=== PATIENT | female | born 1975 | race Caucasian/White ===

== ENCOUNTER 2021-01-20 09:47 | Emergency (ER) | payer BC, OTHER ==
[2021-01-20] MEDS ORDERED: NA CHLORIDE 0.9% 1,000 ML ONE (10:30)
[2021-01-20] MEDS ORDERED: METOCLOPRAMIDE 5 MG TAB ONE (10:31)
[2021-01-20] MEDS ORDERED: METOCLOPRAMIDE 10 MG/2mL INJ ONE (10:32)
[2021-01-20] MEDS ORDERED: dexAMETHasone 10 MG/ML VIAL ONE (10:33)
[2021-01-20] MEDS ORDERED: KETOROLAC 30 MG/ML INJ ONE (10:33)
[2021-01-20] MEDS ORDERED: DIPHENHYDRAMINE 12.5MG/5ML LIQ ONE (10:34)
[2021-01-20] MEDS ORDERED: DIPHENHYDRAMINE 50 MG/ML VIAL ONE (10:34)
--- NOTE | 2021-01-20 11:51 | RAD REPORT ---
EXAM DESCRIPTION: CT - Head Brain Wo Cont - 01/20/2021 11:41 am CLINICAL HISTORY: HEADACHE COMPARISON: HEAD BRAIN W O CONTRAST dated 12/20/2009; HEAD BRAIN W O CONTRAST dated 07/20/2007 TECHNIQUE: All CT scans are performed using dose optimization technique as appropriate and may inclu de automated exposure control or mA/KV adjustment according to patient size. FINDINGS: No intracranial hemorrhage, hydrocephalus or extra-axial fluid collection.No areas of brai n edema or evidence of midline shift. The paranasal sinuses and mastoids are clear. The calvarium is intact. IMPRESSION: No acute intracranial abnormality.
--- NOTE | 2021-01-20 12:43 | RAD REPORT ---
EXAM DESCRIPTION: CT - Head angio - 01/20/2021 12:22 pm CLINICAL HISTORY: HEADACHE TECHNIQUE: During dynamic enhancement using nonionic IV contrast, axial 1 millimeter thick images of the head were obtained. Sagittal and axial reconstruction images were generated using MIP technique and reviewed. All CT scans are performed using dose optimization technique as appropriate and may include automated exposure control or mA/KV adjustment according to patient size. COMPARISON: CT head same date FINDINGS: No aneurysm or vascular malformation identified. Major venous sinuses are patent. No stenosis, named branch occlusion, vasculitis or other significant vascular finding identifiable. L eft vertebral artery is dominant with vertebrobasilar tortuosity noted. IMPRESSION: Negative CT angio head examination for acute or significant finding.
[2021-01-20] MEDS ORDERED: DIAZEPAM 10 MG/2 ML INJ SYRINGE ONE (13:38)
--- NOTE | 2021-01-20 14:42 | ER ---
Nurse's Notes [facility] Name: Mary Malagon Age: 45 yrs Sex: Female : 1975 Arrival Date: 01/20/2021 Time: 09:50 Bed 18 Private MD: Diagnosis: Migraine Presentation: 01/20 10:07 Chief complaint: Patient states: Woke up severe migraine on Sunday, took sumatriptan jl7 yesterday and Sunday and nothing is working. Coronavirus screen: At this time, the client does not indicate any symptoms associated with coronavirus-19. Ebola Screen: No symptoms or risks identified at this time. Risk Assessment: Do you want to hurt yourself or someone else? Patient reports no desire to harm self or others. Onset of symptoms was January 18, 2021. Care prior to arrival: None. 10:07 Method Of Arrival: Ambulatory jl7 10:07 Acuity: FRAN 3 jl7 10:30 Initial Sepsis Screen: Does the patient meet any 2 criteria? No. Patient's initial jg9 sepsis screen is negative. 10:30 Initial Sepsis Screen: Does the patient have a suspected source of infection? No. jg9 Patient's initial sepsis screen is negative. Triage Assessment: 10:07 General: Appears in no apparent distress. uncomfortable, Behavior is calm, cooperative, jl7 appropriate for age. Pain: Complains of pain in J[place]ON Pain currently is 10 out of 10 on a pain scale. Neuro: Level of Consciousness is awake, alert, obeys commands, Oriented to person, place, time, situation. Cardiovascular: Patient's skin is warm and dry. Respiratory: Airway is patent Respiratory effort is even, unlabored, Respiratory pattern is regular, symmetrical. Derm: Skin is pink, warm \T\ dry. 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 - Social history:: Smoking status: Patient denies any tobacco usage or history of. Screenin:30 Abuse screen: Denies threats or abuse. Denies injuries from another. Nutritional jg9 screening: No deficits noted. Tuberculosis screening: No symptoms or risk factors identified. Fall Risk None identified. Assessment: 10:30 General: Appears uncomfortable, Behavior is calm, cooperative, appropriate for age. jg9 Pain: Complains of pain in head-c/o migraine-hx of migraines medication not working at home Pain currently is 10 out of 10 on a pain scale. Aggravated by increased activity, heat, cold, Noted to be resistant to movement, front and back of head-ice pack place per pt request. Neuro: No deficits noted. Cardiovascular: No deficits noted. Respiratory: No deficits noted. GI: No deficits noted. : No deficits noted. EENT: No deficits noted. Derm: No deficits noted. Musculoskeletal: No deficits noted. Vital Signs: 10:07 BP 132 / 94; Pulse 115; Resp 19; Temp 98.2; Pulse Ox 100% ; Weight 63.5 kg; Height 5 jl7 ft. 7 in. (170.18 cm); Pain 10/10; 10:35 BP 133 / 82; Pulse 98; Resp 17 S; Pulse Ox 100% on R/A; jg9 11:05 BP 125 / 87; Pulse 89; Resp 17 S; Pulse Ox 100% on R/A; jg9 13:30 BP 132 / 78; Pulse 88; Resp 16; Pulse Ox 96% on R/A; jg9 14:30 BP 111 / 66; Pulse 97; Resp 14; Pulse Ox 99% on R/A; jg9 10:07 Body Mass Index 21.93 (63.50 kg, 170.18 cm) 7 ED Course: 09:50 Patient arrived in ED. kc5 10:05 Polo Martines PA is PHCP. jmm 10:05 Anu Benz MD is Attending Physician. jmm 10:07 Arm band placed on right wrist. Antipyretics given from triage as ordered by an ER jl7 provider. 10:10 Triage completed. jl7 10:28 Mary Berry is Primary Nurse. jg9 10:30 Patient has correct armband on for positive identification. Bed in low position. Call jg9 light in reach. Side rails up X 1. ice pack for migraine pain. 10:40 Inserted saline lock: 20 gauge in left antecubital area, using aseptic technique. jg9 11:42 CT Head Brain wo Cont In Process Unspecified. EDMS 12:22 CT Head Angio In Process Unspecified. EDMS 14:40 Otoniel Castellon MD is Referral Physician. [facility] 14:53 No provider procedures requiring assistance completed. jg9 14:53 IV discontinued. jg9 Administered Medications: 10:45 Drug: Ketorolac 30 mg Route: IVP; Site: left antecubital; jg9 11:15 Follow up: Response: No adverse reaction; Pain is unchanged, physician notified jg9 10:46 Drug: Decadron - Dexamethasone 10 mg Route: IVP; Site: left antecubital; jg9 11:15 Follow up: Response: No adverse reaction; No change in condition jg9 10:47 Drug: diphenhydrAMINE 12.5 mg Route: IVP; Site: left antecubital; jg9 11:15 Follow up: Response: No adverse reaction; No change in condition jg9 10:47 Drug: Reglan (metoCLOPramide) 20 mg Route: IVP; Site: left antecubital; jg9 11:15 Follow up: Response: No adverse reaction; Nausea is decreased jg9 10:47 Drug: NS 0.9% 1000 ml Route: IV; Rate: 1 bolus; Site: left antecubital; jg9 12:00 Follow up: IV Status: Completed infusion; IV Intake: 1000ml j9 13:42 Drug: Valium (diazepam) 5 mg Route: IVP; Site: left antecubital; jg9 14:00 Follow up: Response: No adverse reaction; Marked relief of symptoms j9 Intake: 12:00 IV: 1000ml; Total: 1000ml. jg9 Outcome: 14:41 Discharge ordered by . [facility] 14:53 Discharged to home ambulatory. jg9 14:53 Condition: stable 14:53 Discharge instructions given to patient, Instructed on discharge instructions, follow up and referral plans. Demonstrated understanding of instructions, follow-up care, medications, Prescriptions given X 1. 14:54 Patient left the ED. jg9 Signatures: Dispatcher [employer] Polo Ramos PA PA jmm Leal, Jahala, RN RN jl7 Lisa Del Real kc5 Mary Berry jg9
--- NOTE | 2021-01-20 14:42 | EDPHYS ---
Physician Documentation [facility] Name: Mary Malagon Age: 45 yrs Sex: Female : 1975 Arrival Date: 01/20/2021 Time: 09:50 Bed 18 Private MD: ED Physician Anu Benz HPI: 01/20 14:34 This 45 yrs old Female presents to ER via Ambulatory with complaints of Migraine. jmm 14:34 The patient complains of pain to the right frontal area, right temporal area, right jmm side of forehead, right gnosticist and right eye. Onset: The symptoms/episode began/occurred gradually, 3 day(s) ago. Associated signs and symptoms: Pertinent positives: Photophobia. This is a 45-year-old female with a history of mild migraines and hypothyroidism the presents emerged department with complaints of right-sided migraine beginning approximately 3 days ago which is not relieved with her daily medication and her prescription for Imitrex. Patient states that the light exacerbates symptoms and is also having nausea. Denies fever or neck stiffness. 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 - Social history:: Smoking status: Patient denies any tobacco usage or history of. ROS: 14:34 Constitutional: Negative for fever, chills, and weight loss. jmm 14:34 Eyes: Positive for photophobia. 14:34 Neuro: Positive for headache. 14:34 All other systems are negative. Exam: 14:34 Head/Face: atraumatic. Eyes: EOMI, no conjunctival erythema appreciated ENT: Moist jmm Mucus Membranes Neck: Trachea midline, Supple Chest/axilla: Normal chest wall appearance and motion. Cardiovascular: Regular rate and rhythm. No edema appreciated Respiratory: Normal respirations, no respiratory distress appreciated Abdomen/GI: Non distended, soft Back: Normal ROM Skin: General appearance color normal MS/ Extremity: Moves all extremities, no obvious deformities appreciated, no edema noted to the lower extremities Neuro: Awake and alert, normal gait Psych: Behavior is normal, Mood is normal, Patient is cooperative and pleasant 14:34 Constitutional: The patient appears alert, awake, uncomfortable. Vital Signs: 10:07 BP 132 / 94; Pulse 115; Resp 19; Temp 98.2; Pulse Ox 100% ; Weight 63.5 kg; Height 5 7 ft. 7 in. (170.18 cm); Pain 10/10; 10:35 BP 133 / 82; Pulse 98; Resp 17 S; Pulse Ox 100% on R/A; jg9 11:05 BP 125 / 87; Pulse 89; Resp 17 S; Pulse Ox 100% on R/A; jg9 13:30 BP 132 / 78; Pulse 88; Resp 16; Pulse Ox 96% on R/A; jg9 14:30 BP 111 / 66; Pulse 97; Resp 14; Pulse Ox 99% on R/A; jg9 10:07 Body Mass Index 21.93 (63.50 kg, 170.18 cm) 7 MDM: 10:13 Patient medically screened. [facility] 14:34 Data reviewed: vital signs, nurses notes. Counseling: I had a detailed discussion with sylvia the patient and/or guardian regarding: the historical points, exam findings, and any diagnostic results supporting the discharge/admit diagnosis, radiology results, the need for outpatient follow up, to return to the emergency department if symptoms worsen or persist or if there are any questions or concerns that arise at home. ED course: Patient's pain is relieved in the ED. I do not currently suspect subarachnoid hemorrhage or meningitis. Patient is afebrile nontoxic, neck is supple. Patient advised to follow-up with neurology for further evaluation otherwise given strict return precautions. Patient understood agrees plan of care.. 01/20 10:52 Order name: CT Head Brain wo Cont; Complete Time: 11:52 [facility] 01/20 12:04 Order name: CT Head Angio; Complete Time: 12:47 [facility] 01/20 10:15 Order name: Saline Lock; Complete Time: 10:48 [facility] Administered Medications: 10:45 Drug: Ketorolac 30 mg Route: IVP; Site: left antecubital; jg9 11:15 Follow up: Response: No adverse reaction; Pain is unchanged, physician notified jg9 10:46 Drug: Decadron - Dexamethasone 10 mg Route: IVP; Site: left antecubital; jg9 11:15 Follow up: Response: No adverse reaction; No change in condition jg9 10:47 Drug: diphenhydrAMINE 12.5 mg Route: IVP; Site: left antecubital; jg9 11:15 Follow up: Response: No adverse reaction; No change in condition jg9 10:47 Drug: Reglan (metoCLOPramide) 20 mg Route: IVP; Site: left antecubital; jg9 11:15 Follow up: Response: No adverse reaction; Nausea is decreased jg9 10:47 Drug: NS 0.9% 1000 ml Route: IV; Rate: 1 bolus; Site: left antecubital; jg9 12:00 Follow up: IV Status: Completed infusion; IV Intake: 1000ml jg9 13:42 Drug: Valium (diazepam) 5 mg Route: IVP; Site: left antecubital; jg9 14:00 Follow up: Response: No adverse reaction; Marked relief of symptoms jg9 Disposition: 01/21 07:50 Co-signature as Attending Physician, Anu Benz MD I agree with the assessment and sp3 plan of care. Disposition Summary: 01/20/21 14:41 Discharge Ordered Location: Home [facility] Condition: Stable [facility] Diagnosis - Migraine [facility] Followup: [facility] - With: Otoniel Castellon MD - When: 2 - 3 days - Reason: Recheck today's complaints, Continuance of care, Re-evaluation by your physician Discharge Instructions: - Discharge Summary Sheet [facility] - Migraine Headache [facility] Forms: - Medication Reconciliation Form [facility] - Thank You Letter [facility] - Antibiotic Education [facility] - Prescription Opioid Use [facility] Prescriptions: - Zanaflex 4 mg Oral Tablet - take 1 tablet by ORAL route every 8 hours As needed; 20 tablet; Refills: 0, jmm Product Selection Permitted Signatures: Dispatcher [employer] EDPolo Castillo PA PA jmm Leal, Jahala, RN RN jl7 Anu Benz MD MD sp3 Mary Berry jg9
[2021-01-20 15:08] VITALS: TEMP 98.2
[2021-01-20 15:20] VITALS: BP 111/66; O2SAT 99
== END 2021-01-20 14:54 | disposition home or self-care (01) ==
LOC: ER 09:47
DX: G43.909 Migraine, unspecified, not intractable, without status migrainosus (principal); E03.9 Hypothyroidism, unspecified
CPT/HCPCS: 96361; 82565; 70450; 70496; 96375; 96374; 99284; Q9967; J2765; J1200; J3360; J1100; J7030; Q0163

== ENCOUNTER 2021-02-05 19:15 | Observation (INO) | payer BC ==
[2021-02-05] MEDS ORDERED: ASPIRIN 81 MG CHEWABLE TABLET ONE ×2 (19:25→22:07)
[2021-02-05 19:48] LABS: Absolute Lymphocytes (CBC) 0.8 K/uL (0.7-4.9); Basophils % 0.6 % (0-1.3); Hematocrit 41.3 % (36.0-45.0); Lymphocytes % 12.5 % (15.3-44.8); MPV 7.3 fL (7.6-11.3); RBC Red Blood Cell Count 4.92 M/uL (3.86-4.86)
[2021-02-05 20:08] LABS: ALT/SGPT 25 U/L (12-78); AST/SGOT 14 U/L (15-37); Albumin 3.6 g/dL (3.4-5.0); Alkaline Phosphatase 75 U/L (45-117); BUN Blood Urea Nitrogen 13 mg/dL (7-18); Bicarbonate 22 mmol/L (21-32); Bilirubin Direct < 0.1 mg/dL (0-0.2); Bilirubin Total 0.2 mg/dL (0.2-1.0); Glucose Level 106 mg/dL (74-106); NT PRO-BNP 22 pg/mL (<125); Potassium 3.9 mmol/L (3.5-5.1); Protein, Total 7.6 g/dL (6.4-8.2); Sodium Level 138 mmol/L (136-145); Troponin (Emerg Dept Use Only) < 0.02 ng/mL (0.0-0.045)
[2021-02-05] MEDS ORDERED: MORPHINE 4 MG/ML SYR ONE ×2 (20:22→22:07)
[2021-02-05] MEDS ORDERED: ONDANSETRON 4 MG/2 ML VIAL ONE (20:22)
--- NOTE | 2021-02-05 20:41 | RAD REPORT ---
EXAM DESCRIPTION: RAD - Chest Single View - 02/05/2021 7:53 pm CLINICAL HISTORY: CHEST PAIN COMPARISON: CHEST SINGLE VIEW dated 03/20/2012; CHEST SINGLE VIEW dated 03/15/2012; CHEST SINGLE VIEW da angie 12/20/2009; CHEST PA AND LAT 2 VIEW dated 07/06/2009 FINDINGS: Lines: None. Lungs: No evidence of edema or pneumonia. Pleural: No significant pleural effusions or pneumothorax. Cardiac: The heart size is within normal limits. Bones: No acute fractures. Other: IMPRESSION: No acute cardiopulmonary disease.
--- NOTE | 2021-02-05 21:00 | RAD REPORT ---
EXAM DESCRIPTION: CTAngio Aorta For Dissection - 02/05/2021 8:46 pm CLINICAL HISTORY: Dyspnea;Pain COMPARISON: No comparisons TECHNIQUE: CT of the chest, abdomen, and pelvis was performed. All CT scans are performed using dose optimization technique as appropriate and may include automated exposure control or mA/KV adjustment according to patient size. FINDINGS: Thorax: Chest Wall: No abnormal mass Lungs: No acute abnormality. Pleura: No effusions or pneumothorax. Nancy/Mediastinum: No lymphadenopathy. Small hiatal hernia. Mild circumferential thickened distal esop hagus which may reflect esophagitis. Aorta/Pulmonary Arteries: Unremarkable Heart: Normal size. Abdomen/Pelvis: Liver: No acute abnormality or suspicious lesions. Biliary: No biliary ductal dilatation. Stomach: No significant focal abnormality. Duodenum: No significant focal abnormality. Pancreas: No significant abnormality. Spleen: No significant abnormality. Adrenal: No suspicious lesions. Kidney/ureter: No hydronephrosis. No renal calculi. Retroperitoneum: No retroperitoneal adenopathy. Vascular: No aneurysm. Atherosclerosis. Bowel: No significant focal abnormality. Peritoneum: No ascites or free air. Bladder: Grossly unremarkable. Reproductive: No adnexal masses. Bones: No acute fracture. Other: n/a IMPRESSION: No acute findings within the chest, abdomen, or pelvis. No aortic aneurysm, aortic disse ction, or pulmonary embolus identified.
--- NOTE | 2021-02-05 21:11 | ER ---
Nurse's Notes [facility] Name: Mary Malagon Age: 45 yrs Sex: Female : 1975 Arrival Date: 02/05/2021 Time: 19:18 Bed 17 Private MD: Diagnosis: Chest pain, unspecified;Essential (primary) hypertension;Tachycardia, unspecified Presentation: 02/05 19:24 Chief complaint: Patient states: Chest pain X 2 hours - radiating down left arm and up ld1 left side of neck and into left shoulder blade. Coronavirus screen: At this time, the client does not indicate any symptoms associated with coronavirus-19. Ebola Screen: No symptoms or risks identified at this time. Initial Sepsis Screen: Does the patient meet any 2 criteria? No. Patient's initial sepsis screen is negative. Does the patient have a suspected source of infection? No. Patient's initial sepsis screen is negative. Onset of symptoms was February 05, 2021. 19:24 Method Of Arrival: Wheelchair ld1 19:24 Acuity: FRAN 3 ld1 22:00 Risk Assessment: Do you want to hurt yourself or someone else? Patient reports no mr2 desire to harm self or others. Triage Assessment: 19:31 General: Appears in no apparent distress. uncomfortable, Behavior is anxious, crying. ld1 Pain: Complains of pain in left breast Pain radiates to face, anterior aspect of left shoulder, left bicep and left sternocleidomastoid Pain currently is 10 out of 10 on a pain scale. Quality of pain is described as shooting, stabbing, throbbing, Pain began gradually, Is intermittent. Cardiovascular: Capillary refill < 3 seconds Patient's skin is warm and dry. Rhythm is sinus tachycardia. Respiratory: Reports shortness of breath Airway is patent Respiratory effort is even, unlabored, Respiratory pattern is regular, symmetrical, Onset: The symptoms/episode began/occurred gradually, the patient has mild shortness of breath. 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 - Social history:: Smoking status: Patient denies any tobacco usage or history of. Patient uses alcohol, occasionally. - Family history:: not pertinent. Screenin:00 Abuse screen: Denies threats or abuse. Denies injuries from another. Nutritional mr2 screening: No deficits noted. Tuberculosis screening: No symptoms or risk factors identified. Fall Risk None identified. Assessment: 23:00 Cardiovascular: No deficits noted. Respiratory: Airway is patent Breath sounds are mr2 clear. Vital Signs: 19:31 BP 157 / 114; Pulse 130; Resp 22; Temp 98.6(O); Pulse Ox 100% on R/A; Weight 63.5 kg; ld1 Height 5 ft. 7 in. (170.18 cm); Pain 10/10; 23:40 BP 124 / 84; Pulse 84; Resp 18; Temp 98.4; Pulse Ox 100% on R/A; Weight 63.5 kg; Height mr2 5 ft. 2 in. (157.48 cm); 23:40 Body Mass Index 25.61 (63.50 kg, 157.48 cm) mr2 ED Course: 19:18 Patient arrived in ED. ja2 19:31 Triage completed. ld1 19:31 Arm band placed on right wrist. ld1 19:37 Inserted saline lock: 20 gauge in left antecubital area, using aseptic technique. Blood ld1 collected. 19:53 XRAY Chest (1 view) In Process Unspecified. EDMS 20:13 Scott Esteban MD is Attending Physician. keven 20:46 CT Aorta for Dissection In Process Unspecified. EDMS 21:02 Marty Monique, GAVINO is Primary Nurse. mr2 21:10 Alejo Ray DO is Hospitalizing Provider. keven 22:00 Patient has correct armband on for positive identification. mr2 22:00 No provider procedures requiring assistance completed. Patient admitted, IV remains in mr2 place. Administered Medications: 20:40 Drug: morphine 4 mg Route: IVP; Site: left antecubital; mr2 20:40 Drug: Zofran (Ondansetron) 4 mg Route: IVP; Site: right antecubital; mr2 22:03 Drug: Reglan (metoCLOPramide) 10 mg Route: IVP; Site: left antecubital; mr2 22:03 Drug: morphine 2 mg Route: IVP; Site: left antecubital; mr2 22:03 Drug: Benadryl (diphenhydrAMINE) 25 mg Route: IVP; Site: left antecubital; mr2 22:03 Drug: Ketorolac 15 mg Route: IVP; Site: left antecubital; mr2 22:04 Drug: Aspirin Chewable Tablet 324 mg Route: PO; mr2 22:05 Drug: Labetalol 100 mg Route: PO; mr2 23:00 Drug: NS 0.9% 500 ml Route: IV; Rate: bolus; Site: left antecubital; mr2 23:01 Drug: morphine 2 mg Route: IVP; Site: left antecubital; mr2 23:02 Not Given (not indicatedd): Labetalol 10 mg IVP once over 2 mins; For SBP greater than mr2 140. Hold for HR less than 60, notify provider. 02/06 00:29 Not Given (Other Intervention Used): Labetalol 10 mg IVP once la1 00:31 Not Given (Patient Refused): ProTONIX (pantoprazole) 40 mg IVP once mr2 Outcome: 02/05 21:11 Decision to Hospitalize by Provider. keven 23:50 Admitted to Med/surg mr2 23:50 Condition: stable 23:50 Instructed on the need for admit. 02/06 00:38 Patient left the ED. mr2 Signatures: Dispatcher [employer] EDMS Scott Esteban MD MD cha Dibbern, Lauren, RN RN ld1 Priyanka Pratt Mike, RN RN mr2 Venu Michael [facility]
--- NOTE | 2021-02-05 21:11 | EDPHYS ---
Physician Documentation [facility] Name: Mary Malagon Age: 45 yrs Sex: Female : 1975 Arrival Date: 02/05/2021 Time: 19:18 Bed 17 Private MD: ED Physician Scott Esteban HPI: 02/05 20:23 This 45 yrs old Female presents to ER via Wheelchair with complaints of keven Breathing Difficulty, Chest Pain, Shortness Of Breath. 20:23 The patient has shortness of breath at rest, with light activity. Onset: The keven symptoms/episode began/occurred just prior to arrival. Duration: The symptoms are continuous, and are steadily getting worse. The patient's shortness of breath is aggravated by nothing, is alleviated by nothing. Associated signs and symptoms: Pertinent positives: chest pain, diaphoresis. Severity of symptoms: At their worst the symptoms were severe in the emergency department the symptoms are unchanged. 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 - Social history:: Smoking status: Patient denies any tobacco usage or history of. Patient uses alcohol, occasionally. - Family history:: not pertinent. ROS: 20:26 Constitutional: Negative for fever, chills, and weight loss, Eyes: Negative for injury, keven pain, redness, and discharge, ENT: Negative for injury, pain, and discharge, Neck: Negative for injury, pain, and swelling, Abdomen/GI: Negative for abdominal pain, nausea, vomiting, diarrhea, and constipation, Back: Negative for injury and pain, : Negative for injury, bleeding, discharge, and swelling, MS/Extremity: Negative for injury and deformity, Skin: Negative for injury, rash, and discoloration, Neuro: Negative for headache, weakness, numbness, tingling, and seizure, Psych: Negative for depression, anxiety, suicide ideation, homicidal ideation, and hallucinations, Allergy/Immunology: Negative for hives, rash, and allergies, Endocrine: Negative for neck swelling, polydipsia, polyuria, polyphagia, and marked weight changes, Hematologic/Lymphatic: Negative for swollen nodes, abnormal bleeding, and unusual bruising. 20:26 Cardiovascular: Positive for chest pain, of the chest. 20:26 Respiratory: Positive for shortness of breath, at rest. Exam: 20:26 Constitutional: This is a well developed, well nourished patient who is awake, alert, keven and in no acute distress. Head/Face: Normocephalic, atraumatic. Eyes: Pupils equal round and reactive to light, extra-ocular motions intact. Lids and lashes normal. Conjunctiva and sclera are non-icteric and not injected. Cornea within normal limits. Periorbital areas with no swelling, redness, or edema. ENT: Nares patent. No nasal discharge, no septal abnormalities noted. Tympanic membranes are normal and external auditory canals are clear. Oropharynx with no redness, swelling, or masses, exudates, or evidence of obstruction, uvula midline. Mucous membranes moist. Neck: Trachea midline, no thyromegaly or masses palpated, and no cervical lymphadenopathy. Supple, full range of motion without nuchal rigidity, or vertebral point tenderness. No Meningismus. Chest/axilla: Normal chest wall appearance and motion. Nontender with no deformity. No lesions are appreciated. Respiratory: Lungs have equal breath sounds bilaterally, clear to auscultation and percussion. No rales, rhonchi or wheezes noted. No increased work of breathing, no retractions or nasal flaring. Abdomen/GI: Soft, non-tender, with normal bowel sounds. No distension or tympany. No guarding or rebound. No evidence of tenderness throughout. Back: No spinal tenderness. No costovertebral tenderness. Full range of motion. Skin: Warm, dry with normal turgor. Normal color with no rashes, no lesions, and no evidence of cellulitis. MS/ Extremity: Pulses equal, no cyanosis. Neurovascular intact. Full, normal range of motion. Neuro: Awake and alert, GCS 15, oriented to person, place, time, and situation. Cranial nerves II-XII grossly intact. Motor strength 5/5 in all extremities. Sensory grossly intact. Cerebellar exam normal. Normal gait. Psych: Awake, alert, with orientation to person, place and time. Behavior, mood, and affect are within normal limits. 20:26 Cardiovascular: Rate: tachycardic, Rhythm: regular, Pulses: Pulses are 4+ in bilateral radial, brachial, femoral, popliteal, posterior tibial and and dorsalis pedis arteries.. Heart sounds: normal, Edema: is not appreciated, JVD: is not appreciated. 20:26 ECG was reviewed by the Attending Physician. Vital Signs: 19:31 BP 157 / 114; Pulse 130; Resp 22; Temp 98.6(O); Pulse Ox 100% on R/A; Weight 63.5 kg; ld1 Height 5 ft. 7 in. (170.18 cm); Pain 10/10; 23:40 BP 124 / 84; Pulse 84; Resp 18; Temp 98.4; Pulse Ox 100% on R/A; Weight 63.5 kg; Height mr2 5 ft. 2 in. (157.48 cm); 23:40 Body Mass Index 25.61 (63.50 kg, 157.48 cm) mr2 MDM: 20:13 Patient medically screened. keven 20:31 Differential diagnosis: Anemia Anxiety Reaction CHF exacerbation, Myocardial Infarction keven pneumonia, Pneumothorax pulmonary edema, Pulmonary Embolism Unstable Angina. Antibiotic administration: Not indicated. The patient's Wells Deep Vein Thrombosis Score was calculated as follows: Total Score: 0-2 Pts- Low Risk. The patient's pulmonary embolism risk score was calculated as follows: Total Score: 0-2 points. This patient was found to be at low risk for a pulmonary embolism by using the Well's assessment criteria. Immunization status:. Data reviewed: vital signs, nurses notes, lab test result(s), EKG, radiologic studies, CT scan, plain films. 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 Test interpretation: by ED physician or midlevel provider: ECG, plain radiologic studies. Counseling: I had a detailed discussion with the patient and/or guardian regarding: the historical points, exam findings, and any diagnostic results supporting the discharge/admit diagnosis, lab results, radiology results, the need for further work-up and treatment in the hospital. 02/05 19:34 Order name: Basic Metabolic Panel ld1 02/05 19:34 Order name: CBC with Diff; Complete Time: 20:18 [facility] 02/05 19:34 Order name: LFT's; Complete Time: 20:18 [facility] 02/05 19:34 Order name: Magnesium; Complete Time: 20:18 [facility] 02/05 19:34 Order name: NT PRO-BNP; Complete Time: 20:18 [facility] 02/05 19:34 Order name: PT-INR; Complete Time: 20:18 [facility] 02/05 19:34 Order name: Troponin (emerg Dept Use Only); Complete Time: 20:18 [facility] 02/05 19:34 Order name: XRAY Chest (1 view); Complete Time: 21:08 [facility] 02/05 19:35 Order name: Basic Metabolic Panel; Complete Time: 20:18 [facility] 02/05 20:21 Order name: SARS-COV-2 RT PCR (Document "Date of Onset" if Symptomatic) [facility] 02/05 20:21 Order name: Lipase [facility] 02/05 20:21 Order name: CT Aorta for Dissection; Complete Time: 21:08 [facility] 02/05 20:22 Order name: Urine Culture [facility] 02/05 19:34 Order name: EKG; Complete Time: 19:35 [facility] 02/05 19:34 Order name: Cardiac monitoring; Complete Time: 20:00 [facility] 02/05 19:34 Order name: EKG - Nurse/Tech; Complete Time: 19:35 [facility] 02/05 19:34 Order name: IV Saline Lock; Complete Time: 19:37 [facility] 02/05 19:34 Order name: Labs collected and sent; Complete Time: 19:37 [facility] 02/05 19:34 Order name: O2 Per Protocol; Complete Time: 19:35 [facility] 02/05 19:34 Order name: O2 Sat Monitoring; Complete Time: 19:35 [facility] 02/05 20:22 Order name: Urine Dipstick-Ancillary (obtain specimen); Complete Time: 00:31 [facility] EC:26 Rate is 134 beats/min. Rhythm is regular. QRS [place] is Normal. [place] interval is normal. [facility] QRS interval is normal. QT interval is normal. No Q waves. T waves are Normal. No ST changes noted. Clinical impression: Sinus tachycardia and No evidence of ischemia. Interpreted by me. Reviewed by me. Administered Medications: 20:40 Drug: morphine 4 mg Route: IVP; Site: left antecubital; mr2 20:40 Drug: Zofran (Ondansetron) 4 mg Route: IVP; Site: right antecubital; mr2 22:03 Drug: Reglan (metoCLOPramide) 10 mg Route: IVP; Site: left antecubital; mr2 22:03 Drug: morphine 2 mg Route: IVP; Site: left antecubital; mr2 22:03 Drug: Benadryl (diphenhydrAMINE) 25 mg Route: IVP; Site: left antecubital; mr2 22:03 Drug: Ketorolac 15 mg Route: IVP; Site: left antecubital; mr2 22:04 Drug: Aspirin Chewable Tablet 324 mg Route: PO; mr2 22:05 Drug: Labetalol 100 mg Route: PO; mr2 23:00 Drug: NS 0.9% 500 ml Route: IV; Rate: bolus; Site: left antecubital; mr2 23:01 Drug: morphine 2 mg Route: IVP; Site: left antecubital; mr2 23:02 Not Given (not indicatedd): Labetalol 10 mg IVP once over 2 mins; For SBP greater than mr2 140. Hold for HR less than 60, notify provider. 02/06 00:29 Not Given (Other Intervention Used): Labetalol 10 mg IVP once la1 00:31 Not Given (Patient Refused): ProTONIX (pantoprazole) 40 mg IVP once mr2 Disposition Summary: 02/05/21 21:11 Hospitalization Ordered Hospitalization Status: Observation keven Provider: Alejo Ray cha Location: Telemetry/MedSurg (observation) keven Condition: Fair keven Problem: new keven Symptoms: have improved keven Bed/Room Type: Standard keven Room Assignment: 212(02/05/21 22:49) cg Diagnosis - Chest pain, unspecified keven - Essential (primary) hypertension keven - Tachycardia, unspecified keven Forms: - Medication Reconciliation Form keven - SBAR form keven Signatures: Dispatcher [employer] EDScott Smith MD MD cha Attema, Lee, COFFEE SHOP AIDE-C COFFEE SHOP AIDE-Cla1 Itzel Eckert RN RN Camille Avalos RN RN ld1 Reynard, Marty, RN RN mr2 Corrections: (The following items were deleted from the chart) 02/05 22:49 21:11 [facility]
[2021-02-05] MEDS ORDERED: METOCLOPRAMIDE 10 MG/2mL INJ ONE (22:06)
[2021-02-05] MEDS ORDERED: DIPHENHYDRAMINE 50 MG/ML VIAL ONE (22:06)
[2021-02-05] MEDS ORDERED: KETOROLAC 30 MG/ML INJ ONE (22:07)
--- NOTE | 2021-02-05 22:29 | P.HP ---
Certification for Inpatient Patient admitted to: Observation With expected LOS: <2 Midnights Patient will require the following post-hospital care: None Practitioner: I am a practitioner with admitting privileges, knowledge of patient current condition, hospital course, and medical plan of care. Services: Services provided to patient in accordance with Admission requirements found in Title 42 Section 412.3 of the Code of Federal Regulations Patient History Date of Service: 02/05/21 Primary Care Provider: none Reason for admission: Chest pain History of Present Illness: 45-year-old female with history of hypothyroidism, migraine headaches presented to the emergency department for chest pain. Patient reports that she was sitting at home with family celebrating [place] when she got a sudden onset of pressure-like chest pain to the left anterior chest wall radiating to left arm with an additional stabbing chest pain between the left ribs. Patient was evaluated in the emergency department labs were unremarkable Covid test negative CT dissection protocol demonstrates no acute findings within the chest abdomen or pelvis no aortic aneurysm or aortic dissection or pulmonary embolus identified. Upon arrival to the ED patient was significantly hypertensive and tachycardic after receiving the medication is has improved greatly. EKG without acute changes, emergency department provider wishes to admit to observation for ACS rule out. 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 moist/pink, EOMI, Sclerae nonicteric Neck: Supple, 2+ carotid pulse no bruit, No LAD, Without JVD or thyroid abnormality Respiratory: Clear to auscultation bilaterally, Normal air movement Cardiovascular: Regular rate/rhythm, Normal S1 S2 Capillary refill: <2 Seconds Gastrointestinal: Normal bowel sounds, No tenderness Musculoskeletal: No tenderness Integumentary: No rashes Neurological: Normal speech, Normal strength at 5/5 x4 extr, Normal tone, Normal affect Lymphatics: No axilla or inguinal lymphadenopathy - Studies Laboratory Data (last 24 hrs) 02/05/21 19:40: Lipase 196 02/05/21 19:40: PT 11.5, INR 1.00 02/05/21 19:40: WBC 6.40, Hgb 13.6, Hct 41.3, Plt Count 250 02/05/21 19:40: Sodium 138, Potassium 3.9, BUN 13, Creatinine 0.90, Glucose 106, Magnesium 2.0, Total Bilirubin 0.2, AST 14 L, ALT 25, Alkaline Phosphatase 75 Assessment and Plan - Plan Assessment: Plan: Assessment: Chest pain rule out ACS Hypothyroidism Migraines Plan: Chest pain rule out ACS: Trend troponins, monitor on telemetry, cardiology consult in place. Continue with low-dose beta-tracie, aspirin, statin therapy. Obtain thyroid and lipid panels. Hypothyroidism: Thyroid panel with morning lab, obtain and continue medication. Migraines: Patient currently with migraine we will hold off on triptan therapy given current chest pain. Treated with IV medication. DVT PPX: Lovenox Code status: Full code Discharge Plan: Home Plan to discharge in: 24 Hours - Advance Directives Does patient have a Living Will: No Does patient have a Durable POA for Healthcare: No - Code Status/Comfort Care Code Status Assessed: Yes (FC) Critical Care: No Time Spent Managing Pts Care (In Minutes): 55
[2021-02-06] MEDS ORDERED: ONDANSETRON 4 MG/2 ML VIAL IV PRN (00:45)
[2021-02-06] MEDS ORDERED: SODIUM CHLORIDE 0.9% 10ML INJ IV PRN (00:45)
[2021-02-06] MEDS ORDERED: MORPHINE 2 MG/ML SYR IV PRN (00:45)
[2021-02-06 01:15] VITALS: BMI 21.8
[2021-02-06 01:17] VITALS: TEMP 98.7
[2021-02-06 02:41] LABS: Absolute Lymphocytes (CBC) 1.3 K/uL (0.7-4.9); Basophils % 0.7 % (0-1.3); Hematocrit 40.1 % (36.0-45.0); Lymphocytes % 26.3 % (15.3-44.8); MPV 7.3 fL (7.6-11.3); RBC Red Blood Cell Count 4.76 M/uL (3.86-4.86)
[2021-02-06 03:10] LABS: Albumin 3.2 g/dL (3.4-5.0); Bilirubin Total 0.2 mg/dL (0.2-1.0); Magnesium 2.2 mg/dL (1.8-2.4); Potassium 3.8 mmol/L (3.5-5.1)
[2021-02-06 03:11] LABS: Thyroid Stimulating Hormone 6.33 uIU/mL (0.360-3.740)
--- NOTE | 2021-02-06 05:59 | P.DS ---
Admission Date: 02/05/21 Discharge Date: 02/06/21 Primary Care Provider: none Disposition: ROUTINE DISCHARGE Discharge Condition: GOOD Reason for Admission: Chest pain Consultations: none Procedures: COVID: Negative CXR: COMPARISON: CHEST SINGLE VIEW dated 03/20/2012; CHEST SINGLE VIEW dated 03/15/2012; CHEST SINGLE VIEW dated 12/20/2009; CHEST PA AND LAT 2 VIEW dated 07/06/2009 FINDINGS: Lines: None. Lungs: No evidence of edema or pneumonia. Pleural: No significant pleural effusions or pneumothorax. Cardiac: The heart size is within normal limits. Bones: No acute fractures. IMPRESSION: No acute cardiopulmonary disease. CT dissection: COMPARISON: No comparisons TECHNIQUE: CT of the chest, abdomen, and pelvis was performed. All CT scans are performed using dose optimization technique as appropriate and may include automated exposure control or mA/KV adjustment according to patient size. FINDINGS: Thorax: Chest Wall: No abnormal mass Lungs: No acute abnormality. Pleura: No effusions or pneumothorax. Nancy/Mediastinum: No lymphadenopathy. Small hiatal hernia. Mild circumferential thickened distal esophagus which may reflect esophagitis. Aorta/Pulmonary Arteries: Unremarkable Heart: Normal size. Abdomen/Pelvis: Liver: No acute abnormality or suspicious lesions. Biliary: No biliary ductal dilatation. Stomach: No significant focal abnormality. Duodenum: No significant focal abnormality. Pancreas: No significant abnormality. Spleen: No significant abnormality. Adrenal: No suspicious lesions. Kidney/ureter: No hydronephrosis. No renal calculi. Retroperitoneum: No retroperitoneal adenopathy. Vascular: No aneurysm. Atherosclerosis. Bowel: No significant focal abnormality. Peritoneum: No ascites or free air. Bladder: Grossly unremarkable. Reproductive: No adnexal masses. Bones: No acute fracture. IMPRESSION: No acute findings within the chest, abdomen, or pelvis. No aortic aneurysm, aortic dissection, or pulmonary embolus identified. Medical Problem List: Chest pain likely related to GERD/Hiatal hernia with CT scan showing mild circumferential thickening to the distal esophagus suggestive of esophagitis Hypothyroidism Migraines Brief History of Present Illness: 45-year-old female with history of hypothyroidism, migraines. She presented with chest pain. She was celebrating [place] when she felt a sudden chest pressure to the left chest wall. It was a stabbing-like sensation between her ribs. Patient came to the ER for further evaluation. Patient initially hypertensive and tachycardic. Patient was admitted for further evaluation and treatment. Hospital Course: Patient presented with chest pain. Patient was evaluated in the emergency room. No significant EKG changes noted. Cardiac enzymes have been unremarkable. CT scan revealed mild circumferential thickening to the distal esophagus suggestive of esophagitis. Small hiatal hernia noted. Patient has done well. As mentioned cardiac enzymes unremarkable. Blood pressure was initially elevated blood pressure and heart rate. Patient was given medication in the ER. Blood pressure back to baseline. No need for medication at this time. Patient without significant pain at discharge. At discharge recommend to follow-up with her PCP within 1 week to follow-up this hospitalization. At discharge will recommend to start Protonix 40 mg daily. Education on GERD/hiatal hernia with esophagitis will be provided. Recommend follow-up with GI as an outpatient to further evaluate. GERD diet provided. We will also recommend cardiology evaluation as an outpatient to further address. Patient with hypothyroidism. Overall stable. At discharge patient will continue with her medicationSynthroid 75 mcg daily. Patient with history of migraines. Patient will continue with nortriptyline 25 mg at bedtime and Imitrex 100 mg as directed on onset of migraine. Vital Signs/Physical Exam: Temp Pulse Resp BP Pulse Ox 98.7 F 80 20 104/52 L 91 02/06/21 01:15 02/06/21 01:15 02/06/21 01:15 02/06/21 01:15 02/06/21 01:15 General: Alert, In no apparent distress, Oriented x3, Cooperative HEENT: Atraumatic Neck: Supple Respiratory: Clear to auscultation bilaterally, Normal air movement Cardiovascular: Normal pulses, Regular rate/rhythm Gastrointestinal: Normal bowel sounds, No ascites Musculoskeletal: No erythema, No tenderness, No warmth Integumentary: No tenderness/swelling, No erythema, No warmth, No cyanosis Neurological: Normal speech, Normal strength at 5/5 x4 extr, Normal tone Laboratory Data at Discharge: WBC 5.00 K/uL (4.3-10.9) D 02/06/21 02:22 Hgb 13.1 g/dL (12.0-15.0) 02/06/21 02:22 Hct 40.1 % (36.0-45.0) 02/06/21 02:22 Plt Count 219 K/uL (152-406) 02/06/21 02:22 PT 11.5 SECONDS (9.5-12.5) 02/05/21 19:40 INR 1.00 02/05/21 19:40 Sodium 139 mmol/L (136-145) 02/06/21 02:22 Potassium 3.8 mmol/L (3.5-5.1) 02/06/21 02:22 BUN 12 mg/dL (7-18) 02/06/21 02:22 Creatinine 0.79 mg/dL (0.55-1.3) 02/06/21 02:22 Glucose 88 mg/dL (74-106) 02/06/21 02:22 Magnesium 2.2 mg/dL (1.8-2.4) 02/06/21 02:22 Total Bilirubin 0.2 mg/dL (0.2-1.0) 02/06/21 02:22 AST 19 U/L (15-37) 02/06/21 02:22 ALT 23 U/L (12-78) 02/06/21 02:22 Alkaline Phosphatase 68 U/L (45-117) 02/06/21 02:22 Troponin I < 0.02 ng/mL (0.0-0.045) 02/06/21 02:22 Lipase 196 U/L (73-393) 02/05/21 19:40 Home Medications: Levothyroxine Sodium [Levothyroxine] 75 mcg PO [id number] 02/06/21 Nortriptyline HCl 25 mg PO BEDTIME 02/06/21 Pantoprazole [Protonix Tab] 40 mg PO DAILY #30 tab 02/06/21 Sumatriptan Succinate [Imitrex] 100 mg PO DAILY PRN 02/06/21 New Medications: Pantoprazole [Protonix Tab] 40 mg PO DAILY #30 tab Physician Discharge Instructions: Patient presented with chest pain. Patient was evaluated in the emergency room. No significant EKG changes noted. Cardiac enzymes have been unremarkable. CT scan revealed mild circumferential thickening to the distal esophagus suggestive of esophagitis. Small hiatal hernia noted. Patient has done well. As mentioned cardiac enzymes unremarkable. Blood pressure was initially elevated blood pressure and heart rate. Patient was given medication in the ER. Blood pressure back to baseline. No need for medication at this time. Patient without significant pain at discharge. At discharge recommend to follow-up with her PCP within 1 week to follow-up this hospitalization. At discharge will recommend to start Protonix 40 mg daily. Education on GERD/hiatal hernia with esophagitis will be provided. Recommend follow-up with GI as an outpatient to further evaluate. GERD diet provided. We will also recommend cardiology evaluation as an outpatient to further address. Patient with hypothyroidism. Overall stable. At discharge patient will continue with her medicationSynthroid 75 mcg daily. Patient with history of migraines. Patient will continue with nortriptyline 25 mg at bedtime and Imitrex 100 mg as directed on onset of migraine. Diet: AHA Activity: Ad moreno Followup: Unknown,U [Primary Care Provider] - Time spent managing pt's care (in minutes): 55
[2021-02-06] MEDS ORDERED: METOPROLOL TAR 25 MG TAB PO SCH (06:00)
[2021-02-06 06:26] VITALS: BP 109/65
[2021-02-06] MEDS ORDERED: ASPIRIN EC 81 MG TAB PO SCH (09:00)
[2021-02-06] MEDS ORDERED: ENOXAPARIN 40 MG/0.4 ML SQ SCH (09:00)
[2021-02-06] MEDS ORDERED: PANTOPRAZOLE 40 MG INJ IVP SCH ×2 (09:00)
[2021-02-06 11:38] VITALS: O2SAT 98
[2021-02-06] MEDS ORDERED: ATORVASTATIN 40 MG TAB PO SCH (21:00)
[2021-02-07] MEDS ORDERED: PANTOPRAZOLE 40MG TABLET PO SCH (06:30)
== END 2021-02-06 09:42 | disposition home or self-care (01) ==
LOC: ER 19:15 → ERHOLD 23:19 → 2ND 02-06 00:06
PROVIDERS: ADMIT Family Medicine; ATTEND Family Medicine
DX: R07.9 Chest pain, unspecified (principal); E03.9 Hypothyroidism, unspecified; G43.909 Migraine, unspecified, not intractable, without status migrainosus; K44.9 Diaphragmatic hernia without obstruction or gangrene; Z20.822 Contact with and (suspected) exposure to COVID-19
CPT/HCPCS: 85025 ×2; 80048; 36415; 83735 ×2; 85610; 80076; 84443; 84484 ×3; 84439; 83690; 80053; 83880; 71275; 74175; 71045; U0003; Q9967; J2765; J1200; C9113 ×2; J1650; J2270; J2405; 93005; G0378

== ENCOUNTER 2021-02-10 10:43 | Emergency (ER) | payer BC ==
--- OUTSIDE RECORDS SUMMARY | 2021-02-10 10:46 | XMS REPORT | Continuity of Care Document ---
:1975 Author Organization [facility] t Address [address] [place] [address] Care Team Providers Name Role Phone Aroldo Luis Antonio Primary Care Physician Only, Db Test Attending Clinician Unavailable Fede BOGGS Attending Clinician FEDE Attending Clinician Unavailable VALERIY Attending Clinician Unavailable Jose KANG Attending Clinician Unavailable Valeriy BOGGS Attending Clinician Pob, Lab Main Attending Clinician Unavailable Doctor Unassigned, Name Attending Clinician Unavailable ABILIO KIRK Attending Clinician Unavailable JEANNINE Attending Clinician Unavailable JEANNINE Admitting Clinician Unavailable Payers Payer Name Policy Type Policy Number Effective Date Expiration Date S ource Problems Condition Condition Condition Status Onset Resolution Last Treating Co mments Source Name Details Category Date Date Treatment Clinician Date No known No known Disease Unive rs active active ity of problems problems [facility] Allergies, Adverse Reactions, Alerts Allergy Allergy Status Severity Reaction(s) Onset Inactive Treating Comm ents Source Name Type Date Date Clinician NO KNOWN Drug Active Univers ALLERGIE Class ity of S [facility] Social History Social Habit Start Date Stop Date Quantity Comments Source History of tobacco Cigarette Smoker [place] of use [facility] Alcohol Comment occasional Universit y [facility] Exposure to Yes University SARS-CoV-2 (event) [facility] Cigarettes smoked 2020-05-10 2020-05-10 Univers ity of current (pack per 00:00:00 00:00:00 ) - Reported Branch Cigarette 2020-05-10 2020-05-10 University of pack-years 00:00:00 00:00:00 [facility] Alcohol intake 2020-05-10 2020-05-10 Current drinker Unive rsity of 00:00:00 00:00:00 of alcohol [facility] (finding) Branch Sex [birth year] Universit y of 00:00:00 00:00:00 [facility] Smoking Status Start Date Stop Date Source Current every day smoker 2020-05-10 00:00:00 Uni versity of [facility] Medications Ordered Filled Start Stop Current Ordering Indication Dosage Frequency Signature Comments Components Source Medication Medication Date Date Medication? Clinician (SIG) Name Name levothyroxi 150ug Take 150 Univers ne 150 mcg 3-30 03-30 mcg by ity of tablet 17:25: 00:00 mouth [place] 18 :00 every Medical morning. Branch levothyroxi Yes [id number] 125ug Take 1 Univers ne 125 mcg 3-30 tablet by ity of tablet 00:00: mouth [place] 00 every Medical morning. Branch levothyroxi Yes [id number] 125ug Take 1 Univers ne 125 mcg 3-30 tablet by ity of tablet 00:00: mouth [place] 00 every Medical morning. Branch Addis-3-DHA Yes Take by Un omega -EPA-Fish 05-10 mouth. ity of Oil (FISH 19:44: [place] OIL) 1,200 27 Medical (144-216) Branch mg Cap Cholecalcif Yes Take by Un omega travis, 05-10 mouth. ity of Vitamin D3, 19:44: [place] (VITAMIN 27 Medical D3) 125 mcg Branch (5,000 unit) tablet Green Tea Yes Take by Univ ers [place] 05-10 mouth. ity of Extract 19:44: [place] (GREEN TEA) 27 Medical 250 mg Cap Branch Addis-3-DHA Yes Take by Un omega -EPA-Fish 05-10 mouth. ity of Oil (FISH 19:44: [place] OIL) 1,200 27 Medical (144-216) Branch mg Cap Cholecalcif Yes Take by Un omega travis, - mouth. ity of Vitamin D3, 19:44: [place] (VITAMIN 27 Medical D3) 125 mcg Branch (5,000 unit) tablet Green Tea Yes Take by [facility] ers [place] 05-10 mouth. ity of Extract 19:44: [place] (GREEN TEA) 27 Medical 250 mg Cap Branch Addis-3-DHA Yes Take by Un omega -EPA-Fish 05-10 mouth. ity of Oil (FISH 19:44: [place] OIL) 1,200 27 Medical (144-216) Branch mg Cap Cholecalcif 0 Yes Take by Un omega travis, 05-10 mouth. ity of Vitamin D3, 19:44: [place] (VITAMIN 27 Medical D3) 125 mcg Branch (5,000 unit) tablet Green Tea Yes Take by [facility] ers [place] 05-10 mouth. ity of Extract 19:44: [place] (GREEN TEA) 27 Medical 250 mg Cap Branch Addis-3-DHA Yes Take by Un omega -EPA-Fish 05-10 mouth. ity of Oil (FISH 19:44: [place] OIL) 1,200 27 Medical (144-216) Branch mg Cap Cholecalcif 0 Yes Take by Un omega travis, 05-10 mouth. ity of Vitamin D3, 19:44: [place] (VITAMIN 27 Medical D3) 125 mcg Branch (5,000 unit) tablet Green Tea Yes Take by [facility] ers [place] 05-10 mouth. ity of Extract 19:44: [place] (GREEN TEA) 27 Medical 250 mg Cap Branch levothyroxi Yes 150ug Take 150 U nivers ne 150 mcg 3-29 mcg by ity of tablet 19:44: mouth [place] 26 every Medical morning. Branch levothyroxi 0 Yes 150ug Take 150 U nivers ne 150 mcg 3-29 mcg by ity of tablet 19:44: mouth [place] 26 every Medical morning. Branch levothyroxi Yes 150ug Take 150 U nivers ne 150 mcg 3-29 mcg by ity of tablet 19:44: mouth [place] 26 every Medical morning. Branch NORCO ORAL 2020- No None [facility] 05-10 Entered ity of 19:43: 00:00 [place] 28 :00 Medical Branch NORCO ORAL 2020-2020- No None [facility] 05-10 Entered ity of 19:43: 00:00 [place] 28 :00 Medical Branch NORCO 5-325 0 2021- No 1 po prn U nivers MG ORAL TAB 05-10 ity of 19:43: 00:00 [place] 25 :00 Medical Branch NORCO 5-325 202- No 1 po prn U nivers MG ORAL TAB 05-10 ity of 19:43: 00:00 [place] 25 :00 Medical Branch LEVOTHROID 202- No 1 po daily Univers 100 MCG 05-10 ity of ORAL TAB 19:43: 00:00 [place] 22 :00 Medical Branch LEVOTHROID 202- No 1 po daily Univers 100 MCG 05-10 ity of ORAL TAB 19:43: 00:00 [place] 22 :00 Medical Branch CLONAZEPAM 2020- No 1 po bid Un omega 1 MG ORAL 05-10 ity of TAB 19:43: 00:00 [place] 19 :00 Medical Branch EXCEDRIN 2020- No None Univers MIGRAINE 05-10 Entered ity of :43: 00:00 [place] MG ORAL TAB 19 :00 Medical Branch CLONAZEPAM 2020- No 1 po bid Un omega 1 MG ORAL 05-10 ity of TAB 19:43: 00:00 [place] 19 :00 Medical Branch EXCEDRIN 2020- No None Univers MIGRAINE 05-10 Entered ity of :43: 00:00 [place] MG ORAL TAB 19 :00 Medical Branch CITALOPRAM 2020- No 1 po daily Univers 40 MG ORAL 05-10 ity of TAB 19:43: 00:00 [place] 16 :00 Medical Branch CITALOPRAM 2020- No 1 po daily Univers 40 MG ORAL 05-10 ity of TAB 19:43: 00:00 [place] 16 :00 Medical Branch Addis-3-DHA Yes Take by Un omega -EPA-Fish 05-10 mouth. ity of Oil (FISH 14:44: [place] OIL) 1,200 27 Medical (144-216) Branch mg Cap Cholecalcif 2021-0 Yes Take by Un omega travis, 3-29 mouth. ity of Vitamin D3, 14:44: [place] (VITAMIN 27 Medical D3) 125 mcg Branch (5,000 unit) tablet Green Tea Yes Take by Univ ers [place] 3- mouth. ity of Extract 14:44: [place] (GREEN TEA) 27 Medical 250 mg Cap Branch NORCO 5-325 Yes 1 po prn Un omega MG ORAL TAB 5-28 ity of 19:34: [address] CLONAZEPAM Yes 1 po bid Uni vers 1 MG ORAL 5-28 ity of TAB 19:34: [address] LEVOTHROID Yes 1 po daily U nivers 100 MCG 5-28 ity of ORAL TAB 19:34: [address] CITALOPRAM Yes 1 po daily U nivers 40 MG ORAL 5-28 ity of TAB 19:34: [address] EXCEDRIN Yes None Univers MIGRAINE 6-19 Entered ity of :23: [place] MG ORAL TAB 11 Medical Branch NORCO ORAL Yes None Univers 6-19 Entered ity of 16:23: [address] Immunizations Ordered Filled Immunization Date Status Comments [facility] Immunization Name Name SARS-COV-2 COVID-19 2020-05-19 Completed Unive rsity of MODERNA VACCINE 00:00:00 [facility] SARS-COV-2 COVID-19 2020-04-21 Completed Unive rsity of MODERNA VACCINE 00:00:00 [facility] SARS-COV-2 COVID-19 2020-04-21 Completed Unive rsity of MODERNA VACCINE 00:00:00 [facility] SARS-COV-2 COVID-19 2020-04-21 Completed Unive rsity of MODERNA VACCINE 00:00:00 [facility] SARS-COV-2 COVID-19 2020-04-21 Completed Unive rsity of MODERNA VACCINE 00:00:00 [facility] SARS-COV-2 COVID-19 2020-04-21 Completed Unive rsity of MODERNA VACCINE 00:00:00 [facility] Vital Signs Vital Name Observation Time Observation Value Comments Source Systolic blood 2020-05-10 19:43:00 127 mm[Hg] Univer sity of pressure [facility] Diastolic blood 2020-05-10 19:43:00 83 mm[Hg] Unive rsity of pressure [facility] Heart rate 2020-05-10 19:42:00 105 /min [facility] Respiratory rate 2020-05-10 19:42:00 19 /min Univ ersity [facility] Body height 2020-05-10 19:42:00 170.2 cm [facility] Body weight 2020-05-10 19:42:00 59.421 kg [facility] BMI 2020-05-10 19:42:00 20.52 kg/m2 [facility] Procedures Procedure Date / Time Performed Performing Clinician Sourc e REFERRAL- 2020-01-29 06:01:00 Doctor Unassigned, No Univer [facility] REQUEST/RESPONSE Name [facility] Encounters Start End Encounter Admission Attending Care Care Encounter Source Date/Time Date/Time Type Type Clinicians Facility Department ID 2021-02-09 2021-02-09 Laboratory Only, Ang Db Test [facility] 1.2.8 [id number] Univers 10:00:00 10:22:19 Only FedeReebonz [facility] [id number] [facility] [id number] Shawn as LONNIE?BLEA [id number] [address] MEDICAL OFFICE BUILDING 2021-02-09 2021-02-09 Outpatient R [facility] [id number] Univers 10:00:00 10:00:[facility] [id number] 2021-02-09 2021-02-09 Outpatient R FEDE [facility] [id number] Univers 10:00:00 10:00:00 [facility] 2020-09-13 2020-09-13 Outpatient Suzie SANTAMARIA [facility] [id number] Univers 15:00:00 15:00:[id number] [facility] 2020-09-13 2020-09-13 Outpatient Suzie SANTAMARIA [facility] [id number] Univers 15:00:00 15:00:[address] [facility] 2020-05-192020-05-19 Outpatient R JORGE LUIS [facility] [id number] Univers 11:00:00 11:00:00 ARA ity of [facility] 2020-05-11 2020-05-11 Patient Valeriy [facility] [id number] Univers 00:00:00 00:00:00 Secure Msg Josephine Kelsey [id number] ity [id number] [phone] [place] dical [facility] [address] [facility] 2020-05-10 2020-05-10 Treasury Representative [place], Adc Lab Main [facility] 1.2.8 [id number] [id number] Univers 15:54:03 16:09:03 Visit Josephine Santamaria Kelsey [id number] ity [id number] [phone] [place] [facility] 2020-05-10 2020-05-10 Office Valeriy [facility] [id number] Univers 14:30:44 15:23:33 Visit Josephine Kelsey [id number] i [id number] [phone] [facility] 2020-05-10 2020-05-10 Outpatient R JULITALEAH [facility] [id number] Univers 14:30:00 14:30:00 JOSEPHINE ity [facility] 2020-05-10 2020-05-10 [id number] Univers 14:30:00 14:30:00 JOSEPHINE [id number] ity [facility] 2020-04-21 2020-04-21 Outpatient [facility] [id number] Univers 11:20:00 11:20:00 ity of [facility] 2020-01-29 2020-01-29 Orders Doctor [place] [id number] Univers 00:00:00 00:00:00 Only Unassigned, GOLD[place] [id number] ity of [place] [facility] [id number] Shawn as [phone] [address] 2019-01-02 2019-01-02 Outpatient R YELENA [facility] [id number] Univers 13:00:00 13:00:[address] [facility] 2009-07-09 2009-07-09 [facility] [id number] Univers 13:24:00 20:09:[address] [facility] Results This patient has no known results.
[2021-02-10] MEDS ORDERED: metroNIDAZOLE 500 MG TABLET ONE (18:34)
[2021-02-10] MEDS ORDERED: CIPROFLOXACIN 400mg IV 400 MG/200 ML BAG IV ONE (18:35)
[2021-02-10] MEDS ORDERED: NA CHLORIDE 0.9% 1,000 ML ONE ×2 (18:35→19:35)
[2021-02-10 18:49] LABS: Urine Blood 1+ (Negative); Urine Glucose Negative (Negative); Urine Protein Negative (Negative)
[2021-02-10 19:20] LABS: Absolute Lymphocytes (CBC) 2.4 K/uL (0.7-4.9); Hematocrit 42.6 % (36.0-45.0); Lymphocytes % 49.3 % (15.3-44.8); MPV 7.8 fL (7.6-11.3); Protime INR 0.98; RBC Red Blood Cell Count 5.09 M/uL (3.86-4.86)
[2021-02-10 19:39] LABS: BUN Blood Urea Nitrogen 10 mg/dL (7-18); Glucose Level 110 mg/dL (74-106); Potassium 3.7 mmol/L (3.5-5.1); Sodium Level 140 mmol/L (136-145)
[2021-02-10 20:01] LABS: ALT/SGPT 25 U/L (12-78); AST/SGOT 13 U/L (15-37); Albumin 3.8 g/dL (3.4-5.0); Alkaline Phosphatase 65 U/L (45-117); Bicarbonate 25 mmol/L (21-32); Bilirubin Total 0.3 mg/dL (0.2-1.0); Lipase 276 U/L (73-393); NT PRO-BNP 21 pg/mL (<125); Protein, Total 7.8 g/dL (6.4-8.2)
[2021-02-10 20:02] LABS: Bilirubin Direct < 0.1 mg/dL (0-0.2); Troponin (Emerg Dept Use Only) < 0.02 ng/mL (0.0-0.045)
--- NOTE | 2021-02-10 20:55 | RAD REPORT ---
EXAM DESCRIPTION: CT - Abdomen Pelvis W Contrast - 02/10/2021 8:30 pm CLINICAL HISTORY: Abdominal pain COMPARISON: February 05, 2021 TECHNIQUE: Computed axial tomography of the abdomen pelvis was obtained. 100 cc Isovue-300 was admin istered intravenously. Oral contrast was not requested which limits evaluation of bowel. All CT scans are performed using dose optimization technique as appropriate and may include automated exposure control or mA/KV adjustment according to patient size. FINDINGS: The liver, spleen, pancreas, adrenal and kidneys appear unremarkable. There is no evidence of diverticulitis. Postsurgical changes involve the small bowel. There is borderline dilatation of a loop of small bowel within the posterior pelvis to the right of midline. It contains 2 dense structures measuring 1.6 ce ntimeters. This is near the site of anastomotic suture. Tiny umbilical hernia IMPRESSION: Borderline dilatation of a loop of small bowel within the pelvis to the right of midline . It contains 2 dense structures presumably ingested contents. The borderline dilatation may be the r esult of a stricture or ileus. If the patient's symptoms do not improve then a followup CT scan with oral contrast opacifying the entire small bowel would be recommended.
--- NOTE | 2021-02-10 20:59 | RAD REPORT ---
EXAM DESCRIPTION: Munir Single View02/10/2021 6:56 pm CLINICAL HISTORY: Chest pain COMPARISON: February 05, 2021 FINDINGS: The lungs appear clear of acute infiltrate. The heart is normal size IMPRESSION: No acute abnormalities displayed
--- NOTE | 2021-02-10 21:34 | ER ---
Nurse's Notes [facility] Name: Mary Malagon Age: 45 yrs Sex: Female : 1975 Arrival Date: 02/10/2021 Time: 10:47 Bed 15 Private MD: Diagnosis: GI Bleed/ Gastrointestinal hemorrhage, unspecified-LOWER Presentation: 02/10 11:06 Chief complaint: Patient states: rectaul bleeding this AM and nausea. Coronavirus beebe screen: Vaccine status: Patient reports receiving the 2nd dose of the covid vaccine. Ebola Screen: Patient denies travel to an Ebola-affected area in the 21 days before illness onset. Initial Sepsis Screen: Does the patient meet any 2 criteria? No. Patient's initial sepsis screen is negative. Does the patient have a suspected source of infection? No. Patient's initial sepsis screen is negative. Risk Assessment: Do you want to hurt yourself or someone else? Patient reports no desire to harm self or others. Onset of symptoms was February 10, 2021. 11:06 Method Of Arrival: Ambulatory beebe 11:06 Acuity: FRAN 3 beebe Triage Assessment: 11:08 General: Appears in no apparent distress. Behavior is calm, cooperative. beebe CHECK TOTALER: 18:42 LMP N/A - Hysterectomy jg9 Historical: - Allergies: 11:08 No Known Allergies; beebe - Home Meds: 11:08 Imitrex 100 mg Oral tab [Active]; levothyroxine oral [Active]; nortriptyline 25 mg Oral beebe cap [Active]; - PMHx: 11:08 Hypothyroidism; Migraine; beebe - PSHx: 11:08 bowel resection; Total abdominal hysterectomy; beebe - Immunization history:: Adult Immunizations up to date. - Social history:: Smoking status: Patient denies any tobacco usage or history of. Screenin:42 Abuse screen: Denies threats or abuse. Denies injuries from another. Nutritional jg9 screening: No deficits noted. Tuberculosis screening: No symptoms or risk factors identified. Fall Risk None identified. Assessment: 18:25 General: Appears in no apparent distress. Behavior is calm. Pain: Denies pain. GI: jg9 Reports bloody stool. 18:25 GI: Abdomen is flat, non-distended. jg9 Vital Signs: 11:06 BP 112 / 89; Pulse 85; Resp 18; Temp 98.1; Pulse Ox 100% ; Weight 63.5 kg; Height 5 ft. beebe 7 in. (170.18 cm); 18:30 BP 131 / 92; Pulse 82; Resp 14; Pulse Ox 100% on R/A; jg9 21:00 BP 124 / 84; Pulse 77; Resp 17; Temp 98.2; Pulse Ox 98% on R/A; mr2 11:06 Body Mass Index 21.93 (63.50 kg, 170.18 cm) beebe ED Course: 10:47 Patient arrived in ED. as 11:08 Triage completed. beebe 11:08 Arm band placed on right wrist. beebe 18:13 Scott Esteban MD is Attending Physician. [facility] 18:15 Mary Berry is Primary Nurse. jg9 18:25 Patient has correct armband on for positive identification. Bed in low position. Call jg9 light in reach. Side rails up X 1. 18:30 Inserted saline lock: 22 gauge in left antecubital area, using aseptic technique. jg9 18:56 XRAY Chest (1 view) In Process Unspecified. EDMS 19:10 Macho Muñoz NP is PHCP. pm1 19:16 Urine --Ancillary (enter results) Sent. jg9 19:17 CBC with Diff Sent. jg9 19:17 LFT's Sent. jg9 19:17 Magnesium Sent. jg9 20:29 CT Abd/Pelvis - IV Contrast Only In Process Unspecified. EDMS 20:51 No provider procedures requiring assistance completed. mr2 22:00 IV discontinued. mr2 Administered Medications: 19:19 Drug: NS 0.9% 500 ml Route: IV; Rate: bolus; Site: right antecubital; jg9 19:19 Drug: Cipro (ciprofloxacin) 400 mg Volume: 200 ml; Route: IVPB; Infused Over: 60 mins; jg9 Site: right antecubital; 19:19 Drug: Flagyl (metroNIDAZOLE) 500 mg Route: PO; jg9 19:59 Drug: NS 0.9% 1000 ml Route: IV; Rate: 125 ml/hr; Site: left antecubital; jg9 Point of Care Testing: Urine : 18:30 hCG Reading: Negative; Control Reading: Positive; jg9 Outcome: 21:34 Discharge ordered by . pm1 22:00 Discharged to home ambulatory. mr2 22:00 Condition: stable 22:00 Discharge instructions given to patient, Instructed on discharge instructions, follow up and referral plans. medication usage, Prescriptions given X 4. 22:26 Patient left the ED. mr2 Signatures: Dispatcher [employer] EDWY Scott Esteban MD MD cha Martinez, Amelia as Marinas, Patrick, THOMAS DEPUTY CLERK OF SUPERIOR COURT pm1 Marty Monique RN RN mr2 Mary Berry jg9 Sara Newman RN RN beebe
--- NOTE | 2021-02-10 21:34 | EDPHYS ---
Physician Documentation [facility] Name: Mary Malagon Age: 45 yrs Sex: Female : 1975 Arrival Date: 02/10/2021 Time: 10:47 Bed 15 Private MD: ED Physician Scott Esteban HPI: 02/10 18:16 This 45 yrs old Female presents to ER via Ambulatory with complaints of keven Rectal Bleeding, Nausea. 18:16 The patient presents to the emergency department with bleeding from the rectum/anus, keven that is moderate. Onset: The symptoms/episode began/occurred 2 day(s) ago. Context: the patient has no known special context relating to the rectal area complaint(s). Modifying factors: The symptoms are alleviated by nothing, The symptoms are aggravated by nothing. Associate signs and symptoms: The patient has no apparent associated signs or symptoms. The patient has not experienced similar symptoms in the past. 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 - Social history:: Smoking status: Patient denies any tobacco usage or history of. ROS: 18:17 Constitutional: Negative for fever, chills, and weight loss, Eyes: Negative for injury, keven pain, redness, and discharge, ENT: Negative for injury, pain, and discharge, Neck: Negative for injury, pain, and swelling, Cardiovascular: Negative for chest pain, palpitations, and edema, Respiratory: Negative for shortness of breath, cough, wheezing, and pleuritic chest pain, Back: Negative for injury and pain, : Negative for injury, bleeding, discharge, and swelling, MS/Extremity: Negative for injury and deformity, Skin: Negative for injury, rash, and discoloration, Neuro: Negative for headache, weakness, numbness, tingling, and seizure, Psych: Negative for depression, anxiety, suicide ideation, homicidal ideation, and hallucinations, Allergy/Immunology: Negative for hives, rash, and allergies, Endocrine: Negative for neck swelling, polydipsia, polyuria, polyphagia, and marked weight changes, Hematologic/Lymphatic: Negative for swollen nodes, abnormal bleeding, and unusual bruising. 18:17 Abdomen/GI: Positive for rectal bleeding. Exam: 18:17 Constitutional: This is a well developed, well nourished patient who is awake, alert, keven and in no acute distress. Head/Face: Normocephalic, atraumatic. Eyes: Pupils equal round and reactive to light, extra-ocular motions intact. Lids and lashes normal. Conjunctiva and sclera are non-icteric and not injected. Cornea within normal limits. Periorbital areas with no swelling, redness, or edema. ENT: Nares patent. No nasal discharge, no septal abnormalities noted. Tympanic membranes are normal and external auditory canals are clear. Oropharynx with no redness, swelling, or masses, exudates, or evidence of obstruction, uvula midline. Mucous membranes moist. Neck: Trachea midline, no thyromegaly or masses palpated, and no cervical lymphadenopathy. Supple, full range of motion without nuchal rigidity, or vertebral point tenderness. No Meningismus. Chest/axilla: Normal chest wall appearance and motion. Nontender with no deformity. No lesions are appreciated. Cardiovascular: Regular rate and rhythm with a normal S1 and S2. No gallops, murmurs, or rubs. Normal PMI, no JVD. No pulse deficits. Respiratory: Lungs have equal breath sounds bilaterally, clear to auscultation and percussion. No rales, rhonchi or wheezes noted. No increased work of breathing, no retractions or nasal flaring. Abdomen/GI: Soft, non-tender, with normal bowel sounds. No distension or tympany. No guarding or rebound. No evidence of tenderness throughout. Back: No spinal tenderness. No costovertebral tenderness. Full range of motion. Skin: Warm, dry with normal turgor. Normal color with no rashes, no lesions, and no evidence of cellulitis. MS/ Extremity: Pulses equal, no cyanosis. Neurovascular intact. Full, normal range of motion. Neuro: Awake and alert, GCS 15, oriented to person, place, time, and situation. Cranial nerves II-XII grossly intact. Motor strength 5/5 in all extremities. Sensory grossly intact. Cerebellar exam normal. Normal gait. Psych: Awake, alert, with orientation to person, place and time. Behavior, mood, and affect are within normal limits. 18:17 Musculoskeletal/extremity: DVT Exam: No signs of deep vein thrombosis. no pain, no swelling, no tenderness, negative Homans' sign noted on exam, no appreciated bluish discoloration, no erythema, no increased warmth. 18:32 Abdomen/GI: Inspection: abdomen appears normal, Bowel sounds: normal, Palpation: keven abdomen is soft and non-tender, Rectal exam: is unremarkable, rectal tone normal, Stool: guaiac negative, hemorrhoid(s), are not appreciated, mass, is not appreciated, swelling, is not appreciated, tenderness, is not appreciated, fecal impaction, is not appreciated, the exam is chaperoned by a family member, Liver: no appreciated palpable abnormalities, Hernia: not appreciated. 18:56 ECG was reviewed by the Attending Physician. keven 21:35 Abdomen/GI: Inspection: abdomen appears normal, Palpation: abdomen is soft and pm1 non-tender, in all quadrants, Liver: no appreciated palpable abnormalities, Hernia: not appreciated. Vital Signs: 11:06 BP 112 / 89; Pulse 85; Resp 18; Temp 98.1; Pulse Ox 100% ; Weight 63.5 kg; Height 5 ft. beebe 7 in. (170.18 cm); 18:30 BP 131 / 92; Pulse 82; Resp 14; Pulse Ox 100% on R/A; jg9 21:00 BP 124 / 84; Pulse 77; Resp 17; Temp 98.2; Pulse Ox 98% on R/A; mr2 11:06 Body Mass Index 21.93 (63.50 kg, 170.18 cm) beebe MDM: 18:13 Patient medically screened. keven 18:18 Differential diagnosis: diverticulitis, hemorrhoids, hemorrhoids, fissure. Data [facility] reviewed: vital signs, nurses notes, lab test result(s), EKG, radiologic studies, plain films. Data interpreted: olive knocker: rate is 63 beats/min, rhythm is regular, Pulse oximetry: on room air is 100 %. Test interpretation: by ED physician or midlevel provider: ECG, plain radiologic studies. Counseling: I had a detailed discussion with the patient and/or guardian regarding: the historical points, exam findings, and any diagnostic results supporting the discharge/admit diagnosis, lab results, radiology results. 21:35 ED course: Discussed lab results and CT result with patient. Patient without any pm1 nausea, vomiting, diarrhea or abdominal pain. No bowel obstruction present. Discussed with patient to follow up with GI for colonoscopy and discussed findings with Dr. Duvall and agrees with plan of care. 02/10 18:16 Order name: CBC with Diff [facility] 02/10 18:16 Order name: LFT's [facility] 02/10 18:16 Order name: Magnesium [facility] 02/10 18:16 Order name: NT PRO-BNP; Complete Time: 20:18 [facility] 02/10 18:16 Order name: PT-INR; Complete Time: 19:31 [facility] 02/10 18:16 Order name: Troponin (emerg Dept Use Only); Complete Time: 20:18 [facility] 02/10 18:16 Order name: Lipase; Complete Time: 20:18 [facility] 02/10 18:16 Order name: Urine Culture [facility] 02/10 18:16 Order name: Type And Screen; Complete Time: 20:18 [facility] 02/10 18:17 Order name: Basic Metabolic Panel; Complete Time: 20:18 [facility] 02/10 18:17 Order name: CBC with Automated Diff; Complete Time: 19:31 [facility] 02/10 18:17 Order name: Liver (Hepatic) Function; Complete Time: 20:18 [facility] 02/10 18:17 Order name: Magnesium; Complete Time: 20:18 [facility] 02/10 18:16 Order name: XRAY Chest (1 view); Complete Time: 21:12 [facility] 02/10 18:16 Order name: EKG; Complete Time: 18:17 [facility] 02/10 18:16 Order name: Cardiac monitoring; Complete Time: 18:44 [facility] 02/10 18:16 Order name: EKG - Nurse/Tech; Complete Time: 19:17 [facility] 02/10 18:16 Order name: IV Saline Lock; Complete Time: 19:17 [facility] 02/10 18:16 Order name: Labs collected and sent; Complete Time: 19:17 [facility] 02/10 18:16 Order name: CT Abd/Pelvis - IV Contrast Only; Complete Time: 21:12 [facility] 02/10 18:49 Order name: Urine Dipstick-Ancillary; Complete Time: 19:01 [facility] 02/10 18:50 Order name: Urine --Ancillary (enter results) [facility] 02/10 18:50 Order name: Urine --Ancillary; Complete Time: 19:31 [facility] 02/10 18:16 Order name: O2 Sat Monitoring; Complete Time: 18:44 keven 02/10 18:16 Order name: Urine Dipstick-Ancillary (obtain specimen); Complete Time: 18:50 [facility] 02/10 18:50 Order name: Urine Test (obtain specimen); Complete Time: 18:50 3 EC:56 Rate is 74 beats/min. Rhythm is regular. QRS [place] is Normal. [place] interval is normal. QRS keven interval is normal. QT interval is normal. No Q waves. T waves are Normal. No ST changes noted. Clinical impression: Normal ECG and No evidence of ischemia. Interpreted by me. Reviewed by me. Administered Medications: 19:19 Drug: NS 0.9% 500 ml Route: IV; Rate: bolus; Site: right antecubital; jg9 19:19 Drug: Cipro (ciprofloxacin) 400 mg Volume: 200 ml; Route: IVPB; Infused Over: 60 mins; jg9 Site: right antecubital; 19:19 Drug: Flagyl (metroNIDAZOLE) 500 mg Route: PO; jg9 19:59 Drug: NS 0.9% 1000 ml Route: IV; Rate: 125 ml/hr; Site: left antecubital; jg9 Point of Care Testing: Urine : 18:30 hCG Reading: Negative; Control Reading: Positive; jg9 Disposition Summary: 02/10/21 21:34 Discharge Ordered Location: Home pm1 Problem: new pm1 Symptoms: have improved pm1 Condition: Stable pm1 Diagnosis - GI Bleed/ Gastrointestinal hemorrhage, unspecified - LOWER pm1 Followup: keven - With: Private Physician - When: 2 - 3 days - Reason: Recheck today's complaints, Continuance of care, Re-evaluation by your physician Discharge Instructions: - Discharge Summary Sheet keven - Gastrointestinal Bleeding keven - Rectal Bleeding keven - Rectal Bleeding, [id number] keven - Lower Gastrointestinal Bleeding keven Forms: - Medication Reconciliation Form pm1 - Thank You Letter pm1 - Antibiotic Education pm1 - Prescription Opioid Use pm1 Prescriptions: - Colace 100 mg Oral Tablet - take 1 tablet by ORAL route every 12 hours; 14 tablet; Refills: 0, Product keven Selection Permitted - Flagyl 500 mg Oral Tablet - take 1 tablet by ORAL route every 6 hours for 7 days; 58 tablet; Refills: 0, [facility] Product Selection Permitted - Pepcid 20 mg Oral Tablet - take 1 tablet by ORAL route every 12 hours for 10 days; 20 tablet; Refills: 0, [facility] Product Selection Permitted - Cipro 500 mg Oral Tablet - take 1 tablet by ORAL route every 12 hours for 7 days; 14 tablet; Refills: 0, [facility] Product Selection Permitted Addendum: 02/12/2021 09:06 Co-signature as Attending Physician, Scott Esteban MD I agree with the assessment and c beebe plan of care. Signatures: Dispatcher [employer] [facility] Scott Esteban MD MD cha Marinas, Patrick, AUTOMATION TEST ENGINEER AUTOMATION TEST ENGINEER 1 Paty Underwood 3 Mary Berry9 Sara Newman RN RN beebe Corrections: (The following items were deleted from the chart) 02/10 19:17 18:17 BASIC METABOLIC PANEL+C.LAB.BRZ ordered. [facility]
[2021-02-10 22:37] VITALS: BP 124/84; TEMP 98.2; O2SAT 98
== END 2021-02-10 22:26 | disposition home or self-care (01) ==
LOC: ER 10:43
DX: K62.5 Hemorrhage of anus and rectum (principal); E03.9 Hypothyroidism, unspecified
CPT/HCPCS: 93005; 87088; 85025; 87086; 80048; 36415; 86900; 83735; 86850; 81025; 85610; 86901; 80076; 87077; 87186; 81003; 84484; 83690; 83880; 74177; 71045; 96374; 99284; Q9967; J7030 ×2; J0744

== ENCOUNTER 2021-05-12 01:28 | Emergency (ER) | payer BC ==
--- OUTSIDE RECORDS SUMMARY | 2021-05-12 01:35 | XMS REPORT | Continuity of Care Document ---
:1975 Author Organization [facility] t Address [address] [place] [address] Care Team Providers Name Role Phone Jose Benz Primary Care Physician Sloane MANCIA M Attending Clinician WHITNEY Attending Clinician Unavailable Singer SHELBY Attending Clinician Whitney BOGGS Attending Clinician Jon BOGGS Attending Clinician Marleni MANCIA Attending Clinician Unavailable FEDE Attending Clinician Unavailable Only, Db Test Attending Clinician Unavailable Fede BOGGS Attending Clinician VALERIY Attending Clinician Unavailable Jose KANG Attending Clinician Unavailable Valeriy BOGGS Attending Clinician Pob, Lab Main Attending Clinician Unavailable Doctor Unassigned, Name Attending Clinician Unavailable ABILIO KIRK Attending Clinician Unavailable MIRCHARISSA Attending Clinician Unavailable WHITNEY Admitting Clinician Unavailable Whitney BOGGS Admitting Clinician JEANNINE Admitting Clinician Unavailable Payers Payer Name Policy Type Policy Number Effective Date Expiration Date S ource Problems Condition Condition Condition Status Onset Resolution Last Treating Co mments Source Name Details Category Date Date Treatment Clinician Date SBO (small SBO (small Disease Active U nivers bowel bowel 3-23 ity of obstruct[place] n[place] 00 [facility] Branch No known No known Disease Unive rs active active ity of problems problems [facility] Allergies, Adverse Reactions, Alerts Allergy Allergy Status Severity Reaction(s) Onset Inactive Treating Comm ents Source Name Type Date Date Clinician NO KNOWN Drug Active Univers ALLERGIE Class ity of S [facility] Social History Social Habit Start Date Stop Date Quantity Comments Source History of tobacco Cigarette Smoker University of use [facility] Alcohol Comment occasional Universit y [facility] Exposure to Not sure University of SARS-CoV-2 (event) [facility] Alcohol intake 2021-05-06 2021-05-06 Current drinker Unive rsity of 00:00:00 00:00:00 of alcohol [facility] (finding) [place] Tobacco use and 2021-05-05 2021-05-05 Former user Universi ty of exposure 00:00:00 00:00:00 [facility] Cigarettes smoked 2021-05-05 2021-05-05 Univers ity of current (pack per 00:00:00 00:00:00 ) - Reported Branch Cigarette 2021-05-05 2021-05-05 University of pack-years 00:00:00 00:00:00 [facility] Sex Ass[birth year] At [birth year] Universit y of 00:00:00 00:00:00 [facility] Smoking Status Start Date Stop Date Source Former smoker 2021-05-05 00:00:00 2021-05-05 00:00:00 Universi ty [facility] Current every day 2020-05-10 00:00:00 [facility] Medications Ordered Filled Start Stop Current Ordering Indication Dosage Frequency Signature Comments Components Source Medication Medication Date Date Medication? Clinician (SIG) Name Name [place]-3-DHA Yes Take by Un omega -EPA-Fish 3-28 mouth. ity of Oil (FISH 17:13: [place] OIL) 1,200 34 Medical (144-216) Branch mg Cap Cholecalcif 2021-0 Yes Take by Un omega travis, 3-28 mouth. ity of Vitamin D3, 17:13: [place] (VITAMIN 34 Medical D3) 125 mcg Branch (5,000 unit) tablet busPIRone 2021-0 Yes 10mg Take 10 mg Un omega 10 mg 3-28 by mouth 2 ity of tablet 17:13: (two) [place] 34 times Medical daily. Branch SUMAtriptan 2-0 Yes 100mg Take 100 U nivers 50 mg 3-28 mg by ity of tablet 17:13: mouth [place] 34 every Medical evening as Branch needed for Migraine. nortriptyli 2021-0 Yes 50mg Take 50 mg Univers ne 50 mg 3-28 by mouth ity of capsule 17:13: at [place] [address] bedtime. Medical Branch albuterol 2021-0 Yes 1{puff} Inhale 1 U nivers sulfate 3-28 Puff 3 ity of (PROVENTIL 17:13: (three[place] HFA INHALE[place] 34 times Medical daily as Branch needed. [place]-3-DHA 2021-0 Yes Take by Un omega -EPA-Fish 3-28 mouth. ity of Oil (FISH 17:13: [place] OIL) 1,200 34 Medical (144-216) Branch mg Cap Cholecalcif 2021-0 Yes Take by Un omega travis, 3-28 mouth. ity of Vitamin D3, 17:13: [place] (VITAMIN 34 Medical D3) 125 mcg Branch (5,000 unit) tablet busPIRone 2021-0 Yes 10mg Take 10 mg Un omega 10 mg 3-28 by mouth 2 ity of tablet 17:13: (two) [place] 34 times Medical daily. Branch SUMAtriptan 2-0 Yes 100mg Take 100 U nivers 50 mg 3-28 mg by ity of tablet 17:13: mouth [place] [id number] every Medical evening as Branch needed for Migraine. nortriptyli 2022-0 Yes 50mg Take 50 mg Univers ne 50 mg 3-28 by mouth ity of capsule 17:13: at [place] [address] bedtime. Medical Branch albuterol 2-0 Yes 1{puff} Inhale 1 U nivers sulfate 3-28 Puff 3 ity of (PROVENTIL 17:13: (three[place] HFA INHALE[place] 34 times Medical daily as Branch needed. methocarbam 2021-0 Yes 500mg 500 mg, Un omega oL 3-28 Oral, QID, ity of (ROBAXIN) 17:00: First dose [place] tablet 500 00 on Mon Medical mg 05/09/21 at Branch 1200, Until Discontinu ed, Routine pantoprazol 2021-0 Yes 40mg 40 mg, Univ ers e 3-28 Oral, ity of (PROTONIX) 14:00: DAILY, [place] EC tablet 00 First dose Medi agapito 40 mg on Mon Branch 05/09/21 at 0900, Until Discontinu ed, Routine HYDROcodone 2021-0 Yes 1{tbl} 1 tablet, Univers -acetaminop 3-28 Oral, ity of hen (NORCO 13:05: Q6HPRN, [place] 5) 5-325 mg 51 Starting Medi agapito tablet 1 on Mon Branch tablet 05/09/21 at 0805, Until Discontinu ed, Routine, Pain (scale 7-10) ibuprofen 2021-0 Yes 600mg 600 mg, Univ ers (IBU) 3- Oral, ity of tablet 600 13:05: Q6HPRN, [place] mg 25 Starting Medical on Mon Branch 05/09/21 at 0805, Until Discontinu ed, Routine, Pain (scale 4-6) acetaminoph 2021-0 Yes 650mg 650 mg, Un omega en 3-28 Oral, ity of (TYLENOL) 13:05: Q6HPRN, [place] tablet 650 16 Starting Medic al mg on Mon Branch 05/09/21 at 0805, Until Discontinu ed, Routine, Pain (scale 1-3) HYDROcodone 2021-0 Yes [id number] 1{tbl} Take 1 Un omega -acetaminop 3-28 tablet by ity of hen 5-325 00:00: mouth [place] mg tablet 00 every 6 Medical (six) Branch hours as needed for Pain (scale 7-10). Indication s: acute pain methocarbam 2021-0 Yes [id number] 500mg Take 1 Univers oL 500 mg 3-28 tablet by ity o f tablet 00:00: mouth [place] 00 every 8 Medical (eight) Branch hours as needed (spasms). ibuprofen 2021-0 Yes [id number] 600mg Take 1 Univers 600 mg 3-28 tablet by ity of tablet 00:00: mouth [place] 00 every 6 Medical (six) Branch hours as needed for Pain (scale 4-6). HYDROcodone 0 Yes [id number] 1{tbl} Take 1 Un omega -acetaminop 3-28 tablet by ity of hen 5-325 00:00: mouth [place] mg tablet 00 every 6 Medical (six) Branch hours as needed for Pain (scale 7-10). Indication s: acute pain methocarbam 0 Yes [id number] 500mg Take 1 Univers oL 500 mg 3-28 tablet by ity o f tablet 00:00: mouth [place] 00 every 8 Medical (eight) Branch hours as needed (spasms). ibuprofen Yes [id number] 600mg Take 1 Univers 600 mg 3-28 tablet by ity of tablet 00:00: mouth [place] 00 every 6 Medical (six) Branch hours as needed for Pain (scale 4-6). acetaminoph 2021- No 1000mg 1,000 mg, Univers en ADULT 05-08 IV ity of (OFIRMEV) 16:15: 09:13 Infusion, [place] injection 00 :00 Administer Medi agapito 1,000 mg over 15 Branch Minutes, Q8H ABX, 3 doses, First dose (after last reorder) on [place] 05/08/21 at 1115, Last dose on [facility] 05/09/21 at 0315, Routine
Indicatio n: Perioperat shayy Patient morpHINE Yes 2mg 2 mg, Slow Uni vers injection 2 05-08 IV Push, ity of mg 15:11: [place], [place] 24 Starting Medical on [place] Branch 05/08/21 at 1011, Until Discontinu ed, Routine, Pain (scale 7-10) bisacodyL 2021- No 10mg 10 mg, Unive rs (DULCOLAX) 05-07 Rectal, ity o f suppository 20:45: 21:17 ONCE, 1 [place] 10 mg 00 :00 dose, On Medical [facility] Branch 05/07/21 at 1545, Routine D5W 0.45% 2021- No IV Univers NaCl 05-07 Infusion, ity of (1/2NS) 1 L 20:45: 21:17 at 125 [place] as + KCL 20 00 :00 mL/hr, Medical mEq ONCE, 1 Branch dose, On 05/07/21 at 1545, Routine magnesium 2021- No 2g 2 g, IV Univ ers sulfate in 05-07 Piggyback, it y of water 2 14:15: 16:03 Administer [place] gram/50 mL 00 :00 over 60 Medica l (4 %) Minutes, Branch infusion 2 ONCE, 1 g dose, On 05/07/21 at 0915, Routine potassium 2021- No 15mmol 15 mmol, U nivers phosphate 05-07 IV ity of 15 mmol in 12:15: 17:57 Piggyback, [place] NaCl 0.9% 00 :00 ONCE, 1 Medical (NS) 150 mL dose, On ch piggyback 05/07/21 at 0730, 150 mL acetaminoph 2021- Yes 1000mg 1,000 mg, Univers en ADULT 05-06 IV ity of (OFIRMEV) 23:00: 22:59 Infusion, [place] injection 00 :00 Administer Medi agapito 1,000 mg over 15 Branch Minutes, Q8H ABX, 3 doses, First dose (after last reorder) on Sun05/06/21 at 1800, Last dose on Sun05/07/21 at 1000, Routine
Indicatio n: Perioperat shayy Patient acetaminoph 2021- No 1000mg 1,000 mg, Univers en ADULT 05-06 IV ity of (OFIRMEV) 23:00: 14:23 Infusion, [place] injection 00 :00 Administer Medi agapito 1,000 mg over 15 Branch Minutes, Q8H ABX, 3 doses, First dose (after last reorder) on Sun05/06/21 at 1800, Last dose on Sun05/07/21 at 1000, Routine
Indicatio n: Perioperat shayy Patient magnesium 2021- No 2g 2 g, IV Univ ers sulfate in 05-06 Piggyback, it y of water 2 13:15: 15:21 Administer [place] gram/50 mL 00 :00 over 60 Medica l (4 %) Minutes, Branch infusion 2 ONCE, 1 g dose, On Sun05/06/21 at 0815, Routine methocarbam Yes 1000mg 1,000 mg, Univers oL 05-06 Intravenou ity of (ROBAXIN) 03:00: s, Q8H, [place] injection 00 First dose Medi agapito 1,000 mg on Radha Branch 05/05/21 at 2200, Until Discontinu ed, Routine methocarbam 2021- No 1000mg 1,000 mg, Univers oL 05-06 Intravenou ity of (ROBAXIN) 03:00: 13:13 s, Q8H, [place] injection 00 :35 First dose Medi agapito 1,000 mg on [place] Branch 05/05/21 at 2200, Until Discontinu ed, Routine acetaminoph 2021- No 1000mg 1,000 mg, Univers en ADULT 05-06 IV ity of (OFIRMEV) 00:00: 14:35 Infusion, [place] injection 00 :00 Administer Medi agapito 1,000 mg over 15 Branch Minutes, Q8H ABX, 3 doses, First dose on Sun05/05/21 at 1900, Last dose on Sun05/06/21 at 1100, Routine
Indicatio n: Perioperat shayy Patient ketorolac 2021- No 15mg 15 mg, Unive rs (TORADOL) 05-05 Intramuscu ity of injection 23:00: 22:59 [place], Q6H, [place] 15 mg 00 :00 4 doses, Medical First dose Branch on Sun05/05/21 at 1800, Last dose on Sun05/06/21 at 1200, Routine lactated Yes 1000mL at 125 Unive rs ringers IV 3-24 mL/hr, ity of infusion 22:15: 1,000 mL, [place] 1,000 mL 00 IV Medical Infusion, Branch CONTINUOUS , Starting on Sun05/05/21 at 1715, Until Discontinu ed, Routine morpHINE 30 2021-0 Yes Univer s mg/30 mL - ity of (fixed 22:15: [place] dose) [employer] 00 Medical injection Branch morpHINE 30 2021- No Unive rs mg/30 mL 05-05 ity of (fixed 22:15: 15:12 [place] dose) [employer]SC[employer]PER 00 :13 Medical injection Branch lactated 2021- No 1000mL at 125 Univ ers ringers IV 05-05 mL/hr, ity of infusion 22:15: 19:35 1,000 mL, [place] 1,000 mL 00 :40 IV Medical Infusion, Branch CONTINUOUS , Starting on Radha 05/05/21 at 1715, Until 05/07/21 at 1435, Routine naloxone Yes .1mg 0.1 mg, Univer s (NARCAN) 05-05 Slow IV ity of injection 21:10: Push, [place] 0.1 mg 49 SEE-INSTRU Medical CTIONS, Branch Starting on [place] 05/05/21 at 1610, Until Discontinu ed, Routine naloxone Yes .1mg 0.1 mg, Univer s (NARCAN) 05-05 Slow IV ity of injection 21:10: Push, [place] 0.1 mg 49 SEE-INSTRU Medical CTIONS, Branch Starting on [place] 05/05/21 at 1610, Until Discontinu ed, Routine proMETHazin Yes 12.5mg 12.5 mg, Univers e 05-05 IV ity of (PHENERGAN) 21:10: Piggyback, [place] 12.5 mg in 27 Q4HPRN, Medica l NaCl 0.9% Starting Branch (NS) 50 mL on Radha IV 05/05/21 at piggyback 1610, Until Discontinu ed, Routine, N/V unresponsi ve to Ondansetro n proMETHazin 2021- No 12.5mg 12.5 mg, Univers e 05-05 IV ity of (PHENERGAN) 21:10: 19:35 Piggyback, [place] 12.5 mg in 27 :40 Q4HPRN, Medica l NaCl 0.9% Starting Branch (NS) 50 mL on Radha IV 05/05/21 at piggyback 1610, Until 05/07/21 at 1435, Routine, N/V unresponsi ve to Ondansetro n bupivacaine 2021- No PRN, Unive rs liposome 3-24 03-24 Starting ity of (PF) 18:25: 22:50 on Radha [place] (EXPAREL 00 :55 05/05/21 at Medic al (PF)) 1.3 % 1325, Branch (13.3 Intra-op mg/mL) 266 mg, NaCl 0.9% (NS) 100 mL busPIRone 0 Yes 10mg Take 10 mg Un omega 10 mg 3-24 by mouth 2 ity of tablet 17:50: (two) [place] 55 times Medical daily. Branch SUMAtriptan 0 Yes 100mg Take 100 U nivers 50 mg 3-24 mg by ity of tablet 17:50: mouth [place] 55 every Medical evening as Branch needed for Migraine. nortriptyli 0 Yes 50mg Take 50 mg Univers ne 50 mg 3-24 by mouth ity of capsule 17:50: at [place] 55 bedtime. Medical Branch albuterol 0 Yes 1{puff} Inhale 1 U nivers sulfate 3-24 Puff 3 ity of (PROVENTIL 17:50: (three) [place] HFA INHALE) 55 times Medical daily as Branch needed. enoxaparin 0 Yes 30mg 30 mg, Unive rs (LOVENOX) 3-24 Subcutaneo ity of injection 14:00: [place], DAILY, [place] 30 mg 00 First dose Medical on [facility] 05/05/21 at 0900, Until Discontinu ed, Routine enoxaparin 0 Yes 30mg 30 mg, Unive rs (LOVENOX) 3-24 Subcutaneo ity of injection 14:00: us, DAILY, [place] 30 mg 00 First dose Medical on [facility] 05/05/21 at 0900, Until Discontinu ed, Routine ondansetron 0 2021- No 4mg 4 mg, Slow Univers (ZOFRAN 3-24 03-24 IV Push, ity of (PF)) 14:00: 13:06 ONCE, On [place] injection 4 00 :00 [place] Medical mg 05/05/21 at Branch 0900, For 1 dose
Do ses of ondansetro n 16 mg and above need to be administer ed via IV piggyback. For Dose >=24mg ECG monitoring is advisable.
FENTanyl PF 2021- No 50ug 50 mcg, Un omega (SUBLIMAZE 05-05 Slow IV ity o f (PF)) 13:45: 12:52 Push, [place] injection 00 :00 ONCE, 1 Medical 50 mcg dose, On Branch [place] 05/05/21 at 0845, Routine piperacilli Yes 3.375g 3.375 g, Univers n-tazobacta 05-05 IV ity of m (ZOSYN) 13:40: [place]back, [place] 3.375 g in 00 Q8H ABX, Medic al NaCl 0.9% First dose Bran ch (NS) 50 mL (after MINI-BAG last reorder) on [place] 05/05/21 at 0845, Until Discontinu ed, Administer over 4 Hours, 50 mL
Reas on for Anti-Infec tive: Empiric Therapy for Suspected Infection< br>Empiric Therapy Site: Abdominal< br>Duratio n of therapy: 72 hours piperacilli 2021- No 3.375g 3.375 g, Univers n-tazobacta 05-05 IV ity of m (ZOSYN) 13:40: 13:13 [place]back, [place] 3.375 g in 00 :53 Q8H ABX, Medic al NaCl 0.9% First dose Bran ch (NS) 50 mL (after MINI-BAG last reorder) on [place] 05/05/21 at 0845, Until Discontinu ed, Administer over 4 Hours, 50 mL
Reas on for Anti-Infec tive: Empiric Therapy for Suspected Infection< br>Empiric Therapy Site: Abdominal< br>Duratio n of therapy: 72 hours proMETHazin 2021- No 12.5mg 12.5 mg, Univers e 05-05 IV ity of (PHENERGAN) 13:14: 14:47 [place], [place] 12.5 mg in 00 :00 ONCE NOW, Medi agapito NaCl 0.9% 1 dose, On Bran ch (NS) 50 mL Radha IV 05/05/21 at piggyback 0815, Routine lactated 2021- No 1000mL at 999 Univ ers ringers IV 3-24 03-24 mL/hr, ity of infusion 12:49: 13:06 1,000 mL, [place] 1,000 mL 00 :00 Intravenou Medic al s, ONCE, 1 Branch dose, On [place] 05/05/21 at 0800, Routine phenoL 2021-0 Yes 1{spray 1 [place], Univ ers (SORE 3-24 } Oral, PRN, ity of THROAT 12:47: Starting [place] (PHENOL)) 49 on Radha Medical 1.4 % spray 05/05/21 at Br anch bottle 1 0747, [place] Until Discontinu ed, Routine, Sore throat phenoL 2021-0 Yes 1{spray 1 [place], Univ ers (SORE 3-24 } Oral, PRN, ity of THROAT 12:47: Starting [place] (PHENOL)) 49 on Radha Medical 1.4 % spray 05/05/21 at Br anch bottle 1 0747, [place] Until Discontinu ed, Routine, Sore throat levothyroxi Yes 50ug 50 mcg, Uni vers ne 05-05 Slow IV ity of (SYNTHROID) 11:00: Push, [place] injection 00 QAM-0600, Medic al 50 mcg First dose Branch on [place] 05/05/21 at 0600, Until Discontinu ed, Routine levothyroxi Yes 50ug 50 mcg, Uni vers ne 05-05 Slow IV ity of (SYNTHROID) 11:00: Push, [place] injection 00 QAM-0600, Medic al 50 mcg First dose Branch on [place] 05/05/21 at 0600, Until Discontinu ed, Routine pantoprazol Yes 40mg 40 mg, Univ ers e 05-05 Slow IV ity of (PROTONIX) 10:15: Push, [place] injection 00 Q24H, Medical 40 mg First dose Branch on [place] 05/05/21 at 0515, Until Discontinu ed pantoprazol 2021- No 40mg 40 mg, Uni vers e 05-05 Slow IV ity of (PROTONIX) 10:15: 13:13 Push, [place] injection 00 :35 Q24H, Medical 40 mg First dose Branch on [place] 05/05/21 at 0515, Until Discontinu ed NaCl 0.9% 2021- No 1000mL at 999 Uni vers (NS) bolus 05-05-24 mL/hr, ity of infusion 10:15: 10:10 1,000 mL, [place] 1,000 mL 00 :00 IV Medical Infusion, Branch ONCE, 1 dose, On [place] 05/05/21 at 0515, STAT NaCl 0.9% 2022-0 2022- No 1000mL at 100 Uni vers (NS) IV 05-05 03-24 mL/hr, IV ity of infusion 10:15: 21:12 Infusion, [place] 1,000 mL 00 :31 CONTINUOUS Medic al , Starting Branch on [place] 05/05/21 at 0515, Until [place] 05/05/21 at 1612, Routine ondansetron 2021-0 Yes 4mg 4 mg, Slow Univers (ZOFRAN 3-24 IV Push, ity of (PF)) 09:07: Q6HPRN, [place] injection 4 43 Starting Medi agapito mg on [facility] Branch 05/05/21 at 0407, Until Discontinu ed, Routine, Nausea and Vomiting (N/V) ondansetron 2-0 Yes 4mg 4 mg, Slow Univers (ZOFRAN 3-24 IV Push, ity of (PF)) 09:07: Q6HPRN, [place] injection 4 43 Starting Medi agapito mg on [facility] Branch 05/05/21 at 0407, Until Discontinu ed, Routine, Nausea and Vomiting (N/V) LORazepam 2021-0 Yes .5mg 0.5 mg, Unive rs (ATIVAN) 3-24 Slow IV ity of injection 09:06: Push, [place] 0.5 mg 17 BIDPRN, Medical Starting Branch on [place] 05/05/21 at 0406, Until Discontinu ed, Routine, Anxiety, Agitation LORazepam 2-0 Yes .5mg 0.5 mg, Unive rs (ATIVAN) 3-24 Slow IV ity of injection 09:06: Push, [place] 0.5 mg 17 BIDPRN, Medical Starting Branch on [place] 05/05/21 at 0406, Until Discontinu ed, Routine, Anxiety, Agitation morpHINE 2022-0 202- No 4mg 4 mg, Slow Un omega injection 4 05-05 03-24 IV Push, ity of mg 05:38: 21:12 Q4HPRN, [place] 36 :31 Starting Medical on [place]ha Branch 05/05/21 at 0038, Until [place] 05/05/21 at 1612, Routine, Pain (scale 7-10) morpHINE 2021-0 2021- No 4mg 4 mg, Slow Un omega injection 4 05-05 IV Push, ity of mg 04:00: 03:02 ONCE, 1 [place] 00 :00 dose, On Medical [facility] Branch 05/04/21 at 2300, STAT LORazepam 2021-2021- No 1mg 1 mg, Slow U nivers (ATIVAN) 05-05 IV Push, ity of injection 1 04:00: 03:03 ONCE, 1 [place] mg 00 :00 dose, On [facility] Branch 05/04/21 at 2300, STAT morpHINE 2021-2021- No 4mg 4 mg, Slow Un omega injection 4 05-05 IV Push, ity of mg 03:15: 02:24 ONCE, 1 [place] 00 :00 dose, On [facility] Branch 05/04/21 at 2215, Routine piperacilli 2021- No 3.375g 3.375 g, Univers n-tazobacta 05-05 IV ity of m (ZOSYN) 02:45: 03:02 [place], [place] 3.375 g in 00 :00 ONCE, 1 Medica l NaCl 0.9% dose, On Branch (NS) 50 mL Wed MINI-BAG 05/04/21 at 2145, Administer over 30 Minutes, 50 mL
R patrice for Anti-Infec tive: Empiric Therapy for Suspected Infection< br>Empiric Therapy Site: Abdominal< br>Duratio n of therapy: 72 hours ondansetron 2021- No 4mg 4 mg, Slow Univers (ZOFRAN 05-05 IV Push, ity of (PF)) 02:15: 01:24 ONCE, 1 [place] injection 4 00 :00 dose, On Medi agapito mg [facility] Branch 05/04/21 at 2115, Routine morpHINE 2021-0 2021- No 4mg 4 mg, Slow Un omega injection 4 05-05 IV Push, ity of mg 02:15: 01:24 ONCE, 1 [place] 00 :00 dose, On [facility] Branch 05/04/21 at 2115, Routine iopamidol 2021- No [id number] 120mL 120 mL, Univers (ISOVUE 05-05 Intravenou ity o f 370-500 mL) 02:10: 02:20 s, ONCE, 1 [place] injection 00 :00 dose, On Medica l 120 mL Wed Branch 05/04/21 at 2130, Routine NaCl 0.9% 2021- No 1000mL at 999 Uni vers (NS) bolus 05-05 mL/hr, ity of infusion 01:15: 03:59 1,000 mL, [place] 1,000 mL 00 :00 IV Medical Infusion, Branch ONCE, 1 dose, On 05/04/21 at 2015, STAT Green Tea 2021- No Take by Uni vers [place] 05-05 mouth. ity of Extract 00:09: 00:00 [place] (GREEN TEA) 31 :00 Medical 250 mg Cap Branch Green Tea 2021- No Take by Uni vers [place] 05-05 mouth. ity of Extract 00:09: 00:00 [place] (GREEN TEA) 31 :00 Medical 250 mg Cap Branch [place]-3-DHA Yes Take by Un omega -EPA-Fish 05-05 mouth. ity of Oil (FISH 00:07: [place] OIL) 1,200 30 Medical (144-216) Branch mg Cap Cholecalcif Yes Take by Un omega travis, 05-05 mouth. ity of Vitamin D3, 00:07: (VITAMIN 30 Medical D3) 125 mcg Branch (5,000 unit) tablet levothyroxi 2020- No 150ug Take 150 Univers ne 150 mcg 3-30 03-30 mcg by ity of tablet 17:25: 00:00 mouth [place] 18 :00 every Medical morning. Branch levothyroxi 2020-0 Yes [id number] 125ug Take 1 Univers ne 125 mcg 3-30 tablet by ity of tablet 00:00: mouth [place] 00 every Medical morning. Branch levothyroxi 2020-0 Yes [id number] 125ug Take 1 Univers ne 125 mcg 3-30 tablet by ity of tablet 00:00: mouth [place] 00 every Medical morning. Branch levothyroxi 2020-0 Yes [id number] 125ug Take 1 Univers ne 125 mcg 3-30 tablet by ity of tablet 00:00: mouth 00 every Medical morning. Branch levothyroxi 2021-0 Yes [id number] 125ug Take 1 Univers ne 125 mcg 3-30 tablet by ity of tablet 00:00: mouth 00 every Medical morning. Branch levothyroxi 2021-0 Yes [id number] 125ug Take 1 Univers ne 125 mcg 3-30 tablet by ity of tablet 00:00: mouth [place] 00 every Medical morning. Branch levothyroxi 202-0 Yes [id number] 125ug Take 1 Univers ne 125 mcg 3-30 tablet by ity of tablet 00:00: mouth 00 every Medical morning. Branch [place]-3-DHA 2020-0 Yes Take by Un omega -EPA-Fish - mouth. ity of Oil (FISH 19:44: [place] OIL) 1,200 27 Medical (144-216) Branch mg Cap Cholecalcif 202-0 Yes Take by Un omega travis, 3- mouth. ity of Vitamin D3, 19:44: [place] (VITAMIN 27 Medical D3) 125 mcg Branch (5,000 unit) tablet Green Tea 2020-0 Yes Take by [facility] ers [place] - mouth. ity of Extract 19:44: [place] (GREEN TEA) 27 Medical 250 mg Cap Branch [place]-3-DHA 2020-0 Yes Take by Un omega -EPA-Fish - mouth. ity of Oil (FISH 19:44: [place] OIL) 1,200 27 Medical (144-216) Branch mg Cap Cholecalcif 2020-0 Yes Take by Un omega travis, 3- mouth. ity of Vitamin D3, 19:44: [place] (VITAMIN 27 Medical D3) 125 mcg Branch (5,000 unit) tablet Green Tea 2020-0 Yes Take by [facility] ers [place] - mouth. ity of Extract 19:44: [place] (GREEN TEA) 27 Medical 250 mg Cap Branch [place]-3-DHA 2020-0 Yes Take by Un omega -EPA-Fish - mouth. ity of Oil (FISH 19:44: [place] OIL) 1,200 27 Medical (144-216) Branch mg Cap Cholecalcif 202-0 Yes Take by Un omega travis, 3- mouth. ity of Vitamin D3, 19:44: [place] (VITAMIN 27 Medical D3) 125 mcg Branch (5,000 unit) tablet Green Tea Yes Take by [facility] ers [place] 05-10 mouth. ity of Extract 19:44: [place] (GREEN TEA) 27 Medical 250 mg Cap Branch [place]-3-DHA Yes Take by Un omega -EPA-Fish 05-10 mouth. ity of Oil (FISH 19:44: [place] OIL) 1,200 27 Medical (144-216) Branch mg Cap Cholecalcif Yes Take by Un omega travis, 05-10 mouth. ity of Vitamin D3, 19:44: [place] (VITAMIN 27 Medical D3) 125 mcg Branch (5,000 unit) tablet Green Tea Yes Take by [facility] ers [place] 05-10 mouth. ity of Extract 19:44: [place] (GREEN TEA) 27 Medical 250 mg Cap [...] morning. Branch NORCO ORAL 2020- No None [facility] 05-10 Entered ity of 19:43: 00:00 [place] 28 :00 Medical Branch NORCO ORAL 2020- No None [facility] 05-10 Entered ity of 19:43: 00:00 [place] 28 :00 Medical Branch NORCO 5-325 2020- No 1 po prn U nivers MG ORAL TAB 05-10 ity of 19:43: 00:00 [place] 25 :00 Medical Branch NORCO 5-325 2020- No 1 po prn U nivers MG ORAL TAB 05-10 ity of 19:43: 00:00 [place] 25 :00 Medical Branch LEVOTHROID 2020- No 1 po daily Univers 100 MCG 05-10 ity of ORAL TAB 19:43: 00:00 [place] 22 :00 Medical Branch LEVOTHROID 2020- No 1 po daily Univers 100 MCG 05-10 ity of ORAL TAB 19:43: 00:00 [place] 22 :00 Medical Branch EXCEDRIN 202- No None Univers MIGRAINE 05-10 Entered ity [...] 19:43: 00:00 [place] 19 :00 Medical Branch CITALOPRAM 2020- No 1 po daily Univers 40 MG ORAL 05-10 ity of TAB 19:43: 00:00 [place] 16 :00 Medical Branch CITALOPRAM 2020- No 1 po daily Univers 40 MG ORAL 05-10 ity of TAB 19:43: 00:00 [place] 16 :00 Medical Branch [place]-3-DHA Yes Take by Un omega -EPA-Fish 05-10 mouth. ity of Oil (FISH 14:44: [place] OIL) 1,200 27 Medical (144-216) Branch mg Cap Cholecalcif Yes Take by Un omega travis, 05-10 mouth. ity of Vitamin D3, 14:44: [place] (VITAMIN 27 Medical D3) 125 mcg Branch (5,000 unit) tablet Green Tea Yes Take by Univ ers [place] 05-10 mouth. ity of Extract 14:44: [place] (GREEN TEA) 27 Medical 250 mg Cap Branch [place]-3-DHA Yes Take by Un omega -EPA-Fish 05-10 mouth. ity of Oil (FISH 14:44: [place] OIL) 1,200 27 Medical (144-216) Branch mg Cap Cholecalcif Yes Take by Un omega travis, 3-29 mouth. ity of Vitamin D3, 14:44: [place] (VITAMIN 27 Medical D3) 125 mcg Branch (5,000 unit) tablet Green Tea Yes Take by Univ ers [place] 3-29 mouth. ity of Extract 14:44: [place] (GREEN TEA) 27 Medical 250 mg Cap Branch NORCO 5-325 Yes 1 po prn Un omega MG ORAL TAB 5-28 ity of 19:34: [address] CLONAZEPAM Yes 1 po bid Uni vers 1 MG ORAL 5-28 ity of TAB 19:34: [address] LEVOTHROID Yes 1 po daily U nivers 100 MCG 5-28 ity of ORAL TAB 19:34: [address] CITALOPRAM Yes 1 po daily U nivers 40 MG ORAL 5-28 ity of TAB 19:34: [address] EXCEDRIN Yes None Univers MIGRAINE 6-19 Entered ity of :23: [place] MG ORAL TAB 11 [facility] Branch NORCO ORAL Yes None Univers 6-19 Entered ity of 16:23: [address] Immunizations Ordered Filled Immunization Date Status Comments [facility] e Immunization Name Name SARS-COV-2 COVID-19 2020-05-19 Completed Unive rsity of MODERNA VACCINE 00:00:00 [facility] [place] [facility] SARS-COV-2 COVID-19 2020-05-19 Completed Unive rsity of MODERNA VACCINE 00:00:00 [facility] [place] [facility] SARS-COV-2 COVID-19 2020-05-19 Completed Unive rsity of MODERNA VACCINE 00:00:00 [facility] [place] [facility] SARS-COV-2 COVID-19 2020-05-19 Completed Unive rsity of MODERNA VACCINE 00:00:00 [facility] [place] [facility] SARS-COV-2 COVID-19 2020-05-19 Completed Unive rsity of MODERNA VACCINE 00:00:00 [facility] [place] [facility] SARS-COV-2 COVID-19 2020-04-21 Completed Unive rsity of MODERNA VACCINE 00:00:00 [place] Med ical Branch SARS-COV-2 COVID-19 2020-04-21 Completed Unive rsity of MODERNA VACCINE 00:00:[address] [facility] ical Branch SARS-COV-2 COVID-19 2020-04-21 Completed Unive rsity of MODERNA VACCINE 00:00:[address] [facility] ical Branch SARS-COV-2 COVID-19 2020-04-21 Completed Unive rsity of MODERNA VACCINE 00:00:00 [facility] SARS-COV-2 COVID-19 2020-04-21 Completed Unive rsity of MODERNA VACCINE 00:00:[address] [facility] ical Branch SARS-COV-2 COVID-19 2020-04-21 Completed Unive rsity of MODERNA VACCINE 00:00:00 [facility] SARS-COV-2 COVID-19 2020-04-21 Completed Unive rsity of MODERNA VACCINE 00:00:00 [facility] Branch SARS-COV-2 COVID-19 2020-04-21 Completed Unive rsity of MODERNA VACCINE 00:00:00 [facility] Branch SARS-COV-2 COVID-19 2020-04-21 Completed Unive rsity of MODERNA VACCINE 00:00:00 [facility] [place] [facility] Vital Signs Vital Name Observation Time Observation Value Comments Source Systolic blood 2021-05-09 17:09:00 146 mm[Hg] Univer sity of pressure [facility] Diastolic blood 2021-05-09 17:09:00 87 mm[Hg] Unive rsity of pressure [facility] Heart rate 2021-05-09 17:09:00 103 /min [facility] Body temperature 2021-05-09 17:09:00 36.56 Kate [facility] Respiratory rate 2021-05-09 17:09:00 18 /min [facility] [place] [facility] Oxygen saturation in 2021-05-09 17:09:00 97 /min [facility] blood by [facility] Pulse oximetry [place] Body weight 2021-05-09 09:58:00 69.491 kg [facility] BMI 2021-05-09 09:58:00 23.99 kg/m2 [facility] Body height 2021-05-05 00:56:00 170.2 cm [facility] Systolic blood 2021-05-05 16:00:00 127 mm[Hg] Univer sity of pressure [facility] Diastolic blood 2021-05-05 16:00:00 80 mm[Hg] Unive rsity of pressure [facility] Heart rate 2021-05-05 16:00:00 131 /min Universi ty of [facility] Body temperature 2021-05-05 16:00:00 36.72 Kate Univ ersity of [facility] Respiratory rate 2021-05-05 16:00:00 19 /min [facility] Oxygen saturation in 2021-05-05 16:00:00 99 /min [facility] Arterial blood by [facility] Pulse oximetry Branch Body height 2021-05-05 00:56:00 170.2 cm Universi ty of [facility] Body weight 2021-05-05 00:56:00 63.504 kg Universi ty of [facility] BMI 2021-05-05 00:56:00 21.93 kg/m2 Universi ty of [facility] Systolic blood 2020-05-10 19:43:00 127 mm[Hg] Univer sity of pressure [facility] Diastolic blood 2020-05-10 19:43:00 83 mm[Hg] Unive rsity of pressure [facility] Heart rate 2020-05-10 19:42:00 105 /min [facility]i ty [facility] [place] [facility] [place] Respiratory rate 2020-05-10 19:42:00 19 /min [facility] [place] [facility] Body height 2020-05-10 19:42:00 170.2 cm [facility]i ty [facility] [place] [facility] [place] Body weight 2020-05-10 19:42:00 59.421 kg [facility]i ty [facility] [place] [facility] [place] BMI 2020-05-10 19:42:00 20.52 kg/m2 Universi ty [facility] Procedures Procedure Date / Time Performing Clinician Source Performed PHOSPHORUS 2021-05-09 11:50:00 Shayna Vazquez [facility] MAGNESIUM 2021-05-09 11:50:00 Shayna Vazquez [facility] BASIC METABOLIC PANEL 2021-05-09 11:50:00 Shayna Vazquez [facility] (NA, K, CL, CO2, GLUCOSE, [place] [facility] l Branch BUN, CREATININE, CA) CBC WITH DIFF 2021-05-09 11:50:[facility] 2021-05-08 15:17:00 Clementina [facility] MAGNESIUM 2021-05-08 15:17:00 Clementina [facility] BASIC METABOLIC PANEL 2021-05-08 15:17:00 Clementina [facility] (NA, K, CL, CO2, GLUCOSE, Medica l Branch BUN, CREATININE, CA) PHOSPHORUS 2021-05-07 10:37:00 Clementina [facility] MAGNESIUM 2021-05-07 10:37:00 Clementina [facility] COMP. METABOLIC PANEL 2021-05-07 10:37:[address] [facility] ([id number]) [facility] CBC WITH DIFF 2021-05-07 10:37:[address] [facility] MAGNESIUM 2021-05-06 10:22:[address] [facility] COMP. METABOLIC PANEL 2021-05-06 10:22:[address] [facility] ([id number]) [facility] CBC WITH DIFF 2021-05-06 10:22:[address] [facility] N-TERMINAL PRO-BNP 2021-05-06 10:22:00 Whitney noel [facility] MAGNESIUM 2021-05-06 10:22:[address] [facility] COMP. METABOLIC PANEL 2021-05-06 10:22:[address] [facility] ([id number]) [facility] CBC WITH DIFF 2021-05-06 10:22:[address] [facility] N-TERMINAL PRO-BNP 2021-05-06 10:22:00 Whitney noel [facility] HB ABO GROUPING 2021-05-05 19:23:00 Elizabeth Webb [facility] HB ABO GROUPING 2021-05-05 19:23:00 Jon [facility] EXPLORATORY LAPAROTOMY 2021-05-05 17:05:00 Jon [facility] LYSIS OF ABDOMINAL 2021-05-05 17:05:00 Jon [facility] ADHESIONS Medical Branch EXPLORATORY LAPAROTOMY 2021-05-05 17:05:00 Jon [facility] LYSIS OF ABDOMINAL 2021-05-05 17:05:00 Jon [facility] ADHESIONS Medical Branch XR ABDOMEN 1 VW 2021-05-05 15:00:[address] [facility] XR ABDOMEN 1 VW 2021-05-05 15:00:[address] [facility] MAGNESIUM 2021-05-05 09:59:[address] [facility] FREE T4 2021-05-05 09:59:00 [facility] MET[facility]OLIC PANEL 2021-05-05 09:59:00 Andrew Olson [facility] ([id number]) [facility] CBC WITH DIFF 2021-05-05 09:59:00 Whitney noel [facility] PROTHROMBIN TIME / INR 2021-05-05 09:59:00 Andrew Olson [facility] N-TERMINAL PRO-BNP 2021-05-05 09:59:00 Andrew Olson [facility] FREE T3 2021-05-05 09:59:00 Silas Murillo [facility] PROCALCITONIN 2021-05-05 09:59:00 Whitney noel [facility] MAGNESIUM 2021-05-05 09:59:00 Whitney noel [facility] FREE T4 2021-05-05 09:59:00 Silas Murillo [facility] COMP. METABOLIC PANEL 2021-05-05 09:59:00 Whitney noel [facility] ([id number]) [facility] CBC WITH DIFF 2021-05-05 09:59:00 Whitney noel [facility] PROTHROMBIN TIME / INR 2021-05-05 09:59:00 Whitney noel [facility] N-TERMINAL PRO-BNP 2021-05-05 09:59:00 Andrew Olson [facility] FREE T3 2021-05-05 09:59:00 Silas Murillo [facility] PROCALCITONIN 2021-05-05 09:59:[address] [facility] XR KUB 2021-05-05 04:20:11 Singer [facility] XR KUB 2021-05-05 04:20:11 Singer [facility] COVID-19 (ID NOW RAPID 2021-05-05 03:16:00 ePrry Hoskins [facility] TESTING) Medical Branch LAB ONLY COVID 2021-05-05 03:16:00 Singer [facility] INTERPRETATION [facility] COVID-19 (ID NOW RAPID 2021-05-05 03:16:00 Perry Hoskins [facility] TESTING) Medical Branch LAB ONLY COVID 2021-05-05 03:16:00 Singer [facility] INTERPRETATION [facility] CT ABDOMEN PELVIS W 2021-05-05 02:21:11 Perry Hoskins [facility] CONTRAST Medical Branch CT ABDOMEN PELVIS W 2021-05-05 02:21:11 Perry Hoskins [facility] CONTRAST Medical Branch URINALYSIS 2021-05-05 01:23:00 Singer Perry [facility] LACTIC ACID WHOLE BLOOD 2021-05-05 01:23:00 Perry Hoskins [facility] URINALYSIS 2021-05-05 01:23:00 Singer [facility] LACTIC ACID WHOLE BLOOD 2021-05-05 01:23:00 Singer Perry [facility] URIC ACID 2021-05-05 01:21:00 Whitney noel [facility] LIPASE 2021-05-05 01:21:00 Singer [facility] MAGNESIUM 2021-05-05 01:21:00 Whitney noel [facility] THYROID STIMULATING 2021-05-05 01:21:00 Andrew Olson [facility] HORMONE [facility] Branch COMP. METABOLIC PANEL 2021-05-05 01:21:00 Perry Hoskins [facility] ([id number]) Medical Branch LIPID PANEL ([id number])(TOTAL 2021-05-05 01:21:00 Andrew Olson [facility] CHOLESTEROL, Medical Branch TRIGLYCERIDES, HDL) CBC WITH DIFF 2021-05-05 01:21:00 Singer [facility] GLYCOSYLATED HEMOGLOBIN 2021-05-05 01:21:00 Whitney noel [facility] (A1C) Medical [place] N-TERMINAL PRO-BNP 2021-05-05 01:21:00 Andrew Olson [facility] URIC ACID 2021-05-05 01:21:00 Whitney noel [facility] LIPASE 2021-05-05 01:21:00 Singer [facility] MAGNESIUM 2021-05-05 01:21:00 Whitney noel [facility] THYROID STIMULATING 2021-05-05 01:21:00 Andrew Olson [facility] HORMONE Medical Branch COMP. METABOLIC PANEL 2021-05-05 01:21:00 Perry Hoskins [facility] ([id number]) Medical Branch LIPID PANEL (91636)(TOTAL 2021-05-05 01:21:00 Andrew Olson [facility] CHOLESTEROL, Medical Branch TRIGLYCERIDES, HDL) CBC WITH DIFF 2021-05-05 01:21:00 Singer [facility] GLYCOSYLATED HEMOGLOBIN 2021-05-05 01:21:00 Whitney noel [facility] (A1C) Medical Branch N-TERMINAL PRO-BNP 2021-05-05 01:21:00 Andrew Olson [facility] NOTICE OF PRIVACY 2021-05-05 00:43:58 Doctor Unassigned, [facility] PRACTICES [place] [facility] NOTICE OF PRIVACY 2021-05-05 00:43:58 Doctor Unassladonna, [facility] PRACTICES [place] [facility] CONSENT/REFUSAL FOR 2021-05-05 00:43:45 Doctor Unassladonna [facility] DIAGNOSIS AND TREATMENT [place] [facility] CONSENT/REFUSAL FOR 2021-05-05 00:43:45 Doctor Unassladonna [facility] DIAGNOSIS AND TREATMENT [facility] REFERRAL- 2020-01-29 06:01:00 Doctor Stephany, [facility] REQUEST/RESPONSE [place] [facility] Encounters Start End Encounter Admission Attending Care Care Encounter Source Date/Time Date/Time Type Type Clinicians Facility Department ID 2021-05-10 2021-05-10 Transition CHIKIS Anton [id number] Univers 00:00:00 00:00:00 of Care Celsa THOMPSON [id number] i ty [place] [id number] [facility] 403 Branch 2021-05-04 2021-05-09 Inpatient X WHITNEY [facility] SHAYLA [id number] Univers 20:04:00 17:12:00 ADNAN ity of [facility] 2021-05-04 2021-05-09 Hospital Perry Hoskins [facility] [id number] Univers 20:04:00 17:12:00 Encounter WhitneyAndrew verma [id number] [place] [id number] [facility] 081 Branch 2021-05-05 2021-05-05 [facility] [id number] Univers 12:30:00 15:27:00 Elizabeth KAN [id number] [place] SURGICAL [id number] [facility] 020 Branch 2021-02-10 2021-02-10 Telephone Alaina Yepez [id number] Univers 00:00:00 00:00:00 GOLDEN [id number] it y of [facility] 4.2.7.2.686 Shawn as [phone] [address] 2021-02-09 2021-02-09 Outpatient R FEDE [facility] [id number] Univers 10:00:00 10:22:19 SAEED [facility] [place] [facility] 2021-02-09 2021-02-09 Laboratory Only, Ang Db Test [facility] 1.2.8 40.114 [id number] Univers 10:00:00 10:22:19 Only Saeed Mistry [facility] [id number] ity of [place] 4.2.7.2.686 Shawn as LONNIE?BLEA [phone] Ok dical KNEY [address] [place] MEDICAL OFF[facility] 2021-02-09 2021-02-09 Outpatient R [facility] [id number] Univers 10:00:00 10:00:00 [id number] [facility] 2020-09-13 2020-09-13 [id number] Univers 15:00:00 15:00:00 JOSEPHINE [id number] [facility] 2020-09-13 2020-09-13 [facility] [id number] Univers 15:00:00 15:00:00 JOSEPHINE [facility] 2020-05-19 2020-05-19 Outpatient R [facility] [id number] Univers 11:00:00 11:00:00 ARA [facility] 2020-05-11 2020-05-11 [facility] 1.2.840.114 [id number] Univers 00:00:00 00:00:00 Secure Msg Josephine Kelsey [id number] it[place] Profess[place] [phone] Ok dical [facility] 220 Branch Building 2020-05-10 2020-05-10 Minil[employer] Operator Rossana Arreola Lab Main [facility] 1.2.8 40.114 [id number] Univers 15:54:03 16:09:03 Visit Valeriy Josephine Kan [id number] [place] Profess[place] [phone] Ok dical nal [address] [facility] 2020-05-10 2020-05-10 Office [facility] 1.2.840.114 [id number] Univers 14:30:44 15:23:33 Visit Josephine Kan 350.1.13.10 i ty [facility] 4.2.7.2.686 Marilu hylton essio [phone] Ok dical nal [address] [facility] 2020-05-10 2020-05-10 Outpatient R VALERIY [facility] [id number] Univers 14:30:00 14:30:00 JOSEPHINE [facility] 2020-05-10 2020-05-10 [facility] [id number] Univers 14:30:00 14:30:00 JOSEPHINE [id number] [facility] 2020-04-21 2020-04-21 Outpatient [facility] [id number] Univers 11:20:00 11:20:00 [facility] 2020-01-29 2020-01-29 Orders Doctor JUVENAL 1.2.840.114 [id number] Univers 00:00:00 00:00:00 Only Unassigned, [place] 350.1.13.10 ity of [place] [facility] 4.2.7.2.686 Shawn as [id number] [address] 2019-01-02 2019-01-02 Outpatient R YELENA [facility] [id number] Univers 13:00:00 13:00:00 REBECCA [facility] 2009-07-09 2009-07-09 Emergency X IWONAA, [facility] ERT [id number] Univers 13:24:00 20:09:00 RADHESHYAM 7 [facility] Results Test Description Test Time Test Comments Results Result Comments Source MAGNESIUM 2021-05-09 12:08:04 Test Item Value Reference Range Interpretation Comme nts MAGNESIUM (test code = 7617201237) 1.7 mg/dL 1.7-2.4 Lab Interpretation (test code = 12976-3) Normal [facility] (NA, K, CL, CO2, GLUCOSE, BUN, CREATININE, CA)2021-05-09 12:08:04 Test Item Value Reference Range Interpretation Comments NA (test code = 137 mmol/L 135-145 9165485270) K (test code = 4.0 mmol/L 3.5-5.0 7765447129) CL (test code = 105 mmol/L 98-108 5908449608) CO2 TOTAL (test code = 24 mmol/L 23-31 9480155999) AGAP (test code = 2-16 9206269100) BUN (test code = 6 mg/dL 7-23 L 4952312245) GLUCOSE (test code = 92 mg/dL 70-110 7622951571) CREATININE (test code = 0.61 mg/dL 0.50-1.04 9472154871) CALCIUM (test code = 8.1 mg/dL 8.6-10.6 L 8047623988) eGFR (test code = mL/min/1.73m2 8307314485) AKSHAT (test code = AKSHAT) Association of Glomerular Filtration Rate (GFR) and Staging of Kidney Disease* + --+ --+ ------+| GFR (mL/min/1.73 m2) ?| With Kidney Damage ?| ?Without Kidney Damage+ --------+ --------+ +| ?>90 ?| ?Stage one ?| ? Normal ?+ ---+ ---+ -------+| ?60-89 ?| ?Stage two ?| ? Decreased GFR ? + --+ --+ ------+| ?30-59 ?| ?Stage three ?| ? Stage three ? + --+ --+ ------+| ?15-29 ?| ?Stage four ? | ? Stage four ?+ ---+ ---+ -------+| ?<15 (or dialysis) ? ?| ?Stage five ? | ? Stage five ?+ ---+ ---+ -------+ *Each stage assumes the associated GFR level has been in effect for at least three months. ?Stages 1 to 5, with or without kidney disease, indicate chronic kidney disease. Notes: Determination of stages one and two (with eGFR >59mL/min/1.73 m2) requires estimation of kidney damage for at least three months as defined by structural or functional abnormalities of the kidney, manifested by either:Pathological abnormalities or Markers of kidney damage (including abnormalities in the composition of the blood or urine or abnormalities in imaging tests). Lab Interpretation Abnormal (test code = 25589-7) [facility] 12:07:44 Test Item Value Reference Range Interpretation Comments PHOSPHORUS (test code = 4814488778) 3.0 mg/dL 2.5-5.0 Lab Interpretation (test code = Normal 07381-5) [facility] LAPF2666-09-20 12:05:08 Test Item Value Reference Range Interpretation Comments WBC (test code = See_Comment [Automated 6690-2) message] The sy stem which generated this result transmitted reference range : 4.30 - 11.10 10*3/?L. The reference range was not used to interpret this result as normal/abnormal . RBC (test code = See_Comment [Automated 789-8) message] The sy stem which generated this result transmitted reference range : 3.93 - 5.25 10*6/?L. The reference range was not used to interpret this result as normal/abnormal . HGB (test code = 11.3 g/dL 11.6-15.0 L 718-7) HCT (test code = 34.8 % 35.7-45.2 L 4544-3) MCV (test code = 87.4 fL 80.6-95.5 787-2) MCH (test code = 28.4 pg 25.9-32.8 785-6) MCHC (test code = 32.5 g/dL 31.6-35.1 786-4) RDW-SD (test code = 40.3 fL 39.0-49.9 88088-8) RDW-CV (test code = 12.5 % 12.0-15.5 788-0) PLT (test code = See_Comment [Automated 777-3) message] The sy stem which generated this result transmitted reference range : 166 - 358 10*3/ ?L. The reference r jj was not used to interpret this result as normal/abnormal . MPV (test code = 9.1 fL 9.5-12.9 L 14135-6) NRBC/100 WBC (test See_Comment [Automat ed code = 0960702439) message] The system which generated this result transmitted reference range : 0.0 - 10.0 /100 WBCs. The refer ence range was not u sed to interpret th is result as normal/abnormal . NRBC x10^3 (test code <0.01 See_Comment [Auto mated = 3292965805) message] The s ystem which generated this result transmitted reference range : 10*3/?L. The reference range was not used to interpret this result as normal/abnormal . GRAN MAT (NEUT) % 59.7 % (test code = 770-8) IMM GRAN % (test code 0.90 % = 9171315354) LYMPH % (test code = 22.6 % 736-9) MONO % (test code = 7.5 % 5905-5) EOS % (test code = 8.6 % 713-8) BASO % (test code = 0.7 % 706-2) GRAN MAT x10^3(ANC) 4.46 10*3/uL 1.88-7.09 (test code = 8139835505) IMM GRAN x10^3 (test 0.07 10*3/uL 0.00-0.06 H code = 8121946908) LYMPH x10^3 (test code 1.69 10*3/uL 1.32-3.29 = 731-0) MONO x10^3 (test code 0.56 10*3/uL 0.33-0.92 = 742-7) EOS x10^3 (test code = 0.64 10*3/uL 0.03-0.39 H 711-2) BASO x10^3 (test code 0.05 10*3/uL 0.01-0.07 = 704-7) Lab Interpretation Abnormal (test code = 08414-9) [facility] 15:46:59 Test Item Value Reference Range Interpretation Comments MAGNESIUM (test code = 5981648770) 1.8 mg/dL 1.7-2.4 Lab Interpretation (test code = Normal 96871-8) [facility] METABOLIC PANEL (NA, K, CL, CO2, GLUCOSE, BUN, CREATININE, CA)2021-05-08 15:46:39 Test Item Value Reference Range Interpretation Comments NA (test code = 137 mmol/L 135-145 2337818741) K (test code = 3.7 mmol/L 3.5-5.0 1226273355) CL (test code = 104 mmol/L 98-108 5542751151) CO2 TOTAL (test code = 24 mmol/L 23-31 9203425774) AGAP (test code = 2-16 0828212619) BUN (test code = 7 mg/dL 7-23 3053006026) GLUCOSE (test code = 79 mg/dL 70-110 3963908507) CREATININE (test code = 0.55 mg/dL 0.50-1.04 7311765630) CALCIUM (test code = 7.7 mg/dL 8.6-10.6 L 1326487552) eGFR (test code = mL/min/1.73m2 6789405271) AKSHAT (test code = AKSHAT) Association of Glomerular Filtration Rate (GFR) and Staging of Kidney Disease* + --+ --+ ------+| GFR (mL/min/1.73 m2) ?| With Kidney Damage ?| ?Without Kidney Damage+ --------+ --------+ +| ?>90 ?| ?Stage one ?| ? Normal ?+ ---+ ---+ -------+| ?60-89 ?| ?Stage two ?| ? Decreased GFR ? + --+ --+ ------+| ?30-59 ?| ?Stage three ?| ? Stage three ? + --+ --+ ------+| ?15-29 ?| ?Stage four ? | ? Stage four ?+ ---+ ---+ -------+| ?<15 (or dialysis) ? ?| ?Stage five ? | ? Stage five ?+ ---+ ---+ -------+ *Each stage assumes the associated GFR level has been in effect for at least three months. ?Stages 1 to 5, with or without kidney disease, indicate chronic kidney disease. Notes: Determination of stages one and two (with eGFR >59mL/min/1.73 m2) requires estimation of kidney damage for at least three months as defined by structural or functional abnormalities of the kidney, manifested by either:Pathological abnormalities or Markers of kidney damage (including abnormalities in the composition of the blood or urine or abnormalities in imaging tests). Lab Interpretation Abnormal (test code = 97119-1) [facility] 15:46:39 Test Item Value Reference Range Interpretation Comments PHOSPHORUS (test code = 9321544656) 2.5 mg/dL 2.5-5.0 Lab Interpretation (test code = Normal 66088-9) [facility] (25838)2021-05-07 11:34:05 Test Item Value Reference Range Interpretation Comments NA (test code = 138 mmol/L 135-145 2697797990) K (test code = 3.6 mmol/L 3.5-5.0 3771103259) CL (test code = 106 mmol/L 98-108 9452470326) CO2 TOTAL (test code = 24 mmol/L 23-31 4197790251) AGAP (test code = 2-16 2035182239) BUN (test code = 13 mg/dL 7-23 2998822817) GLUCOSE (test code = 72 mg/dL 70-110 2393570303) CREATININE (test code = 0.76 mg/dL 0.50-1.04 6746549040) TOTAL BILI (test code = 0.6 mg/dL 0.1-1.1 9343726828) CALCIUM (test code = 7.4 mg/dL 8.6-10.6 L 4114072772) T PROTEIN (test code = 5.5 g/dL 6.3-8.2 L 9188102325) ALBUMIN (test code = 3.0 g/dL 3.5-5.0 L 3194364967) ALK PHOS (test code = 51 U/L 34-122 1340051487) ALTv (test code = 22 U/L 5-35 1742-6) AST(SGOT) (test code = 41 U/L 13-40 H 9339006524) eGFR (test code = mL/min/1.73m2 0547473301) AKSHAT (test code = AKSHAT) Association of Glomerular Filtration Rate (GFR) and Staging of Kidney Disease* + --+ --+ ------+| GFR (mL/min/1.73 m2) ?| With Kidney Damage ?| ?Without Kidney Damage+ --------+ --------+ +| ?>90 ?| ?Stage one ?| ? Normal ?+ ---+ ---+ -------+| ?60-89 ?| ?Stage two ?| ? Decreased GFR ? + --+ --+ ------+| ?30-59 ?| ?Stage three ?| ? Stage three ? + --+ --+ ------+| ?15-29 ?| ?Stage four ? | ? Stage four ?+ ---+ ---+ -------+| ?<15 (or dialysis) ? ?| ?Stage five ? | ? Stage five ?+ ---+ ---+ -------+ *Each stage assumes the associated GFR level has been in effect for at least three months. ?Stages 1 to 5, with or without kidney disease, indicate chronic kidney disease. Notes: Determination of stages one and two (with eGFR >59mL/min/1.73 m2) requires estimation of kidney damage for at least three months as defined by structural or functional abnormalities of the kidney, manifested by either:Pathological abnormalities or Markers of kidney damage (including abnormalities in the composition of the blood or urine or abnormalities in imaging tests). Lab Interpretation Abnormal (test code = 41922-7) [facility] 11:34:05 Test Item Value Reference Range Interpretation Comments MAGNESIUM (test code = 5152586786) 1.8 mg/dL 1.7-2.4 Lab Interpretation (test code = Normal 69303-7) [facility] 11:33:44 Test Item Value Reference Range Interpretation Comments PHOSPHORUS (test code = 3737380458) 2.3 mg/dL 2.5-5.0 L Lab Interpretation (test code = Abnormal 79971-1) [facility] [place] [place] [id number] 10:53:28 Test Item Value Reference Range Interpretation Comments WBC (test code = See_Comment [Automated 7090-2) message] The sy stem which generated this result transmitted reference range : 4.30 - 11.10 10*3/?L. The reference range was not used to interpret this result as normal/abnormal . RBC (test code = See_Comment L [Automated 209-8) message] The sy stem which generated this result transmitted reference range : 3.93 - 5.25 10*6/?L. The reference range was not used to interpret this result as normal/abnormal . HGB (test code = 9.0 g/dL 11.6-15.0 L 718-7) HCT (test code = 28.3 % 35.7-45.2 L 4544-3) MCV (test code = 89.6 fL 80.6-95.5 787-2) MCH (test code = 28.5 pg 25.9-32.8 785-6) MCHC (test code = 31.8 g/dL 31.6-35.1 786-4) RDW-SD (test code = 42.5 fL 39.0-49.9 33806-2) RDW-CV (test code = 12.9 % 12.0-15.5 788-0) PLT (test code = See_Comment [Automated 777-3) message] The sy stem which generated this result transmitted reference range : 166 - 358 10*3/ ?L. The reference r jj was not used to interpret this result as normal/abnormal . MPV (test code = 9.6 fL 9.5-12.9 33106-1) NRBC/100 WBC (test See_Comment [Automat ed code = 2207222278) message] The system which generated this result transmitted reference range : 0.0 - 10.0 /100 WBCs. The refer ence range was not u sed to interpret th is result as normal/abnormal . NRBC x10^3 (test code <0.01 See_Comment [Auto mated = 7545527470) message] The s ystem which generated this result transmitted reference range : 10*3/?L. The reference range was not used to interpret this result as normal/abnormal . GRAN MAT (NEUT) % 65.5 % (test code = 770-8) IMM GRAN % (test code 0.50 % = 1416892041) LYMPH % (test code = 20.5 % 736-9) MONO % (test code = 7.8 % 5905-5) EOS % (test code = 5.5 % 713-8) BASO % (test code = 0.2 % 706-2) GRAN MAT x10^3(ANC) 3.78 10*3/uL 1.88-7.09 (test code = 3310850761) IMM GRAN x10^3 (test 0.03 10*3/uL 0.00-0.06 code = 1055403361) LYMPH x10^3 (test code 1.18 10*3/uL 1.32-3.29 L = 731-0) MONO x10^3 (test code 0.45 10*3/uL 0.33-0.92 = 742-7) EOS x10^3 (test code = 0.32 10*3/uL 0.03-0.39 711-2) BASO x10^3 (test code <0.03 0.01-0.07 = 704-7) Lab Interpretation Abnormal (test code = 26694-9) [facility] WITH [id number] 12:06:25 Test Item Value Reference Range Interpretation Comments WBC (test code = See_Comment [Automated 3190-2) message] The sy stem which generated this result transmitted reference range : 4.30 - 11.10 10*3/?L. The reference range was not used to interpret this result as normal/abnormal . RBC (test code = See_Comment L [Automated 739-8) message] The sy stem which generated this result transmitted reference range : 3.93 - 5.25 10*6/?L. The reference range was not used to interpret this result as normal/abnormal . HGB (test code = 10.2 g/dL 11.6-15.0 L 718-7) HCT (test code = 31.6 % 35.7-45.2 L 4544-3) MCV (test code = 87.5 fL 80.6-95.5 787-2) MCH (test code = 28.3 pg 25.9-32.8 785-6) MCHC (test code = 32.3 g/dL 31.6-35.1 786-4) RDW-SD (test code = 41.0 fL 39.0-49.9 97762-6) RDW-CV (test code = 12.8 % 12.0-15.5 788-0) PLT (test code = See_Comment [Automated 777-3) message] The sy stem which generated this result transmitted reference range : 166 - 358 10*3/ ?L. The reference r jj was not used to interpret this result as normal/abnormal . MPV (test code = 9.6 fL 9.5-12.9 34283-8) IPF % (test code = 1.6 % 1.3-7.7 Platelet count 2522061525) measured by fluorescence method. NRBC/100 WBC (test See_Comment [Automat ed code = 2368484067) message] The system which generated this result transmitted reference range : 0.0 - 10.0 /100 WBCs. The refer ence range was not u sed to interpret th is result as normal/abnormal . NRBC x10^3 (test code <0.01 See_Comment [Auto mated = 9856333153) message] The s ystem which generated this result transmitted reference range : 10*3/?L. The reference range was not used to interpret this result as normal/abnormal . GRAN MAT (NEUT) % 73.3 % (test code = 770-8) IMM GRAN % (test code 0.40 % = 4751029709) LYMPH % (test code = 14.9 % 736-9) MONO % (test code = 10.9 % 5905-5) EOS % (test code = 0.4 % 713-8) BASO % (test code = 0.1 % 706-2) GRAN MAT x10^3(ANC) 5.10 10*3/uL 1.88-7.09 (test code = 4790832540) IMM GRAN x10^3 (test 0.03 10*3/uL 0.00-0.06 code = 5603858216) LYMPH x10^3 (test code 1.04 10*3/uL 1.32-3.29 L = 731-0) MONO x10^3 (test code 0.76 10*3/uL 0.33-0.92 = 742-7) EOS x10^3 (test code = 0.03 10*3/uL 0.03-0.39 711-2) BASO x10^3 (test code <0.03 0.01-0.07 = 704-7) Lab Interpretation Abnormal (test code = 89322-6) [facility] WITH [id number] 12:06:25 Test Item Value Reference Range Interpretation Comments WBC (test code = See_Comment [Automated 6690-2) message] The sy stem which generated this result transmitted reference range : 4.30 - 11.10 10*3/?L. The reference range was not used to interpret this result as normal/abnormal . RBC (test code = See_Comment L [Automated 789-8) message] The sy stem which generated this result transmitted reference range : 3.93 - 5.25 10*6/?L. The reference range was not used to interpret this result as normal/abnormal . HGB (test code = 10.2 g/dL 11.6-15.0 L 718-7) HCT (test code = 31.6 % 35.7-45.2 L 4544-3) MCV (test code = 87.5 fL 80.6-95.5 787-2) MCH (test code = 28.3 pg 25.9-32.8 785-6) MCHC (test code = 32.3 g/dL 31.6-35.1 786-4) RDW-SD (test code = 41.0 fL 39.0-49.9 31299-2) RDW-CV (test code = 12.8 % 12.0-15.5 788-0) PLT (test code = See_Comment [Automated 777-3) message] The sy stem which generated this result transmitted reference range : 166 - 358 10*3/ ?L. The reference r jj was not used to interpret this result as normal/abnormal . MPV (test code = 9.6 fL 9.5-12.9 18540-6) IPF % (test code = 1.6 % 1.3-7.7 Platelet count 9433450533) measured by fluorescence method. NRBC/100 WBC (test See_Comment [Automat ed code = 9154262234) message] The system which generated this result transmitted reference range : 0.0 - 10.0 /100 WBCs. The refer ence range was not u sed to interpret th is result as normal/abnormal . NRBC x10^3 (test code <0.01 See_Comment [Auto mated = 9201274859) message] The s ystem which generated this result transmitted reference range : 10*3/?L. The reference range was not used to interpret this result as normal/abnormal . GRAN MAT (NEUT) % 73.3 % (test code = 770-8) IMM GRAN % (test code 0.40 % = 6265338217) LYMPH % (test code = 14.9 % 736-9) MONO % (test code = 10.9 % 5905-5) EOS % (test code = 0.4 % 713-8) BASO % (test code = 0.1 % 706-2) GRAN MAT x10^3(ANC) 5.10 10*3/uL 1.88-7.09 (test code = 9645196596) IMM GRAN x10^3 (test 0.03 10*3/uL 0.00-0.06 code = 0957115609) LYMPH x10^3 (test code 1.04 10*3/uL 1.32-3.29 L = 731-0) MONO x10^3 (test code 0.76 10*3/uL 0.33-0.92 = 742-7) EOS x10^3 (test code = 0.03 10*3/uL 0.03-0.39 711-2) BASO x10^3 (test code <0.03 0.01-0.07 = 704-7) Lab Interpretation Abnormal (test code = 80826-5) [facility] [id number] 11:09:53 Test Item Value Reference Range Interpretation Comments NT-proBNP (test code 329 pg/mL See_Comment H [Autom ated = 7792301218) message] The system which generated this result transmitted reference range : <=125. The reference range was not used to interpret this result as normal/abnormal . AKSHAT (test code = AKSHAT) Biotin has been reported to cause a negative bias, interpret results relative to patient's use of biotin. Lab Interpretation Abnormal (test code = 06908-0) [facility] [id number] 11:09:53 Test Item Value Reference Range Interpretation Comments NT-proBNP (test code 329 pg/mL See_Comment H [Autom ated = 7190381211) message] The system which generated this result transmitted reference range : <=125. The reference range was not used to interpret this result as normal/abnormal . AKSHAT (test code = AKSHAT) Biotin has been reported to cause a negative bias, interpret results relative to patient's use of biotin. Lab Interpretation Abnormal (test code = 90176-6) [facility] ([id number])2021-05-06 11:04:15 Test Item Value Reference Range Interpretation Comments NA (test code = 136 mmol/L 135-145 7637790853) K (test code = 3.8 mmol/L 3.5-5.0 7411649053) CL (test code = 104 mmol/L 98-108 0993326109) CO2 TOTAL (test code = 26 mmol/L 23-31 3837640213) AGAP (test code = 2-16 8902707103) BUN (test code = 13 mg/dL 7-23 5263433080) GLUCOSE (test code = 108 mg/dL 70-110 5680364787) CREATININE (test code = 0.75 mg/dL 0.50-1.04 5286776819) TOTAL BILI (test code = 1.0 mg/dL 0.1-1.9 5984713323) CALCIUM (test code = 8.0 mg/dL 8.6-10.6 L 4745274142) T PROTEIN (test code = 5.9 g/dL 6.3-8.2 L 9690630586) ALBUMIN (test code = 3.5 g/dL 3.5-5.0 3235457905) ALK PHOS (test code = 43 U/L 34-122 2556294491) ALTv (test code = 21 U/L 5-35 1742-6) AST(SGOT) (test code = 38 U/L 13-40 8687673580) eGFR (test code = mL/min/1.73m2 0596070806) AKSHAT (test code = AKSHAT) Association of Glomerular Filtration Rate (GFR) and Staging of Kidney Disease* + --+ --+ ------+| GFR (mL/min/1.73 m2) ?| With Kidney Damage ?| ?Without Kidney Damage+ --------+ --------+ +| ?>90 ?| ?Stage one ?| ? Normal ?+ ---+ ---+ -------+| ?60-89 ?| ?Stage two ?| ? Decreased GFR ? + --+ --+ ------+| ?30-59 ?| ?Stage three ?| ? Stage three ? + --+ --+ ------+| ?15-29 ?| ?Stage four ? | ? Stage four ?+ ---+ ---+ -------+| ?<15 (or dialysis) ? ?| ?Stage five ? | ? Stage five ?+ ---+ ---+ -------+ *Each stage assumes the associated GFR level has been in effect for at least three months. ?Stages 1 to 5, with or without kidney disease, indicate chronic kidney disease. Notes: Determination of stages one and two (with eGFR >59mL/min/1.73 m2) requires estimation of kidney damage for at least three months as defined by structural or functional abnormalities of the kidney, manifested by either:Pathological abnormalities or Markers of kidney damage (including abnormalities in the composition of the blood or urine or abnormalities in imaging tests). Lab Interpretation Abnormal (test code = 26883-4) [facility] 11:04:15 Test Item Value Reference Range Interpretation Comments MAGNESIUM (test code = 4207946975) 1.5 mg/dL 1.7-2.4 L Lab Interpretation (test code = Abnormal 88711-9) [facility] ([id number])2021-05-06 11:04:15 Test Item Value Reference Range Interpretation Comments NA (test code = 136 mmol/L 135-145 8340853370) K (test code = 3.8 mmol/L 3.5-5.0 4596146555) CL (test code = 104 mmol/L 98-108 2631001946) CO2 TOTAL (test code = 26 mmol/L 23-31 3872135091) AGAP (test code = 2-16 6453792346) BUN (test code = 13 mg/dL 7-23 0684417274) GLUCOSE (test code = 108 mg/dL 70-110 4527588507) CREATININE (test code = 0.75 mg/dL 0.50-1.04 5992316364) TOTAL BILI (test code = 1.0 mg/dL 0.1-1.0 5144369588) CALCIUM (test code = 8.0 mg/dL 8.6-10.6 L 0429390383) T PROTEIN (test code = 5.9 g/dL 6.3-8.2 L 0918804205) ALBUMIN (test code = 3.5 g/dL 3.5-5.0 1002659218) ALK PHOS (test code = 43 U/L 34-122 0860595274) ALTv (test code = 21 U/L 5-35 1742-6) AST(SGOT) (test code = 38 U/L 13-40 5828080731) eGFR (test code = mL/min/1.73m2 7282324268) AKSHAT (test code = AKSHAT) Association of Glomerular Filtration Rate (GFR) and Staging of Kidney Disease* + --+ --+ ------+| GFR (mL/min/1.73 m2) ?| With Kidney Damage ?| ?Without Kidney Damage+ --------+ --------+ +| ?>90 ?| ?Stage one ?| ? Normal ?+ ---+ ---+ -------+| ?60-89 ?| ?Stage two ?| ? Decreased GFR ? + --+ --+ ------+| ?30-59 ?| ?Stage three ?| ? Stage three ? + --+ --+ ------+| ?15-29 ?| ?Stage four ? | ? Stage four ?+ ---+ ---+ -------+| ?<15 (or dialysis) ? ?| ?Stage five ? | ? Stage five ?+ ---+ ---+ -------+ *Each stage assumes the associated GFR level has been in effect for at least three months. ?Stages 1 to 5, with or without kidney disease, indicate chronic kidney disease. Notes: Determination of stages one and two (with eGFR >59mL/min/1.73 m2) requires estimation of kidney damage for at least three months as defined by structural or functional abnormalities of the kidney, manifested by either:Pathological abnormalities or Markers of kidney damage (including abnormalities in the composition of the blood or urine or abnormalities in imaging tests). Lab Interpretation Abnormal (test code = 85634-1) [facility] 11:04:15 Test Item Value Reference Range Interpretation Comments MAGNESIUM (test code = 8815015949) 1.5 mg/dL 1.7-2.4 L Lab Interpretation (test code = Abnormal 96897-3) [facility] - ONCE [id number] 20:00:53 Test Item Value Reference Range Interpretation Comments ABO & RH (test code O Positive Performe d at [facility] = 20) Laboratory [facility] [place] [address] Free: [phone] A No. [id number] IAT (test code = Negative Performed a t [facility] 1185) Laboratory [facility] [address] Free: [phone] A No. [id number] [facility] - [facility]CE [id number] 20:00:53 Test Item Value Reference Range Interpretation Comments ABO & RH (test code O Positive Performe d at [facility] = 20) Laboratory [facility] [address] Free: [phone] A No. [id number] IAT (test code = Negative Performed a t [facility] 1185) Laboratory [facility] [address] Free: [phone] A No. [id number] [facility]2022-[facility]-24 16:29:47 Test Item Value Reference Range Interpretation Comments Procalcitonin (test 0.02 ng/mL <0.07 code = 9760333128) AKSHAT (test code = AKSHAT) INTERPRETATION OF PROCALCITONIN RESULTS IN ADULTS >= 18 YEARS OF AGE Initiation and discontinuation of antibiotics on patients with suspected or confirmed Lower Respiratory Tract Infection in Adults >= 18 years of age. + +-------- --------+ + -----+|Procalcitonin |Interpretation ?|Antibiotic ? ? |Considerations ? |ng/mL ? | ?|recommendation | ? + +-------- --------+ + -----+| <0.1 ? | Bacterial ? ? ?| Strongly ? ? ?| ? | ?| infection very | discouraged ? | Overruling: ? | ?| unlikely ? ? ? | ? | ? Clinically unstable ? ? ? + +-------- --------+ + ? High risk for adverse ? ? | <0.25 ?| Bacterial ? ? ?| Discouraged ? | ? outcome ? | ?| infection ? ? ?| ? | ? SEE IMPORTANT NOTE ?| ?| unlikely ? ? ? | ? | ? + +-------- --------+ + -----+| >=0.25 ? ? ? | Bacterial ? ? ?| Encouraged ? ?| ? | ?| infection ? ? ?| ? | ? | ?| likely ? | ? | Consider treatment failure ?+ +------- ---------+ -+ if levels does not decrease | >0.5 ? | Bacterial ? ? ?| Strongly ? ? ?| appropriately ? | ?| infection very | encouraged ? ?| ? | ?| likely ? | ? | ? + +-------- --------+ + -----+ Discontinuation of antibiotics in high-acuity patients with suspected or confirmed sepsis in Adults >= 18 years of age. + +-------- --------+ + -----+|Procalcitonin |Interpretation ?|Antibiotic ? ? |Considerations ? |ng/mL ? | ?|recommendation | ? + +-------- --------+ + -----+| <0.25 ?| Bacterial ? ? ?| Strongly ? ? ?| ? | ?| infection very | discouraged ? | Overruling: ? | ?| unlikely ? ? ? | ? | ? Clinically unstable ? ? ? + +-------- --------+ + ? High risk for adverse ? ? | <0.5 or drop | Bacterial ? ? ?| Discouraged ? | ? outcome ? | >80% from ? ?| infection ? ? ?| ? | ? SEE IMPORTANT NOTE ?| highest PCT ?| unlikely ? ? ? | ? | ? | level ?| ?| ? | ? + +-------- --------+ + -----+| >=0.5 ?| Bacterial ? ? ?| Encouraged ? ?| ? | ?| infection ? ? ?| ? | ? | ?| likely ? | ? | Consider treatment failure ?+ +------- ---------+ -+ if levels does not decrease | >1.0 ? | Bacterial ? ? ?| Strongly ? ? ?| appropriately ? | ?| infection very | encouraged ? ?| ? | ?| likely ? | ? | ? + +-------- --------+ + -----+ Percentage of drop of Procalcitonin calculation for Discontinuation of antibiotics in high-acuity patients with suspected or confirmed sepsis in Adults >= 18 years of age. ? Procalcitonin highest{}-Procalcitonin current{}Delta Procalcitonin = x100% ? Procalcitonin current {} IMPORTANT NOTE: Procalcitonin may be elevated without bacterial infection by physiologic stress related to trauma, juarez, chronic dialysis, metastatic cancer, surgery in the past seven days, malaria, some fungal infections, and some forms of vasculitis. The interpretation algorithm may not apply to patients with immunosuppression (equivalent of >10 mg of prednisone daily), HIV with CD4 cell count < 350 cells/mm3, active malignancy on systemic chemotherapy, solid organ transplant or hematopoietic stem cell transplantation, or hospital acquired pneumonia. Additionally, some clinical trials of procalcitonin have excluded patients with shock requiring vasopressor use, acute respiratory failure requiring mechanical ventilation, or those with known lung abscess/empyema. For further information please refer to:[email or web address] Lab Interpretation Normal (test code = 54744-5) [facility]24 16:29:47 Test Item Value Reference Range Interpretation Comments Procalcitonin (test 0.02 ng/mL <0.07 code = 8833255098) AKSHAT (test code = AKSHAT) INTERPRETATION OF PROCALCITONIN RESULTS IN ADULTS >= 18 YEARS OF AGE Initiation and discontinuation of antibiotics on patients with suspected or confirmed Lower Respiratory Tract Infection in Adults >= 18 years of age. + +-------- --------+ + -----+|Procalcitonin |Interpretation ?|Antibiotic ? ? |Considerations ? |ng/mL ? | ?|recommendation | ? + +-------- --------+ + -----+| <0.1 ? | Bacterial ? ? ?| Strongly ? ? ?| ? | ?| infection very | discouraged ? | Overruling: ? | ?| unlikely ? ? ? | ? | ? Clinically unstable ? ? ? + +-------- --------+ + ? High risk for adverse ? ? | <0.25 ?| Bacterial ? ? ?| Discouraged ? | ? outcome ? | ?| infection ? ? ?| ? | ? SEE IMPORTANT NOTE ?| ?| unlikely ? ? ? | ? | ? + +-------- --------+ + -----+| >=0.25 ? ? ? | Bacterial ? ? ?| Encouraged ? ?| ? | ?| infection ? ? ?| ? | ? | ?| likely ? | ? | Consider treatment failure ?+ +------- ---------+ -+ if levels does not decrease | >0.5 ? | Bacterial ? ? ?| Strongly ? ? ?| appropriately ? | ?| infection very | encouraged ? ?| ? | ?| likely ? | ? | ? + +-------- --------+ + -----+ Discontinuation of antibiotics in high-acuity patients with suspected or confirmed sepsis in Adults >= 18 years of age. + +-------- --------+ + -----+|Procalcitonin |Interpretation ?|Antibiotic ? ? |Considerations ? |ng/mL ? | ?|recommendation | ? + +-------- --------+ + -----+| <0.25 ?| Bacterial ? ? ?| Strongly ? ? ?| ? | ?| infection very | discouraged ? | Overruling: ? | ?| unlikely ? ? ? | ? | ? Clinically unstable ? ? ? + +-------- --------+ + ? High risk for adverse ? ? | <0.5 or drop | Bacterial ? ? ?| Discouraged ? | ? outcome ? | >80% from ? ?| infection ? ? ?| ? | ? SEE IMPORTANT NOTE ?| highest PCT ?| unlikely ? ? ? | ? | ? | level ?| ?| ? | ? + +-------- --------+ + -----+| >=0.5 ?| Bacterial ? ? ?| Encouraged ? ?| ? | ?| infection ? ? ?| ? | ? | ?| likely ? | ? | Consider treatment failure ?+ +------- ---------+ -+ if levels does not decrease | >1.0 ? | Bacterial ? ? ?| Strongly ? ? ?| appropriately ? | ?| infection very | encouraged ? ?| ? | ?| likely ? | ? | ? + +-------- --------+ + -----+ Percentage of drop of Procalcitonin calculation for Discontinuation of antibiotics in high-acuity patients with suspected or confirmed sepsis in Adults >= 18 years of age. ? Procalcitonin highest{}-Procalcitonin current{}Delta Procalcitonin = x100% ? Procalcitonin current {} IMPORTANT NOTE: Procalcitonin may be elevated without bacterial infection by physiologic stress related to trauma, juarez, chronic dialysis, metastatic cancer, surgery in the past seven days, malaria, some fungal infections, and some forms of vasculitis. The interpretation algorithm may not apply to patients with immunosuppression (equivalent of >10 mg of prednisone daily), HIV with CD4 cell count < 350 cells/mm3, active malignancy on systemic chemotherapy, solid organ transplant or hematopoietic stem cell transplantation, or hospital acquired pneumonia. Additionally, some clinical trials of procalcitonin have excluded patients with shock requiring vasopressor use, acute respiratory failure requiring mechanical ventilation, or those with known lung abscess/empyema. For further information please refer to:[email or web address] Lab Interpretation Normal (test code = 69627-8) [place] [id number] 15:37:48 Test Item Value Reference Range Interpretation Comments FREE T3 (test code = 4291456431) 2.34 pg/mL 2.77-5.27 L Lab Interpretation (test code = Abnormal 52213-0) [place] [id number] 15:37:48 Test Item Value Reference Range Interpretation Comments FREE T4 (test code = See_Comment [Autom ated message] 5723010727) The system [employer] generated this result transmitted ref erence range: 0.78 - 2 .20 ng/dL:. The ref erence range was not u sed to interpret this result as normal/abnor mal. Lab Interpretation (test Normal code = 77775-7) [place] [id number] 15:37:48 Test Item Value Reference Range Interpretation Comments FREE T3 (test code = 6692266565) 2.34 pg/mL 2.77-5.27 L Lab Interpretation (test code = Abnormal 20750-7) [place] [id number] 15:37:48 Test Item Value Reference Range Interpretation Comments FREE T4 (test code = See_Comment [Autom ated message] [id number]) The system [employer] generated this result transmitted ref erence range: 0.78 - 2 .20 ng/dL:. The ref erence range was not u sed to interpret this result as normal/abnor mal. Lab Interpretation (test Normal code = 19794-8) [id number] 11:47:22 Test Item Value Reference Range Interpretation Comments NT-proBNP (test code 13 pg/mL See_Comment [Autom ated = 1507392869) message] The system which generated this result transmitted reference range : <=125. The reference range was not used to interpret this result as normal/abnormal . AKSHAT (test code = AKSHAT) Biotin has been reported to cause a negative bias, interpret results relative to patient's use of biotin. Lab Interpretation Normal (test code = 80138-9) [facility] [id number] 11:47:22 Test Item Value Reference Range Interpretation Comments NT-proBNP (test code 13 pg/mL See_Comment [Autom ated = 0683746753) message] The system which generated this result transmitted reference range : <=125. The reference range was not used to interpret this result as normal/abnormal . AKSHAT (test code = AKSHAT) Biotin has been reported to cause a negative bias, interpret results relative to patient's use of biotin. Lab Interpretation Normal (test code = 51420-4) [facility]-24 11:41:39 Test Item Value Reference Range Interpretation Comments MAGNESIUM (test code = 6677138353) 1.7 mg/dL 1.7-2.4 Lab Interpretation (test code = Normal 38523-2) [facility] Test Item Value Reference Range Interpretation Comments MAGNESIUM (test code = 6732938798) 1.7 mg/dL 1.7-2.4 Lab Interpretation (test code = Normal 84449-5) [facility]OL[facility] PAN[facility] ([id number])2021-05-05 11:41:19 Test Item Value Reference Range Interpretation Comments NA (test code = 137 mmol/L 135-145 1787848560) K (test code = 3.9 mmol/L 3.5-5.0 7888300079) CL (test code = 105 mmol/L 98-108 5849914167) CO2 TOTAL (test code = 22 mmol/L 23-31 L 1632654264) AGAP (test code = 2-16 3607218877) BUN (test code = 16 mg/dL 7-23 7904962772) GLUCOSE (test code = 141 mg/dL 70-110 H 9970731520) CREATININE (test code = 0.70 mg/dL 0.50-1.04 7336008740) TOTAL BILI (test code = 0.6 mg/dL 0.1-1.3 8286607324) CALCIUM (test code = 8.7 mg/dL 8.6-10.6 0299521731) T PROTEIN (test code = 7.3 g/dL 6.3-8.2 2610629657) ALBUMIN (test code = 4.2 g/dL 3.5-5.0 1028146656) ALK PHOS (test code = 76 U/L 34-122 5496539506) ALTv (test code = 23 U/L 5-35 1742-6) AST(SGOT) (test code = 28 U/L 13-40 0323901803) eGFR (test code = mL/min/1.73m2 0445977914) AKSHAT (test code = AKSHAT) Association of Glomerular Filtration Rate (GFR) and Staging of Kidney Disease* + --+ --+ ------+| GFR (mL/min/1.73 m2) ?| With Kidney Damage ?| ?Without Kidney Damage+ --------+ --------+ +| ?>90 ?| ?Stage one ?| ? Normal ?+ ---+ ---+ -------+| ?60-89 ?| ?Stage two ?| ? Decreased GFR ? + --+ --+ ------+| ?30-59 ?| ?Stage three ?| ? Stage three ? + --+ --+ ------+| ?15-29 ?| ?Stage four ? | ? Stage four ?+ ---+ ---+ -------+| ?<15 (or dialysis) ? ?| ?Stage five ? | ? Stage five ?+ ---+ ---+ -------+ *Each stage assumes the associated GFR level has been in effect for at least three months. ?Stages 1 to 5, with or without kidney disease, indicate chronic kidney disease. Notes: Determination of stages one and two (with eGFR >59mL/min/1.73 m2) requires estimation of kidney damage for at least three months as defined by structural or functional abnormalities of the kidney, manifested by either:Pathological abnormalities or Markers of kidney damage (including abnormalities in the composition of the blood or urine or abnormalities in imaging tests). Lab Interpretation Abnormal (test code = 04661-0) [facility] ([id number])2021-05-05 11:41:19 Test Item Value Reference Range Interpretation Comments NA (test code = 137 mmol/L 135-145 0362186390) K (test code = 3.9 mmol/L 3.5-5.0 0182051031) CL (test code = 105 mmol/L 98-108 6181053290) CO2 TOTAL (test code = 22 mmol/L 23-31 L 2256495549) AGAP (test code = 2-16 3975146050) BUN (test code = 16 mg/dL 7-23 5544863726) GLUCOSE (test code = 141 mg/dL 70-110 H 6906174617) CREATININE (test code = 0.70 mg/dL 0.50-1.04 9174183752) TOTAL BILI (test code = 0.6 mg/dL 0.1-1.1 4032290709) CALCIUM (test code = 8.7 mg/dL 8.6-10.6 8472362712) T PROTEIN (test code = 7.3 g/dL 6.3-8.2 9208294149) ALBUMIN (test code = 4.2 g/dL 3.5-5.0 3244380244) ALK PHOS (test code = 76 U/L 34-122 9967292559) ALTv (test code = 23 U/L 5-35 1742-6) AST(SGOT) (test code = 28 U/L 13-40 9824159796) eGFR (test code = mL/min/1.73m2 6722636259) AKSHAT (test code = AKSHAT) Association of Glomerular Filtration Rate (GFR) and Staging of Kidney Disease* + --+ --+ ------+| GFR (mL/min/1.73 m2) ?| With Kidney Damage ?| ?Without Kidney Damage+ --------+ --------+ +| ?>90 ?| ?Stage one ?| ? Normal ?+ ---+ ---+ -------+| ?60-89 ?| ?Stage two ?| ? Decreased GFR ? + --+ --+ ------+| ?30-59 ?| ?Stage three ?| ? Stage three ? + --+ --+ ------+| ?15-29 ?| ?Stage four ? | ? Stage four ?+ ---+ ---+ -------+| ?<15 (or dialysis) ? ?| ?Stage five ? | ? Stage five ?+ ---+ ---+ -------+ *Each stage assumes the associated GFR level has been in effect for at least three months. ?Stages 1 to 5, with or without kidney disease, indicate chronic kidney disease. Notes: Determination of stages one and two (with eGFR >59mL/min/1.73 m2) requires estimation of kidney damage for at least three months as defined by structural or functional abnormalities of the kidney, manifested by either:Pathological abnormalities or Markers of kidney damage (including abnormalities in the composition of the blood or urine or abnormalities in imaging tests). Lab Interpretation Abnormal (test code = 84285-6) [facility] / [id number] 11:26:38 Test Item Value Reference Range Interpretation Comments PROTIME PATIENT (test See_Comment [Auto mated message] code = 5964-2) The system [employer] generated this result transmitted ref erence range: 12.0 - 1 4.7 Seconds. The re ference range was not u sed to interpret this result as normal/abnor mal. INR (test code = 6301-6) Nor mal INR <1.1; Warfarin Therap eutic range 2.0 to 3. 0 or 2.5 to 3.5, dep ending upon the indica tions. Lab Interpretation (test Normal code = 21809-4) [facility] / [id number] 11:26:38 Test Item Value Reference Range Interpretation Comments PROTIME PATIENT (test See_Comment [Auto mated message] code = 5964-2) The system [employer] generated this result transmitted ref erence range: 12.0 - 1 4.7 Seconds. The re ference range was not u sed to interpret this result as normal/abnor mal. INR (test code = 6301-6) Nor mal INR <1.1; Warfarin Therap eutic range 2.0 to 3. 0 or 2.5 to 3.5, dep ending upon the indica tions. Lab Interpretation (test Normal code = 53633-6) [facility] WITH [id number] 11:09:35 Test Item Value Reference Range Interpretation Comments WBC (test code = See_Comment H [Automated 6690-2) message] The sy stem which generated this result transmitted reference range : 4.30 - 11.10 10*3/?L. The reference range was not used to interpret this result as normal/abnormal . RBC (test code = See_Comment [Automated 789-8) message] The sy stem which generated this result transmitted reference range : 3.93 - 5.25 10*6/?L. The reference range was not used to interpret this result as normal/abnormal . HGB (test code = 13.0 g/dL 11.6-15.0 718-7) HCT (test code = 40.3 % 35.7-45.2 4544-3) MCV (test code = 87.8 fL 80.6-95.5 787-2) MCH (test code = 28.3 pg 25.9-32.8 785-6) MCHC (test code = 32.3 g/dL 31.6-35.1 786-4) RDW-SD (test code = 41.1 fL 39.0-49.9 97661-6) RDW-CV (test code = 12.8 % 12.0-15.5 788-0) PLT (test code = See_Comment [Automated 777-3) message] The sy stem which generated this result transmitted reference range : 166 - 358 10*3/ ?L. The reference r jj was not used to interpret this result as normal/abnormal . MPV (test code = 9.9 fL 9.5-12.9 06728-0) NRBC/100 WBC (test See_Comment [Automat ed code = 2186053444) message] The system which generated this result transmitted reference range : 0.0 - 10.0 /100 WBCs. The refer ence range was not u sed to interpret th is result as normal/abnormal . NRBC x10^3 (test code <0.01 See_Comment [Auto mated = 2033957020) message] The s ystem which generated this result transmitted reference range : 10*3/?L. The reference range was not used to interpret this result as normal/abnormal . GRAN MAT (NEUT) % 82.3 % (test code = 770-8) IMM GRAN % (test code 0.60 % = 6538226794) LYMPH % (test code = 6.0 % 736-9) MONO % (test code = 7.3 % 5905-5) EOS % (test code = 3.4 % 713-8) BASO % (test code = 0.4 % 706-2) GRAN MAT x10^3(ANC) 9.99 10*3/uL 1.88-7.09 H (test code = 8266793920) IMM GRAN x10^3 (test 0.07 10*3/uL 0.00-0.06 H code = 7591814769) LYMPH x10^3 (test code 0.73 10*3/uL 1.32-3.29 L = 731-0) MONO x10^3 (test code 0.88 10*3/uL 0.33-0.92 = 742-7) EOS x10^3 (test code = 0.41 10*3/uL 0.03-0.39 H 711-2) BASO x10^3 (test code 0.05 10*3/uL 0.01-0.07 = 704-7) Lab Interpretation Abnormal (test code = 17926-8) [facility] WITH [id number] 11:09:35 Test Item Value Reference Range Interpretation Comments WBC (test code = See_Comment H [Automated 3531-2) message] The sy stem which generated this result transmitted reference range : 4.30 - 11.10 10*3/?L. The reference range was not used to interpret this result as normal/abnormal . RBC (test code = See_Comment [Automated 148-8) message] The sy stem which generated this result transmitted reference range : 3.93 - 5.25 10*6/?L. The reference range was not used to interpret this result as normal/abnormal . HGB (test code = 13.0 g/dL 11.6-15.0 718-7) HCT (test code = 40.3 % 35.7-45.2 4544-3) MCV (test code = 87.8 fL 80.6-95.5 787-2) MCH (test code = 28.3 pg 25.9-32.8 785-6) MCHC (test code = 32.3 g/dL 31.6-35.1 786-4) RDW-SD (test code = 41.1 fL 39.0-49.9 47628-9) RDW-CV (test code = 12.8 % 12.0-15.5 788-0) PLT (test code = See_Comment [Automated 777-3) message] The sy stem which generated this result transmitted reference range : 166 - 358 10*3/ ?L. The reference r jj was not used to interpret this result as normal/abnormal . MPV (test code = 9.9 fL 9.5-12.9 02750-7) NRBC/100 WBC (test See_Comment [Automat ed code = 6690268783) message] The system which generated this result transmitted reference range : 0.0 - 10.0 /100 WBCs. The refer ence range was not u sed to interpret th is result as normal/abnormal . NRBC x10^3 (test code <0.01 See_Comment [Auto mated = 1972385412) message] The s ystem which generated this result transmitted reference range : 10*3/?L. The reference range was not used to interpret this result as normal/abnormal . GRAN MAT (NEUT) % 82.3 % (test code = 770-8) IMM GRAN % (test code 0.60 % = 6989838680) LYMPH % (test code = 6.0 % 736-9) MONO % (test code = 7.3 % 5905-5) EOS % (test code = 3.4 % 713-8) BASO % (test code = 0.4 % 706-2) GRAN MAT x10^3(ANC) 9.99 10*3/uL 1.88-7.09 H (test code = 6202761765) IMM GRAN x10^3 (test 0.07 10*3/uL 0.00-0.06 H code = 6443189600) LYMPH x10^3 (test code 0.73 10*3/uL 1.32-3.29 L = 731-0) MONO x10^3 (test code 0.88 10*3/uL 0.33-0.92 = 742-7) EOS x10^3 (test code = 0.41 10*3/uL 0.03-0.39 H 711-2) BASO x10^3 (test code 0.05 10*3/uL 0.01-0.07 = 704-7) Lab Interpretation Abnormal (test code = 58098-0) [facility] [id number] 10:23:00 Test Item Value Reference Range Interpretation Comments NT-proBNP (test code <11 See_Comment [Autom ated = 8440057712) message] The system which generated this result transmitted reference range : <=125 pg/mL. Th e reference range was not used to interpret this result as normal/abnormal . AKSHAT (test code = AKSHAT) Biotin has been reported to cause a negative bias, interpret results relative to patient's use of biotin. Lab Interpretation Normal (test code = 69991-0) [facility] [id number] 10:23:00 Test Item Value Reference Range Interpretation Comments NT-proBNP (test code <11 See_Comment [Autom ated = 6120534000) message] The system which generated this result transmitted reference range : <=125 pg/mL. Th e reference range was not used to interpret this result as normal/abnormal . AKSHAT (test code = AKSHAT) Biotin has been reported to cause a negative bias, interpret results relative to patient's use of biotin. Lab Interpretation Normal (test code = 14660-6) [facility] [place]YCOSYLATED HEMOGLOBIN (A1C)2021-05-05 10:20:54 Test Item Value Reference Range Interpretation Comments HGB A1C (test code = 5.0 % 4.0-5.7 4548-4) AKSHAT (test code = AKSHAT) Reference RangesNormal: <5.7%Prediabetes: 5.7 - 6.4%Diabetes: > 6.5% Lab Interpretation (test Normal code = 76401-4) [facility] (A1C)2021-05-05 10:20:54 Test Item Value Reference Range Interpretation Comments HGB A1C (test code = 5.0 % 4.0-5.7 4548-4) AKSHAT (test code = AKSHAT) Reference RangesNormal: <5.7%Prediabetes: 5.7 - 6.4%Diabetes: > 6.5% Lab Interpretation (test Normal code = 94276-4) [facility] [id number] 10:15:27 Test Item Value Reference Range Interpretation Comments TSH (test code = See_Comment H [Automated message] 4711369483) The system [employer] generated this result transmitted ref erence range: 0.45 - 4 .70 mIU/L. The refe rence range was not u sed to interpret this result as normal/abnor mal. Lab Interpretation (test Abnormal code = 72632-6) [facility] [id number] 10:15:27 Test Item Value Reference Range Interpretation Comments TSH (test code = See_Comment H [Automated message] 6873218708) The system [employer] generated this result transmitted ref erence range: 0.45 - 4 .70 mIU/L. The refe rence range was not u sed to interpret this result as normal/abnor mal. Lab Interpretation (test Abnormal code = 08821-6) [facility] AtlantaLIP[facility] PAN[facility] ([id number])(TOTAL CHOLESTEROL, TRIGLYCERIDES, HDL)2021-05-05 09:43:04 Test Item Value Reference Range Interpretation Comments CHOL (test code = 273 mg/dL 120-200 H 4117942724) HDL (test code = 74 mg/dL >50 3001343794) HDLC RATIO (test code = See_Comment [Au tomated message] 0102505327) The system [employer] generated this result transmit angie reference range : <=4.5. The refe rence range was not u sed to interpret th is result as normal/abnormal . TRIG (test code = 133 mg/dL 30-170 8308285073) LDL CHOL (test code = 172 mg/dL See_Comment H [Auto mated message] 09718-8) The system [employer] generated this result transmit angie reference range : <=160. The refe rence range was not u sed to interpret th is result as normal/abnormal . VLDL (test code = 27 mg/dL 5-60 4212036881) Lab Interpretation (test Abnormal code = 13651-0) [facility] (57069)(TOTAL CHOLESTEROL, TRIGLYCERIDES, HDL)2021-05-05 09:43:04 Test Item Value Reference Range Interpretation Comments CHOL (test code = 273 mg/dL 120-200 H 3498168678) HDL (test code = 74 mg/dL >50 1005470369) HDLC RATIO (test code = See_Comment [Au tomated message] 5756058634) The system [employer] generated this result transmit angie reference range : <=4.5. The refe rence range was not u sed to interpret th is result as normal/abnormal . TRIG (test code = 133 mg/dL 30-170 4916655441) LDL CHOL (test code = 172 mg/dL See_Comment H [Auto mated message] 96558-9) The system [employer] generated this result transmit angie reference range : <=160. The refe rence range was not u sed to interpret th is result as normal/abnormal . VLDL (test code = 27 mg/dL 5-60 1966599441) Lab Interpretation (test Abnormal code = 43499-7) [facility]-24 09:42:44 Test Item Value Reference Range Interpretation Comments MAGNESIUM (test code = 7542866671) 1.8 mg/dL 1.7-2.4 Lab Interpretation (test code = Normal 64277-6) [facility] Test Item Value Reference Range Interpretation Comments MAGNESIUM (test code = 0851063160) 1.8 mg/dL 1.7-2.4 Lab Interpretation (test code = Normal 87258-1) [facility]UR[facility] [id number] 09:42:24 Test Item Value Reference Range Interpretation Comments URIC ACID (test code = 9613490868) 5.6 mg/dL 2.9-6.0 Lab Interpretation (test code = Normal 43389-9) [facility] [id number] 09:42:24 Test Item Value Reference Range Interpretation Comments URIC ACID (test code = 0534094051) 5.6 mg/dL 2.9-6.0 Lab Interpretation (test code = Normal 13149-1) [facility]OL[facility] PANEL ([id number])2021-05-05 01:44:25 Test Item Value Reference Range Interpretation Comments NA (test code = 139 mmol/L 135-145 4270024244) K (test code = 4.3 mmol/L 3.5-5.0 7803892767) CL (test code = 102 mmol/L 98-108 8921042973) CO2 TOTAL (test code 25 mmol/L 23-31 = 2221678585) AGAP (test code = 2-16 4642950315) BUN (test code = 17 mg/dL 7-23 0146113597) GLUCOSE (test code = 108 mg/dL 70-110 0193510739) CREATININE (test code 0.85 mg/dL 0.50-1.04 = 4482239494) TOTAL BILI (test code 0.5 mg/dL 0.1-1.1 = 2684434673) CALCIUM (test code = 9.7 mg/dL 8.6-10.6 8717965623) T PROTEIN (test code 8.0 g/dL 6.3-8.2 = 2885265047) ALBUMIN (test code = 4.9 g/dL 3.5-5.0 7276078447) ALK PHOS (test code = 81 U/L 34-122 0624728890) ALTv (test code = 25 U/L 5-35 1742-6) AST(SGOT) (test code 28 U/L 13-40 = 3575605170) eGFR (test code = mL/min/1.73m2 7301261845) AKSHAT (test code = AKSHAT) Association of Glomerular Filtration Rate (GFR) and Staging of Kidney Disease* + + +- +| GFR (mL/min/1.73 m2) ?| With Kidney Damage ?| ?Without Kidney Damage+ ------+ ----+ ------+| ?>90 ?| ?Stage one ?| ? Normal ?+ -+ + -+| ?60-89 ?| ?Stage two ?| ? Decreased GFR ? + + +- +| ?30-59 ?| ?Stage three ?| ? Stage three ? + + +- +| ?15-29 ?| ?Stage four ? | ? Stage four ?+ -+ + -+| ?<15 (or dialysis) ? ?| ?Stage five ? | ? Stage five ?+ -+ + -+ *Each stage assumes the associated GFR level has been in effect for at least three months. ?Stages 1 to 5, with or without kidney disease, indicate chronic kidney disease. Notes: Determination of stages one and two (with eGFR >59mL/min/1.73 m2) requires estimation of kidney damage for at least three months as defined by structural or functional abnormalities of the kidney, manifested by either:Pathological abnormalities or Markers of kidney damage (including abnormalities in the composition of the blood or urine or abnormalities in imaging tests). [facility]OLIC PANEL ([id number])2021-05-05 01:44:25 Test Item Value Reference Range Interpretation Comments NA (test code = 139 mmol/L 135-145 6698540564) K (test code = 4.3 mmol/L 3.5-5.0 1959589698) CL (test code = 102 mmol/L 98-108 0310957985) CO2 TOTAL (test code 25 mmol/L 23-31 = 8992916246) AGAP (test code = 2-16 2104390155) BUN (test code = 17 mg/dL 7-23 9247375070) GLUCOSE (test code = 108 mg/dL 70-110 8161892412) CREATININE (test code 0.85 mg/dL 0.50-1.04 = 0670988011) TOTAL BILI (test code 0.5 mg/dL 0.1-1.1 = 8048486189) CALCIUM (test code = 9.7 mg/dL 8.6-10.6 8222250446) T PROTEIN (test code 8.0 g/dL 6.3-8.2 = 9782176354) ALBUMIN (test code = 4.9 g/dL 3.5-5.0 1751508029) ALK PHOS (test code = 81 U/L 34-122 5294673672) ALTv (test code = 25 U/L 5-35 1742-6) AST(SGOT) (test code 28 U/L 13-40 = 1631412046) eGFR (test code = mL/min/1.73m2 9359431365) AKSHAT (test code = AKSHAT) Association of Glomerular Filtration Rate (GFR) and Staging of Kidney Disease* + + +- +| GFR (mL/min/1.73 m2) ?| With Kidney Damage ?| ?Without Kidney Damage+ ------+ ----+ ------+| ?>90 ?| ?Stage one ?| ? Normal ?+ -+ + -+| ?60-89 ?| ?Stage two ?| ? Decreased GFR ? + + +- +| ?30-59 ?| ?Stage three ?| ? Stage three ? + + +- +| ?15-29 ?| ?Stage four ? | ? Stage four ?+ -+ + -+| ?<15 (or dialysis) ? ?| ?Stage five ? | ? Stage five ?+ -+ + -+ *Each stage assumes the associated GFR level has been in effect for at least three months. ?Stages 1 to 5, with or without kidney disease, indicate chronic kidney disease. Notes: Determination of stages one and two (with eGFR >59mL/min/1.73 m2) requires estimation of kidney damage for at least three months as defined by structural or functional abnormalities of the kidney, manifested by either:Pathological abnormalities or Markers of kidney damage (including abnormalities in the composition of the blood or urine or abnormalities in imaging tests). [facility] 01:43:44 Test Item Value Reference Range Interpretation Comments LIPASE (test code = 4898426532) 320 U/L 0-220 H Lab Interpretation (test code = Abnormal 52610-5) [facility] 01:43:44 Test Item Value Reference Range Interpretation Comments LIPASE (test code = 3766865696) 320 U/L 0-220 H Lab Interpretation (test code = Abnormal 14196-0) [facility] WITH [id number] 01:33:01 Test Item Value Reference Range Interpretation Comments WBC (test code = See_Comment H [Automated 8741-2) message] The system which generated this result transmit angie reference range : 4.30 - 11.10 10*3/?L. The reference range was not used to interpret this result as normal/abnormal . RBC (test code = See_Comment [Automated 979-8) message] The system which generated this result transmit angie reference range : 3.93 - 5.25 10*6/?L. The reference range was not used to interpret this result as normal/abnormal . HGB (test code = 14.6 g/dL 11.6-15.0 718-7) HCT (test code = 44.4 % 35.7-45.2 4544-3) MCV (test code = 87.4 fL 80.6-95.5 787-2) MCH (test code = 28.7 pg 25.9-32.8 785-6) MCHC (test code = 32.9 g/dL 31.6-35.1 786-4) RDW-SD (test code = 41.1 fL 39.0-49.9 86170-4) RDW-CV (test code = 12.7 % 12.0-15.5 788-0) PLT (test code = See_Comment H [Automated 777-3) message] The system which generated this result transmit angie reference range : 166 - 358 10*3/ ?L. The reference range was not u sed to interpret th is result as normal/abnormal . MPV (test code = 9.3 fL 9.5-12.9 L 47107-5) NRBC/100 WBC (test See_Comment [Automat ed code = 6965339914) message] The system which generated this result transmit angie reference range : 0.0 - 10.0 /100 WBCs. The reference range was not used to interpret this result as normal/abnormal . NRBC x10^3 (test code <0.01 See_Comment [Auto mated = 4700463389) message] The system which generated this result transmit angie reference range : 10*3/?L. The reference range was not used to interpret this result as normal/abnormal . GRAN MAT (NEUT) % 77.2 % (test code = 770-8) IMM GRAN % (test code 0.50 % = 2943702838) LYMPH % (test code = 10.3 % 736-9) MONO % (test code = 5.8 % 5905-5) EOS % (test code = 5.4 % 713-8) BASO % (test code = 0.8 % 706-2) GRAN MAT x10^3(ANC) 12.84 10*3/uL 1.88-7.09 H (test code = 1774655176) IMM GRAN x10^3 (test 0.09 10*3/uL 0.00-0.06 H code = 5770073136) LYMPH x10^3 (test code 1.72 10*3/uL 1.32-3.29 = 731-0) MONO x10^3 (test code 0.96 10*3/uL 0.33-0.92 H = 742-7) EOS x10^3 (test code = 0.89 10*3/uL 0.03-0.39 H 711-2) BASO x10^3 (test code 0.13 10*3/uL 0.01-0.07 H = 704-7) Lab Interpretation Abnormal (test code = 47016-3) [facility] WITH [id number] 01:33:01 Test Item Value Reference Range Interpretation Comments WBC (test code = See_Comment H [Automated 2290-2) message] The system which generated this result transmit angie reference range : 4.30 - 11.10 10*3/?L. The reference range was not used to interpret this result as normal/abnormal . RBC (test code = See_Comment [Automated 559-8) message] The system which generated this result transmit angie reference range : 3.93 - 5.25 10*6/?L. The reference range was not used to interpret this result as normal/abnormal . HGB (test code = 14.6 g/dL 11.6-15.0 718-7) HCT (test code = 44.4 % 35.7-45.2 4544-3) MCV (test code = 87.4 fL 80.6-95.5 787-2) MCH (test code = 28.7 pg 25.9-32.8 785-6) MCHC (test code = 32.9 g/dL 31.6-35.1 786-4) RDW-SD (test code = 41.1 fL 39.0-49.9 26216-2) RDW-CV (test code = 12.7 % 12.0-15.5 788-0) PLT (test code = See_Comment H [Automated 777-3) message] The system which generated this result transmit angie reference range : 166 - 358 10*3/ ?L. The reference range was not u sed to interpret th is result as normal/abnormal . MPV (test code = 9.3 fL 9.5-12.9 L 21821-0) NRBC/100 WBC (test See_Comment [Automat ed code = 7729013215) message] The system which generated this result transmit angie reference range : 0.0 - 10.0 /100 WBCs. The reference range was not used to interpret this result as normal/abnormal . NRBC x10^3 (test code <0.01 See_Comment [Auto mated = 0640984445) message] The system which generated this result transmit angie reference range : 10*3/?L. The reference range was not used to interpret this result as normal/abnormal . GRAN MAT (NEUT) % 77.2 % (test code = 770-8) IMM GRAN % (test code 0.50 % = 4565554211) LYMPH % (test code = 10.3 % 736-9) MONO % (test code = 5.8 % 5905-5) EOS % (test code = 5.4 % 713-8) BASO % (test code = 0.8 % 706-2) GRAN MAT x10^3(ANC) 12.84 10*3/uL 1.88-7.09 H (test code = 6641140770) IMM GRAN x10^3 (test 0.09 10*3/uL 0.00-0.06 H code = 7379099575) LYMPH x10^3 (test code 1.72 10*3/uL 1.32-3.29 = 731-0) MONO x10^3 (test code 0.96 10*3/uL 0.33-0.92 H = 742-7) EOS x10^3 (test code = 0.89 10*3/uL 0.03-0.39 H 711-2) BASO x10^3 (test code 0.13 10*3/uL 0.01-0.07 H = 704-7) Lab Interpretation Abnormal (test code = 16017-5) [facility]"
[2021-05-12] MEDS ORDERED: PIPERACIL/TAZO 3.375 GM VIAL IV ONE (01:58)
[2021-05-12] MEDS ORDERED: NA CHLORIDE 0.9% 100 ML IV ONE (01:58)
[2021-05-12] MEDS ORDERED: ONDANSETRON 4 MG/2 ML VIAL ONE (01:58)
[2021-05-12] MEDS ORDERED: MORPHINE 4 MG/ML SYR ONE (01:58)
[2021-05-12 02:40] LABS: Protime INR 1.04
[2021-05-12 02:41] LABS: Absolute Lymphocytes (CBC) 0.6 K/uL (0.7-4.9); Lymphocytes % 4.6 % (15.3-44.8); MPV 7.6 fL (7.6-11.3); RBC Red Blood Cell Count 4.13 M/uL (3.86-4.86)
[2021-05-12 03:24] LABS: SARS-COV-2 RT PCR NEGATIVE (NEGATIVE)
[2021-05-12 03:29] LABS: ALT/SGPT 30 U/L (12-78); AST/SGOT 18 U/L (15-37); Albumin 3.2 g/dL (3.4-5.0); Alkaline Phosphatase 62 U/L (45-117); BUN Blood Urea Nitrogen 8 mg/dL (7-18); Bicarbonate 24 mmol/L (21-32); Bilirubin Total 0.3 mg/dL (0.2-1.0); Glucose Level 121 mg/dL (74-106); Lipase 1566 U/L (73-393); Magnesium 1.6 mg/dL (1.8-2.4); NT PRO-BNP 29 pg/mL (<125); Potassium 4.4 mmol/L (3.5-5.1); Protein, Total 7.3 g/dL (6.4-8.2); Sodium Level 140 mmol/L (136-145); Troponin High Sensitivity 4.4 pg/mL (<58.9)
[2021-05-12 03:30] LABS: Bilirubin Direct < 0.1 mg/dL (0-0.2)
[2021-05-12 03:37] LABS: Blood Morphology Comment NOTED (NOT SEEN); Ovalocytes 1+; Platelet Estimate ADEQ; Polychromasia 1+
--- NOTE | 2021-05-12 03:59 | ER ---
Nurse's Notes [facility] Name: Mary Malagon Age: 45 yrs Sex: Female : 1975 Arrival Date: 05/12/2021 Time: 01:30 Bed 19 Private MD: Diagnosis: Abdominal pain, Generalized;Elevated white blood cell count;Bandemia;Abnormal serum enzyme level, unspecified-lipase;Other intestinal obstruction-ILEUS;Hypomagnesemia Presentation: 05/12 01:35 Chief complaint: EMS states: had small bowel obstruction sx last at [facility], now 5 having abd pain, N/V tonight after eating tacos. Coronavirus screen: Vaccine status: Patient reports receiving the 2nd dose of the covid vaccine. Ebola Screen: No symptoms or risks identified at this time. Initial Sepsis Screen: Does the patient meet any 2 criteria? No. Patient's initial sepsis screen is negative. Does the patient have a suspected source of infection? No. Patient's initial sepsis screen is negative. Risk Assessment: Do you want to hurt yourself or someone else? Patient reports no desire to harm self or others. Onset of symptoms was May 12, 2021. 01:35 Method Of Arrival: EMS: [facility] 01:35 Acuity: FRAN 3 5 Triage Assessment: 04:52 General: Appears in no apparent distress. Behavior is cooperative, appropriate for age. 5 Pain: Complains of pain in left lower quadrant and right lower quadrant and left upper quadrant and right upper quadrant. Neuro: No deficits noted. Level of Consciousness is awake, alert, obeys commands, Oriented to person, place, time, situation. Cardiovascular: No deficits noted. Capillary refill < 3 seconds Patient's skin is warm and dry. Respiratory: No deficits noted. Airway is patent Trachea midline Respiratory effort is even, unlabored. GI: Reports nausea, vomiting. 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 - Social history:: Smoking status: Patient/guardian denies using tobacco, the patient reports quitting approximately 20 years ago. Screenin:38 Abuse screen: Denies threats or abuse. Denies injuries from another. Nutritional 5 screening: No deficits noted. Tuberculosis screening: No symptoms or risk factors identified. Fall Risk None identified. Assessment: 04:53 Reassessment: No changes from previously documented assessment. Patient and/or family [facility] updated on plan of care and expected duration. Pain level reassessed. Vital Signs: 01:35 BP 123 / 78; Pulse 111; Resp 18; Temp 97.6(O); Pulse Ox 100% on R/A; Weight 63.5 kg; sm5 Height 5 ft. 7 in. (170.18 cm); 04:06 BP 119 / 71; Pulse 75; Resp 16; Pulse Ox 100% on R/A; sm5 04:53 BP 113 / 82; Pulse 80; Resp 16; Pulse Ox 99% on R/A; sm5 01:35 Body Mass Index 21.93 (63.50 kg, 170.18 cm) 5 ED Course: 01:30 Patient arrived in ED. mw2 01:34 Scott Esteban MD is Attending Physician. keven 01:35 Zeinab Perez RN is Primary Nurse. sm5 01:36 Triage completed. sm5 01:38 Arm band placed on right wrist. sm5 01:39 Patient has correct armband on for positive identification. Bed in low position. Call [facility] light in reach. Side rails up X2. 01:44 Maintain EMS IV. Dressing intact. Good blood return noted. Site clean \\T\\ dry. Gauge \\T\\ 5 site: 22G R wrist. 02:02 XRAY Chest (1 view) In Process Unspecified. EDMS 02:17 COVID-19/FLU A+B (Document "Date of Onset" if Symptomatic) Sent. sm5 02:36 Basic Metabolic Panel Sent. sm5 02:36 CBC with Diff Sent. sm5 02:37 LFT's Sent. sm5 02:37 Magnesium Sent. sm5 02:37 NT PRO-BNP Sent. sm5 02:37 PT-INR Sent. sm5 02:37 Troponin HS Sent. sm5 03:29 Jesse Sequeira PA is PHCP. jrMarlen 03:48 initiated a transfer with Melvin from [facility] Transfer Center. 2 04:02 CT Abd/Pelvis - IV Contrast Only In Process Unspecified. EDMS 04:17 administrative approval given by Melvin Pathak/ patient has been accepted to [address] bed 2212/ Dr. Olson accepted the patient in transfer/report to be called to [phone]. 04:53 No provider procedures requiring assistance completed. Patient transferred, IV remains [address] Administered Medications: 01:44 Drug: NS 0.9% 1000 ml Route: IV; Rate: 1 bolus; Site: right wrist; 5 02:10 Drug: morphine 4 mg Route: IVP; Site: right wrist; sm5 05:20 Follow up: Response: Pain is decreased sm5 02:10 Drug: Zofran (Ondansetron) 4 mg Route: IVP; Site: right wrist; sm5 05:20 Follow up: Response: Nausea is decreased sm5 02:10 Drug: Zosyn (piperacillin-tazobactam) 3.375 grams Route: IVPB; Infused Over: 60 mins; 5 Site: right wrist; 03:12 Follow up: IV Status: Completed infusion; IV Intake: 100ml sm5 04:05 Drug: Magnesium Sulfate 1 grams Route: IVPB; Infused Over: 1 hrs; Site: right wrist; sm5 05:19 Follow up: IV Status: Completed infusion; IV Intake: 100ml sm5 Intake: 03:12 IV: 100ml; Total: 100ml. sm5 05:19 IV: 100ml; Total: 200ml. 5 Outcome: 03:58 ER care complete, transfer ordered by . keven 04:54 Transferred to [facility], Transfer form completed. X-rays sent 5 w/ patient. 04:54 Condition: stable 04:54 Instructed on the need for transfer. 05:22 Patient left the ED. 5 Signatures: Dispatcher [employer] EDMT Scott Esteban MD MD cha Roszak, Josh, PA PA jr8 Han Lopes 2 Chris, Zeinab, RN RN sm5
--- NOTE | 2021-05-12 03:59 | EDPHYS ---
Physician Documentation [facility] Name: Mary Malagon Age: 45 yrs Sex: Female : 1975 Arrival Date: 05/12/2021 Time: 01:30 Bed 19 Private MD: CORNELIA Physician Scott Esteban HPI: 05/12 01:40 This 45 yrs old Female presents to ER via EMS with complaints of abd pain, sp keven surgery 7 days ago. 01:40 The patient presents with abdominal pain in the upper abdomen, in the lower abdomen. keven Onset: The symptoms/episode began/occurred 1 day(s) ago. The patient presents to the emergency department with nausea, vomiting, abdominal pain, of the right upper quadrant, left upper quadrant, right lower quadrant and left lower quadrant. Onset: The symptoms/episode began/occurred 1 day(s) ago. Possible causes: bad food exposure. The symptoms are aggravated by nothing. The symptoms are alleviated by nothing. Associated signs and symptoms: Pertinent positives: abdominal pain, nausea, vomiting. The symptoms do not radiate. The symptoms are described as constant, crampy. 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 - Social history:: Smoking status: Patient/guardian denies using tobacco, the patient reports quitting approximately 20 years ago. ROS: 01:42 Constitutional: Negative for fever, chills, and weight loss, Eyes: Negative for injury, keven pain, redness, and discharge, ENT: Negative for injury, pain, and discharge, Neck: Negative for injury, pain, and swelling, Cardiovascular: Negative for chest pain, palpitations, and edema, Respiratory: Negative for shortness of breath, cough, wheezing, and pleuritic chest pain, Back: Negative for injury and pain, : Negative for injury, bleeding, discharge, and swelling, MS/Extremity: Negative for injury and deformity, Skin: Negative for injury, rash, and discoloration, Neuro: Negative for headache, weakness, numbness, tingling, and seizure, Psych: Negative for depression, anxiety, suicide ideation, homicidal ideation, and hallucinations, Allergy/Immunology: Negative for hives, rash, and allergies, Endocrine: Negative for neck swelling, polydipsia, polyuria, polyphagia, and marked weight changes, Hematologic/Lymphatic: Negative for swollen nodes, abnormal bleeding, and unusual bruising. 01:42 Abdomen/GI: Positive for abdominal pain, nausea and vomiting, of the right upper quadrant, left upper quadrant, right lower quadrant and left lower quadrant. Exam: 01:42 Constitutional: This is a well developed, well nourished patient who is awake, alert, keven and in no acute distress. Head/Face: Normocephalic, atraumatic. Eyes: Pupils equal round and reactive to light, extra-ocular motions intact. Lids and lashes normal. Conjunctiva and sclera are non-icteric and not injected. Cornea within normal limits. Periorbital areas with no swelling, redness, or edema. ENT: Nares patent. No nasal discharge, no septal abnormalities noted. Tympanic membranes are normal and external auditory canals are clear. Oropharynx with no redness, swelling, or masses, exudates, or evidence of obstruction, uvula midline. Mucous membranes moist. Neck: Trachea midline, no thyromegaly or masses palpated, and no cervical lymphadenopathy. Supple, full range of motion without nuchal rigidity, or vertebral point tenderness. No Meningismus. Chest/axilla: Normal chest wall appearance and motion. Nontender with no deformity. No lesions are appreciated. Cardiovascular: Regular rate and rhythm with a normal S1 and S2. No gallops, murmurs, or rubs. Normal PMI, no JVD. No pulse deficits. Respiratory: Lungs have equal breath sounds bilaterally, clear to auscultation and percussion. No rales, rhonchi or wheezes noted. No increased work of breathing, no retractions or nasal flaring. Abdomen/GI: Soft, non-tender, with normal bowel sounds. No distension or tympany. No guarding or rebound. No evidence of tenderness throughout. Back: No spinal tenderness. No costovertebral tenderness. Full range of motion. Pelvic Exam: Normal external genitalia. Speculum exam with closed cervical os, no discharge or bleeding noted. Bimanual exam with normal adnexa, no adnexal or cervical motion tenderness. Normal uterus. Female : Normal external genitalia. 01:42 Abdomen/GI: Inspection: distension, that is moderate, Bowel sounds: diminished, in all quadrants, Palpation: moderate abdominal tenderness, in all quadrants, Liver: no appreciated palpable abnormalities, Hernia: not appreciated. 03:58 ECG was reviewed by the Attending Physician. [facility] Vital Signs: 01:35 BP 123 / 78; Pulse 111; Resp 18; Temp 97.6(O); Pulse Ox 100% on R/A; Weight 63.5 kg; 5 Height 5 ft. 7 in. (170.18 cm); 04:06 BP 119 / 71; Pulse 75; Resp 16; Pulse Ox 100% on R/A; 5 04:53 BP 113 / 82; Pulse 80; Resp 16; Pulse Ox 99% on R/A; [facility] 01:35 Body Mass Index 21.93 (63.50 kg, 170.18 cm) [facility] MDM: 01:44 Differential diagnosis: bowel obstruction, cholecystitis, Cholelithiasis, keven diverticulitis, non-specific abd pain. Data reviewed: vital signs, nurses notes, EMS record, lab test result(s), EKG, radiologic studies, CT scan, plain films. 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 Test interpretation: by ED physician or midlevel provider: ECG, plain radiologic studies. Counseling: I had a detailed discussion with the patient and/or guardian regarding: the historical points, exam findings, and any diagnostic results supporting the discharge/admit diagnosis, the presence of at least one elevated blood pressure reading (>120/80) during this emergency department visit, lab results, radiology results. 01:46 Patient medically screened. [facility] 05/12 01:40 Order name: Basic Metabolic Panel; Complete Time: 03:31 [facility] 05/12 01:40 Order name: CBC with Diff; Complete Time: 03:42 [facility] 05/12 01:40 Order name: LFT's; Complete Time: 03: [facility] 05/12 01:40 Order name: Magnesium; Complete Time: 03:31 [facility] 05/12 01:40 Order name: NT PRO-BNP; Complete Time: 03:31 [facility] 05/12 01:40 Order name: PT-INR; Complete Time: 03:31 [facility] 05/12 01:40 Order name: Troponin HS; Complete Time: 03:31 [facility] 05/12 01:40 Order name: XRAY Chest (1 view) [facility] 05/12 01:40 Order name: Lipase; Complete Time: 03:31 [facility] 05/12 01:40 Order name: CT Abd/Pelvis - IV Contrast Only [facility] 05/12 01:50 Order name: COVID-19/FLU A+B (Document "Date of Onset" if Symptomatic); Complete Time: mw2 03:05/12 02:46 Order name: Manual Differential; Complete Time: 03:42 EDMS 05/12 01:40 Order name: EKG; Complete Time: 01:40 [facility] 05/12 01:40 Order name: Cardiac monitoring; Complete Time: 02:48 [facility] 05/12 01:40 Order name: EKG - Nurse/Tech; Complete Time: 02:17 [facility] 05/12 01:40 Order name: IV Saline Lock; Complete Time: 01:44 [facility] 05/12 01:40 Order name: Labs collected and sent; Complete Time: 02:36 [facility] 05/12 01:40 Order name: O2 Per Protocol; Complete Time: 01:44 [facility] 05/12 01:40 Order name: O2 Sat Monitoring; Complete Time: 01:44 [facility] 05/12 01:40 Order name: Urine Dipstick-Ancillary (obtain specimen) [facility] EC:58 Rate is 100 beats/min. Rhythm is regular. QRS [place] is Normal. [place] interval is normal. [facility] QRS interval is normal. QT interval is normal. No Q waves. T waves are Normal. No ST changes noted. Clinical impression: NSR w/ Non-specific ST/T Changes and No evidence of ischemia. Interpreted by me. Reviewed by me. Administered Medications: 01:44 Drug: NS 0.9% 1000 ml Route: IV; Rate: 1 bolus; Site: right wrist; sm5 02:10 Drug: morphine 4 mg Route: IVP; Site: right wrist; sm5 05:20 Follow up: Response: Pain is decreased sm5 02:10 Drug: Zofran (Ondansetron) 4 mg Route: IVP; Site: right wrist; 5 05:20 Follow up: Response: Nausea is decreased 5 02:10 Drug: Zosyn (piperacillin-tazobactam) 3.375 grams Route: IVPB; Infused Over: 60 mins; sm5 Site: right wrist; 03:12 Follow up: IV Status: Completed infusion; IV Intake: 100ml sm5 04:05 Drug: Magnesium Sulfate 1 grams Route: IVPB; Infused Over: 1 hrs; Site: right wrist; 5 05:19 Follow up: IV Status: Completed infusion; IV Intake: 100ml 5 Disposition Summary: 05/12/21 03:58 Transfer Ordered Transfer Location: [facility] Reason: Higher level of care keven Condition: Fair keven Problem: new keven Symptoms: have improved keven Accepting Physician: to [facility](05/12/21 05:22) 5 Diagnosis - Abdominal pain, Generalized keven - Elevated white blood cell count keven - Bandemia keven - Abnormal serum enzyme level, unspecified - lipase keven - Other intestinal obstruction - ILEUS keven - Hypomagnesemia keven Forms: - Medication Reconciliation Form keven - SBAR form keven Signatures: Dispatcher [employer] EDScott Smith MD MD cha Roszak, Josh, PA PA jr8 Venu Michael, PURCHASING DIRECTOR-C PURCHASING DIRECTOR-Cla1 Zeinab Perez RN RN 5 Corrections: (The following items were deleted from the chart) 04:13 03:58 to [facility] 05:22 04:13 to [facility]5
[2021-05-12] MEDS ORDERED: MAGNESIUM SULFATE 1 gm IVPB 1 GM/100 ML BAG IV ONE (04:02)
[2021-05-12 05:34] VITALS: TEMP 97.6
[2021-05-12 05:37] VITALS: BP 113/82; O2SAT 99
--- NOTE | 2021-05-12 09:32 | RAD REPORT ---
EXAM DESCRIPTION: CT - Abdomen Pelvis W Contrast - 05/12/2021 5:12 am CLINICAL HISTORY: 45 years Female ABD PAIN, history of multiple bowel surgeries, the patient reportranda jay underwent abdominal surgery approximately one week ago to lyse adhesions. TECHNIQUE: Axial CT imaging of the abdomen and pelvis was performed following the administration of intravenous contrast.. Oral contrast was not administered. Sagittal and coronal reconstructed image s were then performed. The CT study is performed according to ALARA (as low as reasonably achievabl e) or ALARA/IMAGE GENTLY, with automatic adjustment of mA and/or kV according to patient size. Performed on: 05/12/2021 at 3:55 AM. COMPARISON: CT abdomen and pelvis with contrast performed on 02/10/2021 FINDINGS: Lung bases: The lung bases are clear. There is minimal bibasilar atelectasis and/or fibros is. Liver: The liver measures approximately 18 cm in craniocaudal dimension. No focal hepatic abnormaliti es are identified. Liver attenuation is within normal limits. The hepatic and portal veins are patent . Spleen: The spleen is normal is size, configuration and attenuation. Gallbladder and bile duct: The gallbladder is well distended and unremarkable. There is no biliary ductal dilatation. Pancreas: The pancreas is grossly normal in size and configuration. Adrenal Glands: The adrenal glands are normal in size and configuration. Kidneys: The kidneys are normal in size and configuration. There is no evidence of hydronephrosis. Th ere is no evidence of nephrolithiasis. There is a 7 mm left renal cortical cyst. Stomach: The stomach is moderately distended with fluid and there may be a small sliding-type hiatal hernia. Bowel: There are multiple dilated fluid-filled small bowel loops demonstrating bowel wall thickening with associated mesenteric edema and free fluid concerning for a possible distal small bowel obstruct ion versus severe enteritis. There are postsurgical changes of the small bowel within the anterior mi d pelvis. There is a surgical suture line at this site and there is a oval radiopaque foreign body me asuring approximately 1.7 x 1.4 0.8 cm, similar when compared to the prior study. The etiology of thi s is not certain. A second additional radiopaque foreign body was present in this location on the alena or study which is no longer identified. There is also fluid within the ascending colon and cecum whic h can be seen with diarrheal disease and enteritis. Appendix: The appendix is not identified on this examination and may be surgically absent. Free air: There is no evidence of free air. Free fluid: There is a small volume of low density ascites. There is also diffuse mesenteric edema. Vasculature: The aorta is normal in caliber and contour. The inferior vena cava is grossly unremarkab le. There are mild atherosclerotic calcifications along the abdominal aorta and iliac arteries. Lymphadenopathy: No pathologic lymphadenopathy is identified. Bladder: The bladder is well distended and smooth in contour. Reproductive: The uterus is surgically absent. Bones: No acute osseous abnormalities are identified. Soft tissues: No acute soft tissue abnormalities are identified. Skin closure taryn are present kvng ng the midline of the abdomen in vertical fashion IMPRESSION: 1. There are multiple dilated fluid-filled small bowel loops demonstrating bowel wall thickening with associated mesenteric edema and free fluid concerning for a possible distal small bow el obstruction versus severe enteritis. 2. There is also fluid within the ascending colon and cecum which can be seen with diarrheal diseas e and enteritis. 3. There are postsurgical changes of the small bowel within the anterior mid pelvis. There is a bin gical suture line at this site and there is a oval radiopaque foreign body measuring approximately 1. 7 x 1.4 cm, similar when compared to the prior study. The etiology of this is not certain. A second a dditional radiopaque foreign body was present in this location on the prior study which is no longer identified. These critical findings were discussed with Dr. Esteban on 05/12/2021 at 4:38 AM central time. Electronically signed by: Martha Colon DO 05/12/2021 4:43 AM CDT Due to temporary technical issues with the PACS/Fluency reporting system, reports are being signed by the in house radiologist without review as a courtesy to ensure prompt reporting. The interpreting r adiologist is fully responsible for the content of the report.
--- NOTE | 2021-05-12 09:46 | RAD REPORT ---
EXAM DESCRIPTION: RAD - Chest Single View - 05/12/2021 1:59 am CLINICAL HISTORY: 45 years, Female, ABDOMINAL DISTENTION COMPARISON: None. FINDINGS: Single view of the chest was obtained portable. No prior films are available for compariso n. The cardiomediastinal silhouette demonstrate to be unremarkable. For heart is not enlarged. The thoracic aorta is unremarkable. Costophrenic angles are sharp. No areas of consolidation or masses are seen. The rest of the soft tissue and bony structures demonstrate to be unremarkable. IMPRESSION: NO ACUTE CARDIOPULMONARY DISEASE SEEN. Electronically signed by: Malachi Hunter MD 05/12/2021 2:08 AM CDT Due to temporary technical issues with the PACS/Fluency reporting system, reports are being signed by the in house radiologist without review as a courtesy to ensure prompt reporting. The interpreting r adiologist is fully responsible for the content of the report.
--- NOTE | 2021-05-16 11:26 | EKG ---
Test Date: 2021-05-12 Test Time: 02:10:50 Cvt Rn: AV MEASUREMENT RESULTS: Intervals: Rate: 100 VT: 138 QRSD: 74 QT: 344 QTc: 443 [place]: P: 59 VT: 138 QRS: 55 T: 55 INTERPRETIVE STATEMENTS: Normal sinus rhythm Possible Left atrial enlargement Borderline ECG Compared to ECG 02/10/2021 18:54:47 No significant changes Electronically Signed On 05-16-21 11:14:26 CDT by Nick Andrade
== END 2021-05-12 05:22 | disposition short-term general hospital (02) ==
LOC: ER 01:28
DX: K56.699 Other intestinal obstruction unspecified as to partial versus complete obstruction (principal); E83.42 Hypomagnesemia; D72.825 Bandemia; R74.8 Abnormal levels of other serum enzymes; Z98.890 Other specified postprocedural states; E03.9 Hypothyroidism, unspecified; Z20.822 Contact with and (suspected) exposure to COVID-19
CPT/HCPCS: 96365; 96367; 93005; 85025; 80048; 36415; 83735; 85610; 80076; 84484; 83690; 83880; 0240U; 74177; 71045; 96375; 99285; Q9967; J2543; J3475; J2405

== ENCOUNTER 2022-03-06 11:18 | Emergency (ER) | payer BC ==
--- OUTSIDE RECORDS SUMMARY | 2022-03-06 11:24 | XMS REPORT | Continuity of Care Document ---
:1975 Author Organization [facility] t Address [address] [place] [address] Care Team Providers Name Role Phone Thanh Benz Primary Care Physician Thanh Benz Attending Clinician Unavailable Celsa Anton RN Attending Clinician STACIA MCCLENDON Attending Clinician Unavailable [place] MD Attending Clinician Stacia Mcclendon DO Attending Clinician ELIZABETH WEBB Attending Clinician Unavailable Elizabeth Webb MD Attending Clinician Doctor Unassigned, [place] Attending Clinician Unavailable Ana Olson MD Attending Clinician ANA OLSON Attending Clinician Unavailable Perry Hoskins DO Attending Clinician Marleni MANCIA, Alaina Attending Clinician Unavailable SPARKLE MISTRY Attending Clinician Unavailable Only, Ang Db Test Attending Clinician Unavailable Sparkle Mistry MD Attending Clinician JOSEPHINE CROOKS Attending Clinician Unavailable ARA KANG Attending Clinician Unavailable Josephine Crooks MD Attending Clinician Pob, [facility] Attending Clinician Unavailable REBECCA KIRK Attending Clinician Unavailable NIALL PAEZ Attending Clinician Unavailable THANH BENZ Admitting Clinician Unavailable STACIA MCCLENDON Admitting Clinician Unavailable Stacia Mcclnedon DO Admitting Clinician ANA OLSON Admitting Clinician Unavailable Ana Olson MD Admitting Clinician NIALL PAEZ Admitting Clinician Unavailable Payers Payer Name Policy Type Policy Number Effective Date Expiration Date Vamshi sarmiento Blue [place] 6 [id number] 2020 Common Spiri t Blue [facility] 00:00:[address] [place] [address] Problems Condition Condition Condition Status Onset Resolution Last Treating Co mments Source Name Details Category Date Date Treatment Clinician Date 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 00:00: [place] protein-ca protein-ca 00 Me dical noy noy Branch malnutriti malnutriti on on Abdominal Abdominal Disease Active Uni vers pain pain 3-31 ity of 00:00: [address] SBO (small SBO (small Disease Active U nivers bowel bowel 3-23 ity of obstructio obstructio 00:00: Te candelario n) n) [address] [place] [address] [phone] Anxiety Problem Common with [facility] Migraine Migraines Problem Comm on [facility] [id number] Hyperchole Problem Com mon sterolemia [facility] Asthma Asthma Problem Common [facility] [id number] Mixed Problem Common hyperlipid Spirit emia - [facility] Allergic Allergic Problem Commo n rhinitis rhinitis Spirit due to due to - [facility] pollen pollen [facility] Irritable Irritable Problem Com mon bowel bowel Spirit syndrome syndrome - [facility] (IBS) [facility] Hyperlipid Borderline Problem C ommon aemia hyperlipid Spirit emia [facility] [id number] Mixed Problem Common stress and Spirit urge - [facility] urinary [facility] Chronic +5th digit Problem Comm on kidney eff Spirit disease 11/13/19*[facility] stage 3 age 3 [facility] kidney [facility] disease [facility] Hypothyroi Hypothyroi Problem C ommon dism dism Spirit [facility] Cathy' Cathy' Problem C ommon s disease s disease Spir it [facility] [id number] GERD Problem Common without Spirit esophagiti - [facility] s [facility] Allergies, Adverse Reactions, Alerts Allergy Allergy Status Severity Reaction(s) Onset Inactive Treating Comm ents Source Name Type Date Date Clinician NO KNOWN Drug Active Univers ALLERGIE Class ity of S [facility] Social History Social Habit Start Date Stop Date Quantity Comments Source History of Tobacco Common Spirit - Use [facility] Sex Assigned At Common Sp levon - [facility] Exposure to 2021-08-12 2021-08-22 Not sure [facility] SARS-CoV-2 (event) 00:00:00 04:36:00 [facility] Tobacco use and 2021-08-22 2021-08-22 Former smokeless Uni versity of exposure 00:00:00 00:00:00 tobacco user [facility] Branch Cigarettes smoked 2021-08-22 2021-08-22 Univers ity of current (pack per 00:00:00 00:00:00 [facility] ) - Reported Branch Cigarette 2021-08-22 2021-08-22 University of pack-years 00:00:00 00:00:00 [facility] Alcohol intake 2021-08-22 2021-08-22 Current drinker Unive rsity of 00:00:00 00:00:00 of alcohol [facility] (finding) Branch Education 2021-05-12 2021-05-12 21 University of 00:00:00 00:00:00 [facility] Smoking Status Start Date Stop Date Source Current every day [facility] smoker Medical Branch Former Smoker 2022-01-13 00:00:00 2022-01-13 00:00:00 Common S pirit - [facility] nter Medications Ordered Filled Start Stop Current Ordering Indication Dosage Frequency Signature Comments Components Source Medication Medication Date Date Medication? Clinician (SIG) Name Name Amoxicillin Amoxicillin 2021-02- No 1{table BID Amoxicilli -Pot -Pot 03-16 t} n-Pot Clavulanate Clavulanate 00:00: 00:00 Clavulanat 875-125 MG 875-125 MG 00 :00 e 875-125 MG Bupivicaine Bupivicaine 2021-02 No 2.5mg Common [place] Topsham 0-18 Spirit 00:00: - [facility] Depo-Medrol Depo-Medrol 2021-02 No 40mg Common (Methylpred (Methylpred 0-18 S pirit nisolone) nisolone) 00:00: - C HI 40mg 40mg 00 [facility] Bupivicaine Bupivicaine 2021-02 No 2.5mg Common Topsham Topsham 0-18 Spirit 00:00: - [facility] Depo-Medrol Depo-Medrol 2021-02 No 40mg Common (Methylpred (Methylpred 0-18 S pirit nisolone) nisolone) 00:00: - C HI 40mg 40mg 00 [facility] Bupivicaine Bupivicaine 2021-02 No 2.5mg Common Topsham Topsham 0-18 Spirit 00:00: - [facility]I [facility] Depo-Medrol Depo-Medrol 2021-02 No 40mg Common (Methylpred (Methylpred 0-18 S pirit nisolone) nisolone) 00:00: - C HI 40mg 40mg 00 [facility] Bupivicaine Bupivicaine 2021-02 No 2.5mg Common Topsham Topsham 0-18 Spirit 00:00: - [facility]I [facility] Depo-Medrol Depo-Medrol 2021-02 No 40mg Common (Methylpred (Methylpred 0-18 S pirit nisolone) nisolone) 00:00: - C HI 40mg 40mg 00 [facility] Bupivicaine Bupivicaine 2021-02 No 2.5mg Common Topsham Topsham 0-18 Spirit 00:00: - CHI 00 [facility] Depo-Medrol Depo-Medrol 2021-02 No 40mg Common (Methylpred (Methylpred 0-18 S pirit nisolone) nisolone) 00:00: - C HI 40mg 40mg 00 [facility] Bupivicaine Bupivicaine 2021-02 No 2.5mg Common Topsham Topsham 0-18 Spirit 00:00: - [facility]I 00 [facility] Depo-Medrol Depo-Medrol 2021-02 No 40mg Common (Methylpred (Methylpred 0-18 S pirit nisolone) nisolone) 00:00: - C HI 40mg 40mg 00 [facility] Bupivicaine Bupivicaine 2021-02 No 2.5mg Common Topsham Topsham 0-18 Spirit 00:00: - [facility] Depo-Medrol Depo-Medrol 2021-02 No 40mg Common (Methylpred (Methylpred 0-18 S pirit nisolone) nisolone) 00:00: - C HI 40mg 40mg 00 [facility] Atorvastati Atorvastati No 1{table QD Atorvastat n Calcium n Calcium 727 t} in Calcium 20 MG 20 MG 00:00: 20 MG 00 famotidine Yes 20mg 20 mg, Unive rs (PEPCID AC) 7-14 Oral, BID, it y of tablet 20 13:00: [place] mg 00 on [facility] Medical 08/25/21 at Branch 0800, Until [facility], Routine [place]-3-DHA Yes Take by Uni vers -EPA-Fish 7-14 mouth. ity of Oil 1,200 11:49: [place] (144-216) 10 Medical mg Cap [place] Cholecalcif Yes Take by Uni vers travis, 7-14 mouth. ity of Vitamin D3, 11:49: [place] 125 mcg 10 Medical (5,000 Branch unit) tablet busPIRone Yes 10mg Take 10 mg Un omega 10 mg 7-14 by mouth 2 ity of tablet 11:49: (two) [place] 10 times Medical daily. [place] SUMAtriptan 0 Yes 100mg Take 100 U nivers 50 mg 7-14 mg by ity of tablet 11:49: mouth [place] 10 every Medical evening as Branch needed for Migraine. nortriptyli 0 Yes 100mg Take 100 U nivers ne 50 mg 7-14 mg by ity of capsule 11:49: mouth at [place] 10 bedtime. Medical Branch albuterol 0 Yes 1{puff} Inhale 1 U nivers sulfate 7-14 Puff 3 ity of (PROVENTIL 11:49: (three) [place] HFA INHALE) 10 times Medical daily as Branch needed. levothyroxi 0 Yes 1{capsu Take 1 U nivers ne 100 mcg 7-14 le} capsule by ity of tablet 11:49: mouth in [place] 10 the Medical morning. Branch [place]-3-DHA Yes Take by Uni vers -EPA-Fish 7-14 mouth. ity of Oil 1,200 11:49: [place] (144-216) 10 Medical mg Cap Branch Cholecalcif Yes Take by Uni vers travis, 7-14 mouth. ity of Vitamin D3, 11:49: [place] 125 mcg 10 Medical (5,000 Branch unit) tablet busPIRone 0 Yes 10mg Take 10 mg Un omega 10 mg 7-14 by mouth 2 ity of tablet 11:49: (two) [place] 10 times Medical daily. Branch SUMAtriptan Yes 100mg Take 100 U nivers 50 mg 7-14 mg by ity of tablet 11:49: mouth [place] 10 every Medical evening as Branch needed for Migraine. nortriptyli 0 Yes 100mg Take 100 U nivers ne 50 mg 7-14 mg by ity of capsule 11:49: mouth at [place] 10 bedtime. Medical Branch albuterol 0 Yes 1{puff} Inhale 1 U nivers sulfate 7-14 Puff 3 ity of (PROVENTIL 11:49: (three) [place] HFA INHALE) 10 times Medical daily as Branch needed. levothyroxi 2021-0 Yes 1{capsu Take 1 U nivers ne 100 mcg 7-14 le} capsule by ity of tablet 11:49: mouth in [place] 10 the Medical morning. Branch levothyroxi Yes 100ug 100 mcg, U nivers ne 08-25 Oral, ity of (SYNTHROID) 11:00: QAM-0600, [place] tablet 100 00 First dose Med ical mcg on Radha Branch 08/25/21 at 0600, Until Discontinu ed, Routine famotidine 2021- No [id number] 20mg Take 1 Univers 20 mg 08-25 tablet by ity of tablet 00:00: 04:59 mouth in [place] 00 :00 the Medical morning Branch and 1 tablet in the evening. Do all this for 30 days. famotidine 2021- No [id number] 20mg Take 1 Univers 20 mg 08-25 tablet by ity of tablet 00:00: 04:59 mouth in [place] 00 :00 the Medical morning Branch and 1 tablet in the evening. Do all this for 30 days. D5W 0.9% 2021- No IV Univers NaCl (NS) 1 08-23 Infusion, it y of L + KCL 20 18:30: 20:54 at 125 [place] mEq 00 :31 mL/hr, [facility] CONTINUOUS Branch , Starting on Sun08/23/21 at 1330, Until Sun08/24/21 at 1554, Routine magnesium 2021- No 2g 2 g, IV Univ ers sulfate in 08-23 Piggyback, it y of water 2 18:30: 19:09 Administer Shawn as gram/50 mL 00 :00 over 60 Medica l (4 %) Minutes, Branch infusion 2 ONCE, 1 g dose, On Sun08/23/21 at 1330, Routine magnesium 2021- No 2g 2 g, IV Univ ers sulfate in 08-23 Piggyback, it y of water 2 15:15: 15:19 Administer Shawn as gram/50 mL 00 :00 over 60 Medica l (4 %) Minutes, Branch infusion 2 ONCE, 1 g dose, On Sun08/23/21 at 1015, Routine phenoL 2021-0 Yes 1{spray 1 [place], Univ ers (SORE 08-23 } Oral, PRN, ity of THROAT 14:40: Starting [place] (PHENOL)) 02 on Tue Medical 1.4 % spray 08/23/21 at Br anch bottle 1 0940, [place] Until Discontinu ed, Routine, Sore throat ketorolac Yes 30mg 30 mg, Univer s (TORADOL) 08-23 Slow IV ity of injection 11:29: Push, [place] 30 mg 51 Q6HPRN, 4 Medical doses, Branch Starting on Sun08/23/21 at 0629, Until Discontinu ed, ENMANUEL, Pain (scale 4-6) levothyroxi No 75ug 75 mcg, Un omega ne 08-23 Intravenou ity of (SYNTHROID) 11:00: 03:57 s, [place] injection 00 :14 QAM-0600, Medic al 75 mcg 7 doses, Branch First dose on Sun08/23/21 at 0600, Last dose on Sun08/29/21 at 0600, Routine bisacodyL No 10mg 10 mg, Unive rs (DULCOLAX) 08-22 Rectal, ity o f suppository 23:15: 22:25 ONCE, 1 [place] 10 mg 00 :00 dose, On Medical Sun [place] 08/22/21 at 1815, Routine enoxaparin Yes 40mg 40 mg, Unive rs (LOVENOX) 08-22 Subcutaneo ity of injection 22:00: us, DAILY, [place] 40 mg 00 First dose Medical on Sun [place] 08/22/21 at 1700, Until Discontinu ed, Routine bisacodyL Yes 10mg 10 mg, Univer s (DULCOLAX) 08-22 Rectal, ity of suppository 19:59: QHSPRN, Shawn as 10 mg 39 Starting Medical on Sun [place] 08/22/21 at 1459, Until Discontinu ed, Routine, Constipati on piperacilli No 3.375g 3.375 g, Univers n-tazobacta 08-22 IV ity of m (ZOSYN) 17:45: 17:16 Piggyback, [place] 3.375 g in 00 :05 Q8H ABX, Medic al NaCl 0.9% First dose Bran ch (NS) 50 mL on Sun MINI-BAG 08/22/21 at 1245, Until Discontinu ed, Administer over 4 Hours, 50 mL
Reas on for Anti-Infec tive: Empiric Therapy for Suspected Infection< br>Empi eladia Therapy Site: Abdominal< br>Duratio n of therapy: 7 days LORazepam Yes .5mg 0.5 mg, Unive rs (ATIVAN) 08-22 Slow IV ity of injection 17:41: Push, [place] 0.5 mg 38 QHSPRN, Medical Starting Branch on Sun08/22/21 at 1241, Until Discontinu ed, Routine, Anxiety, Agitation< br>Is the medication being used for status epilepticu s? No ketorolac Yes 15mg 15 mg, Univer s (TORADOL) 08-22 Slow IV ity of injection 17:40: Push, [place] 15 mg 52 Q6HPRN, Medical Starting Branch on Sun08/22/21 at 1240, Until Discontinu ed, Routine, Pain (scale 4-6) ketorolac 2021- No 30mg 30 mg, Unive rs (TORADOL) 08-22 Slow IV ity of injection 17:30: 16:50 Push, [place] 30 mg 00 :00 ONCE, 1 Medical dose, On Branch Sun08/22/21 at 1230, Routine famotidine 2021- No 20mg 20 mg, Univ ers (PEPCID 08-22 Slow IV ity of (PF)) 15:45: 03:57 Push, [place] injection 00 :14 Q12H, Medical 20 mg First dose Branch on Sun08/22/21 at 1045, Until Discontinu ed, Routine pantoprazol 2021- No 40mg 40 mg, Uni vers e 08-22 Slow IV ity of (PROTONIX) 13:00: 15:54 Push, [place] injection 00 :18 Q12H, Medical 40 mg First dose Branch on Sun08/22/21 at 0800, Until Discontinu ed morpHINE (4 2021- No 4mg 4 mg, Slow Univers mg/mL) 08-22 IV Push, ity of injection 4 10:15: 09:05 ONCE, 1 [place] mg 00 :00 dose, On Medical Mon Branch 08/22/21 at 0515, Routine D5W 0.45% No 1000mL at 100 Uni vers NaCl 08-2212 mL/hr, ity of (1/2NS) IV 10:00: 17:15 1,000 mL, [place] infusion 00 :45 IV Medical 1,000 mL Infusion, Branch CONTINUOUS , Starting on Sun08/22/21 at 0500, Until Sun08/23/21 at 1215, Routine ondansetron Yes 4mg 4 mg, Slow Univers (ZOFRAN 08-22 IV Push, ity of (PF)) 09:11: Q6HPRN, [place] injection 4 56 Starting Medi agapito mg on [facility] Branch 08/22/21 at 0411, Until Discontinu ed, ENMANUEL, Nausea and Vomiting (N/V) LORazepam 2021- No 1mg 1 mg, Slow U nivers (ATIVAN) 08-22 IV Push, ity of injection 1 08:30: 08:39 ONCE, 1 [place] mg 00 :00 dose, On Medical Mon Branch 08/22/21 at 0330, STAT
Is the medication being used for status epilepticu s? No piperacilli 2021- No 3.375g 3.375 g, Univers n-tazobacta 08-22 IV ity of m (ZOSYN) 08:15: 09:01 Piggyback, [place] 3.375 g in 00 :00 ONCE, 1 Medica l NaCl 0.9% dose, On Branch (NS) 50 mL Mon MINI-BAG 08/22/21 at 0315, Administer over 30 Minutes, 50 mL
R patrice for Anti-Infec tive: Documented Infection< br>Documen angie Infection Site: Abdominal< br>Duratio n of Therapy: Other (see Comments) ketorolac 2021- No 30mg 30 mg, Unive rs (TORADOL) 08-22 Slow IV ity of injection 07:45: 06:45 Push, [place] 30 mg 00 :00 ONCE, 1 Medical dose, On Branch [facility] 08/22/21 at 0245, ENMANUEL ondansetron 2021- No 4mg 4 mg, Slow Univers (ZOFRAN 08-22 IV Push, ity of (PF)) 07:45: 06:45 ONCE, 1 [place] injection 4 00 :00 dose, On Medi agapito mg [facility] 08/22/21 at 0245, ENMANUEL NaCl 0.9% 2021- No 1000mL at 999 Uni vers (NS) bolus 08-22 mL/hr, ity of infusion 07:45: 09:00 1,000 mL, Shawn as 1,000 mL 00 :00 IV Medical Infusion, Branch ONCE, 1 dose, On [facility] 08/22/21 at 0245, STAT iopamidol 2021- No [id number] 50mL 50 mL, Univers (ISOVUE 08-22 Intravenou ity o f 370-500 mL) 07:01: 07:01 s, ONCE, 1 [place] injection 00 :00 dose, On Medica l 50 mL [facility] 08/22/21 at 0215, Routine Sulfamethox Sulfamethox 2021- No 1{table BID Sulfametho azole-Trime azole-Trime 07-20 06-18 t} xazole-Tri thoprim thoprim 00:00: 00:00 methoprim 800-160 MG 800-160 MG 00 :00 800-160 MG [place]-3-DHA 0 Yes Take by Uni vers -EPA-Fish 4-21 mouth. ity of Oil (FISH 10:44: [place] OIL) 1,200 00 Medical (144-216) Branch mg Cap Cholecalcif 0 Yes Take by Uni vers travis, 4-21 mouth. ity of Vitamin D3, 10:44: [place] (VITAMIN 00 Medical D3) 125 mcg Branch (5,000 unit) tablet busPIRone 0 Yes 10mg Take 10 mg Un omega 10 mg 4-21 by mouth 2 ity of tablet 10:44: (two) [place] 00 times Medical daily. Branch SUMAtriptan 0 Yes 100mg Take 100 U nivers 50 mg 4-21 mg by ity of tablet 10:44: mouth [place] 00 every Medical evening as Branch needed for Migraine. nortriptyli 0 Yes 100mg Take 100 U nivers ne 50 mg 4-21 mg by ity of capsule 10:44: mouth at [place] 00 bedtime. Medical Branch albuterol 2-0 Yes 1{puff} Inhale 1 U nivers sulfate 4-21 Puff 3 ity of (PROVENTIL 10:44: (three) [place] HFA INHALE) 00 times Medical daily as Branch needed. [place]-3-DHA 2021-0 Yes Take by Uni vers -EPA-Fish 4-21 mouth. ity of Oil (FISH 10:44: [place] OIL) 1,200 00 Medical (144-216) Branch mg Cap Cholecalcif 2021-0 Yes Take by Uni vers travis, 4-21 mouth. ity of Vitamin D3, 10:44: [place] (VITAMIN 00 Medical D3) 125 mcg Branch (5,000 unit) tablet busPIRone 2021-0 Yes 10mg Take 10 mg Un omega 10 mg 4-21 by mouth 2 ity of tablet 10:44: (two) [place] 00 times Medical daily. Branch SUMAtriptan 2021-0 Yes 100mg Take 100 U nivers 50 mg 4-21 mg by ity of tablet 10:44: mouth [place] 00 every Medical evening as Branch needed for Migraine. nortriptyli 2021-0 Yes 100mg Take 100 U nivers ne 50 mg 4-21 mg by ity of capsule 10:44: mouth at [place] 00 bedtime. Medical Branch albuterol 2021-0 Yes 1{puff} Inhale 1 U nivers sulfate 4-21 Puff 3 ity of (PROVENTIL 10:44: (three) [place] HFA INHALE) 00 times Medical daily as Branch needed. [place]-3-DHA 2-0 Yes Take by Uni vers -EPA-Fish 4-21 mouth. ity of Oil (FISH 10:44: [place] OIL) ,200 00 Medical (144-216) Branch mg Cap Cholecalcif 202-0 Yes Take by Uni vers travis, 4-21 mouth. ity of Vitamin D3, 10:44: [place] (VITAMIN 00 Medical D3) 125 mcg Branch (5,000 unit) tablet levothyroxi 2021-0 2022- No [id number] 100ug Take 1 Univers ne 100 mcg 4-13 05-14 tablet by ity of tablet 00:00: 04:59 mouth [place] 00 :00 every Medical morning Branch for 30 days. foLIC acid 2021- No [id number] 1mg Take 1 Univers 1 mg tablet 05-25 tablet by it y of 00:00: 04:59 mouth [place] 00 :00 daily for Medical 30 days. Branch levothyroxi 2021- No [id number] 100ug Take 1 Univers ne 100 mcg 05-25 tablet by ity of tablet 00:00: 04:59 mouth [place] 00 :00 every Medical morning Branch for 30 days. foLIC acid 2021- No [id number] 1mg Take 1 Univers 1 mg tablet 05-25 tablet by it y of 00:00: 04:59 mouth [place] 00 :00 daily for Medical 30 days. Branch pantoprazol 2021- No [id number] 40mg Take 1 Univers e 40 mg EC 05-24 tablet by ity of tablet 00:00: 04:59 mouth [place] 00 :00 daily for Medical 30 days. Branch pantoprazol 2021- No [id number] 40mg Take 1 Univers e 40 mg EC 05-24 tablet by ity of tablet 00:00: 04:59 mouth [place] 00 :00 daily for Medical 30 days. Branch HYDROcodone Yes [id number] 1{tbl} Take 1 Un omega -acetaminop 3-28 tablet by ity of hen 5-325 00:00: mouth [place] mg tablet 00 every 6 Medical (six) Branch hours as needed for Pain (scale 7-10). Indication s: acute pain methocarbam Yes [id number] 500mg Take 1 Univers oL 500 mg 3-28 tablet by ity o f tablet 00:00: mouth [place] 00 every 8 Medical (eight) Branch hours as needed (spasms). ibuprofen 2021-0 Yes [id number] 600mg Take 1 Univers 600 mg 3-28 tablet by ity of tablet 00:00: mouth [place] 00 every 6 Medical (six) Branch hours as needed for Pain (scale 4-6). HYDROcodone 2021-0 Yes [id number] 1{tbl} Take 1 Un omega -acetaminop 3-28 tablet by ity of hen 5-325 00:00: mouth [place] mg tablet 00 every 6 Medical (six) Branch hours as needed for Pain (scale 7-10). Indication s: acute pain methocarbam 2022-0 Yes [id number] 500mg Take 1 Univers oL 500 mg 3-28 tablet by ity o f tablet 00:00: mouth [place] 00 every 8 Medical (eight) Branch hours as needed (spasms). ibuprofen 2022-0 Yes [id number] 600mg Take 1 Univers 600 mg 3-28 tablet by ity of tablet 00:00: mouth [place] 00 every 6 Medical (six) Branch hours as needed for Pain (scale 4-6). HYDROcodone 2022-0 Yes [id number] 1{tbl} Take 1 Un omega -acetaminop 3-28 tablet by ity of hen 5-325 00:00: mouth [place] mg tablet 00 every 6 Medical (six) Branch hours as needed for Pain (scale 7-10). Indication s: acute pain methocarbam 2022-0 Yes [id number] 500mg Take 1 Univers oL 500 mg 3-28 tablet by ity o f tablet 00:00: mouth [place] 00 every 8 Medical (eight) Branch hours as needed (spasms). ibuprofen 2022-0 Yes [id number] 600mg Take 1 Univers 600 mg 3-28 tablet by ity of tablet 00:00: mouth [place] 00 every 6 Medical (six) Branch hours as needed for Pain (scale 4-6). HYDROcodone 2022-0 Yes [id number] 1{tbl} Take 1 Un omega -acetaminop 3-28 tablet by ity of hen 5-325 00:00: mouth [place] mg tablet 00 every 6 Medical (six) Branch hours as needed for Pain (scale 7-10). Indication s: acute pain methocarbam 2022-0 Yes [id number] 500mg Take 1 Univers oL 500 mg 3-28 tablet by ity o f tablet 00:00: mouth [place] 00 every 8 Medical (eight) Branch hours as needed (spasms). ibuprofen 2022-0 Yes [id number] 600mg Take 1 Univers 600 mg 3-28 tablet by ity of tablet 00:00: mouth [place] 00 every 6 Medical (six) Branch hours as needed for Pain (scale 4-6). Toradol Toradol 2019-0 No 15mg Common (Ketorolac) (Ketorolac) 8-05 S pirit 00:00: - [facility] 00 [facility] Toradol Toradol 2020-0 No 15mg Common (Ketorolac) (Ketorolac) 8-05 S pirit 00:00: - [facility] 00 [facility] Toradol Toradol 2020-0 No 15mg Common (Ketorolac) (Ketorolac) 8-05 S pirit 00:00: - [facility] 00 [facility] Toradol Toradol 2020-0 No 15mg Common (Ketorolac) (Ketorolac) 8-05 S pirit 00:00: - [facility] 00 [facility] Toradol Toradol 2020-0 No 15mg Common (Ketorolac) (Ketorolac) 8-05 S pirit 00:00: - [facility] 00 [facility] Toradol Toradol 2020-0 No 15mg Common (Ketorolac) (Ketorolac) 8-05 S pirit 00:00: - [facility] 00 [facility] Toradol Toradol 2020-0 No 15mg Common (Ketorolac) (Ketorolac) 8-05 S pirit 00:00: - [facility] 00 [facility] Toradol Toradol 2020-0 No 15mg Common (Ketorolac) (Ketorolac) 8-05 S pirit 00:00: - [facility] 00 [facility] Toradol Toradol 2020-0 No 15mg Common (Ketorolac) (Ketorolac) 8-05 S pirit 00:00: - [facility] 00 [facility] Toradol Toradol 2020-0 No 15mg Common (Ketorolac) (Ketorolac) 8-05 S pirit 00:00: - [facility] 00 [facility] Toradol Toradol 2020-0 No 15mg Common (Ketorolac) (Ketorolac) 8-05 S pirit 00:00: - [facility] 00 [facility] Toradol Toradol 2020-0 No 15mg Common (Ketorolac) (Ketorolac) 8-05 S pirit 00:00: - [facility] 00 [facility] Toradol Toradol 2020-0 No 15mg Common (Ketorolac) (Ketorolac) 8-05 S pirit 00:00: - [facility] 00 [facility] Kenalog Kenalog 2019-0 No 40mg Common (Triamcinol (Triamcinol 8-27 S pirit one) one) 00:00: - [facility] 00 [facility] Dexamethaso Dexamethaso 2019-0 No 10mg Common ne ne 8-27 Spirit 00:00: - [facility] 00 [facility] Kenalog Kenalog 2019-0 No 40mg Common (Triamcinol (Triamcinol 8-27 S pirit one) one) 00:00: - [facility] 00 [facility] Dexamethaso Dexamethaso 2019-0 No 10mg Common ne ne 8-27 Spirit 00:00: - [facility] 00 [facility] Kenalog Kenalog 2019-0 No 40mg Common (Triamcinol (Triamcinol 8-27 S pirit one) one) 00:00: - [facility] 00 [facility] Dexamethaso Dexamethaso 2019-0 No 10mg Common ne ne 8-27 Spirit 00:00: - [facility] 00 [facility] Kenalog Kenalog 2019-0 No 40mg Common (Triamcinol (Triamcinol 8-27 S pirit one) one) 00:00: - [facility] 00 [facility] Dexamethaso Dexamethaso 2019-0 No 10mg Common ne ne 8-27 Spirit 00:00: - [facility] 00 [facility] Kenalog Kenalog 2019-0 No 40mg Common (Triamcinol (Triamcinol 8-27 S pirit one) one) 00:00: - [facility] 00 [facility] Dexamethaso Dexamethaso 2019-0 No 10mg Common ne ne 8-27 Spirit 00:00: - [facility] 00 [facility] Kenalog Kenalog 2019-0 No 40mg Common (Triamcinol (Triamcinol 8-27 S pirit one) one) 00:00: - [facility] 00 [facility] Dexamethaso Dexamethaso 2019-0 No 10mg Common ne ne 8-27 Spirit 00:00: - [facility] 00 [facility] Kenalog Kenalog 2019-0 No 40mg Common (Triamcinol (Triamcinol 8-27 S pirit one) one) 00:00: - [facility] 00 [facility] Dexamethaso Dexamethaso 2019-0 No 10mg Common ne ne 8-27 Spirit 00:00: - [facility] 00 [facility] Kenalog Kenalog 2019-0 No 40mg Common (Triamcinol (Triamcinol 8-27 S pirit one) one) 00:00: - [facility] Dexamethaso Dexamethaso 2019-0 No 10mg [facility] ne ne 8-27 [facility] 00:00: - [facility] Kenalog Kenalog 2019-0 No 40mg [facility] (Triamcinol (Triamcinol 8-27 [facility] one) one) 00:00: - [facility] Dexamethaso Dexamethaso 2019-0 No 10mg [facility] ne ne 8-27 [facility] 00:00: - [facility] Kenseiln Kenalog 2019-0 No 40mg [facility] (Triamcinol (Triamcinol 8-27 S pirit one) one) 00:00: - [facility] Dexamethaso Dexamethaso 2019-0 No 10mg [facility] ne ne 8-27 [facility] 00:00: - [facility] Kenselin Kenalog 2019-0 No 40mg [facility] (Triamcinol (Triamcinol 8-27 S pirit one) one) 00:00: - [facility] Dexamethaso Dexamethaso 2019-0 No 10mg [facility] ne ne 8-27 [facility] 00:00: - [facility] Shelley Kenalog 2019-0 No 40mg [facility] (Triamcinol (Triamcinol 8-27 S pirit one) one) 00:00: - [facility] Dexamethaso Dexamethaso 2019-0 No 10mg [facility] ne ne 8-27 [facility] 00:00: - [facility] Julioalog Kenalog 2019-0 No 40mg [facility] (Triamcinol (Triamcinol 8-27 S pirit one) one) 00:00: - [facility] Dexamethaso Dexamethaso 2019-0 No 10mg [facility] ne ne 8-27 [facility] 00:00: - [facility] Atorvastati Atorvastati No Atorvastat n Calcium n Calcium in Calcium 20 MG 20 MG 20 MG busPIRone busPIRone No busPIRone HCl 10 MG HCl 10 MG HCl 10 MG Fish Oil Fish Oil No Fish Oil Red Yeast Red Yeast No Red Yeast Rice Rice Rice SUMAtriptan SUMAtriptan No SUMAtripta Succinate Succinate n 100 MG 100 MG Succinate 100 MG Vitamin D3 Vitamin D3 No Vitamin D3 Imitrex 100 Imitrex 100 No QD Imitrex MG MG 100 MG Meloxicam Meloxicam No 1{table QD Meloxicam 7.5 MG 7.5 MG t} 7.5 MG Levothyroxi Levothyroxi No QD Levothyrox ne Sodium ne Sodium ine Sodium 112 MCG 112 MCG 112 MCG Nortriptyli Nortriptyli No Nortriptyl ne HCl 50 ne HCl 50 ine HCl 50 MG MG MG Albuterol Albuterol No Albuterol Sulfate HFA Sulfate HFA Sulfate 108 (90 108 (90 HFA 108 Base) Base) (90 Base) MCG/ACT MCG/ACT MCG/ACT busPIRone busPIRone No 1{table BID busPIRone HCl 10 MG HCl 10 MG t} HCl 10 MG Nortriptyli Nortriptyli No 1{capsu QD Nortriptyl ne HCl 50 ne HCl 50 le} ine HCl 50 MG MG MG Fish Oil Fish Oil No Fish Oil Nortriptyli Nortriptyli No 1{capsu QD Nortriptyl ne HCl 10 ne HCl 10 le} ine HCl 10 MG MG MG Proventil Proventil No 2{puffs QID Proventil HFA 108 (90 HFA 108 (90 _as_nee HFA 108 Base) Base) ded} (90 Base) MCG/ACT MCG/ACT MCG/ACT SUMAtriptan SUMAtriptan No SUMAtripta Succinate Succinate n 100 MG 100 MG Succinate 100 MG Imitrex 100 Imitrex 100 No QD Imitrex MG MG 100 MG Levothyroxi Levothyroxi No QD Levothyrox ne Sodium ne Sodium ine Sodium 100 MCG 100 MCG 100 MCG Vitamin D3 Vitamin D3 No Vitamin D3 SUMAtriptan SUMAtriptan No QD SUMAtripta Succinate Succinate n 50 MG 50 MG Succinate 50 MG Nortriptyli Nortriptyli No Nortriptyl ne HCl 25 ne HCl 25 ine HCl 25 MG MG MG Red Yeast Red Yeast No Red Yeast Rice Rice Rice busPIRone busPIRone No 1{table BID busPIRone HCl 10 MG HCl 10 MG t} HCl 10 MG Nortriptyli Nortriptyli No 1{capsu QD Nortriptyl ne HCl 50 ne HCl 50 le} ine HCl 50 MG MG MG Fish Oil Fish Oil No Fish Oil Nortriptyli Nortriptyli No 1{capsu QD Nortriptyl ne HCl 10 ne HCl 10 le} ine HCl 10 MG MG MG Proventil Proventil No 2{puffs QID Proventil HFA 108 (90 HFA 108 (90 _as_nee HFA 108 Base) Base) ded} (90 Base) MCG/ACT MCG/ACT MCG/ACT SUMAtriptan SUMAtriptan No SUMAtripta Succinate Succinate n 100 MG 100 MG Succinate 100 MG Imitrex 100 Imitrex 100 No QD Imitrex MG MG 100 MG Levothyroxi Levothyroxi No QD Levothyrox ne Sodium ne Sodium ine Sodium 100 MCG 100 MCG 100 MCG Vitamin D3 Vitamin D3 No Vitamin D3 SUMAtriptan SUMAtriptan No QD SUMAtripta Succinate Succinate n 50 MG 50 MG Succinate 50 MG Nortriptyli Nortriptyli No Nortriptyl ne HCl 25 ne HCl 25 ine HCl 25 MG MG MG Red Yeast Red Yeast No Red Yeast Rice Rice Rice SUMAtriptan SUMAtriptan No SUMAtripta Succinate Succinate n 100 MG 100 MG Succinate 100 MG Nortriptyli Nortriptyli No Nortriptyl ne HCl 25 ne HCl 25 ine HCl 25 MG MG MG busPIRone busPIRone No 1{table BID busPIRone HCl 10 MG HCl 10 MG t} HCl 10 MG Red Yeast Red Yeast No Red Yeast Rice Rice Rice Vitamin D3 Vitamin D3 No Vitamin D3 Nortriptyli Nortriptyli No 1{capsu QD Nortriptyl ne HCl 10 ne HCl 10 le} ine HCl 10 MG MG MG SUMAtriptan SUMAtriptan No QD SUMAtripta Succinate Succinate n 50 MG 50 MG Succinate 50 MG Fish Oil Fish Oil No Fish Oil Levothyroxi Levothyroxi No QD Levothyrox ne Sodium ne Sodium ine Sodium 100 MCG 100 MCG 100 MCG Albuterol Albuterol No Albuterol Sulfate HFA Sulfate HFA Sulfate 108 (90 108 (90 HFA 108 Base) Base) (90 Base) MCG/ACT MCG/ACT MCG/ACT Imitrex 100 Imitrex 100 No QD Imitrex MG MG 100 MG Nortriptyli Nortriptyli No 1{capsu QD Nortriptyl ne HCl 50 ne HCl 50 le} ine HCl 50 MG MG MG Nortriptyli Nortriptyli No 1{capsu QD Nortriptyl ne HCl 50 ne HCl 50 le} ine HCl 50 MG MG MG Albuterol Albuterol No Albuterol Sulfate HFA Sulfate HFA Sulfate 108 (90 108 (90 HFA 108 Base) Base) (90 Base) MCG/ACT MCG/ACT MCG/ACT SUMAtriptan SUMAtriptan No SUMAtripta Succinate Succinate n 100 MG 100 MG Succinate 100 MG Fish Oil Fish Oil No Fish Oil busPIRone busPIRone No 1{table BID busPIRone HCl 10 MG HCl 10 MG t} HCl 10 MG Vitamin D3 Vitamin D3 No Vitamin D3 Levothyroxi Levothyroxi No QD Levothyrox ne Sodium ne Sodium ine Sodium 112 MCG 112 MCG 112 MCG Imitrex 100 Imitrex 100 No QD Imitrex MG MG 100 MG Red Yeast Red Yeast No Red Yeast Rice Rice Rice Proventil Proventil No 2{puffs QID Proventil HFA 108 (90 HFA 108 (90 _as_nee HFA 108 Base) Base) ded} (90 Base) MCG/ACT MCG/ACT MCG/ACT SUMAtriptan SUMAtriptan No SUMAtripta Succinate Succinate n 100 MG 100 MG Succinate 100 MG Levothyroxi Levothyroxi No QD Levothyrox ne Sodium ne Sodium ine Sodium 112 MCG 112 MCG 112 MCG Red Yeast Red Yeast No Red Yeast Rice Rice Rice Fish Oil Fish Oil No Fish Oil Vitamin D3 Vitamin D3 No Vitamin D3 Proventil Proventil No 2{puffs QID Proventil HFA 108 (90 HFA 108 (90 _as_nee HFA 108 Base) Base) ded} (90 Base) MCG/ACT MCG/ACT MCG/ACT Nortriptyli Nortriptyli No 1{capsu QD Nortriptyl ne HCl 50 ne HCl 50 le} ine HCl 50 MG MG MG busPIRone busPIRone No busPIRone HCl 10 MG HCl 10 MG HCl 10 MG Atorvastati Atorvastati No 1{table QD Atorvastat n Calcium n Calcium t} in Calcium 20 MG 20 MG 20 MG Albuterol Albuterol No Albuterol Sulfate HFA Sulfate HFA Sulfate 108 (90 108 (90 HFA 108 Base) Base) (90 Base) MCG/ACT MCG/ACT MCG/ACT Imitrex 100 Imitrex 100 No QD Imitrex MG MG 100 MG Atorvastati Atorvastati No Atorvastat n Calcium n Calcium in Calcium 20 MG 20 MG 20 MG Nortriptyli Nortriptyli No Nortriptyl ne HCl 50 ne HCl 50 ine HCl 50 MG MG MG busPIRone busPIRone No 1{table BID busPIRone HCl 10 MG HCl 10 MG t} HCl 10 MG Proventil Proventil No 2{puffs QID Proventil HFA 108 (90 HFA 108 (90 _as_nee HFA 108 Base) Base) ded} (90 Base) MCG/ACT MCG/ACT MCG/ACT Atorvastati Atorvastati No 1{table QD Atorvastat n Calcium n Calcium t} in Calcium 20 MG 20 MG 20 MG busPIRone busPIRone No 1{table BID busPIRone HCl 10 MG HCl 10 MG t} HCl 10 MG Atorvastati Atorvastati No Atorvastat n Calcium n Calcium in Calcium 20 MG 20 MG 20 MG busPIRone busPIRone No busPIRone HCl 10 MG HCl 10 MG HCl 10 MG Fish Oil Fish Oil No Fish Oil Red Yeast Red Yeast No Red Yeast Rice Rice Rice SUMAtriptan SUMAtriptan No SUMAtripta Succinate Succinate n 100 MG 100 MG Succinate 100 MG Vitamin D3 Vitamin D3 No Vitamin D3 Imitrex 100 Imitrex 100 No QD Imitrex MG MG 100 MG Meloxicam Meloxicam No 1{table QD Meloxicam 7.5 MG 7.5 MG t} 7.5 MG Levothyroxi Levothyroxi No QD Levothyrox ne Sodium ne Sodium ine Sodium 112 MCG 112 MCG 112 MCG Nortriptyli Nortriptyli No Nortriptyl ne HCl 50 ne HCl 50 ine HCl 50 MG MG MG Albuterol Albuterol No Albuterol Sulfate HFA Sulfate HFA Sulfate 108 (90 108 (90 HFA 108 Base) Base) (90 Base) MCG/ACT MCG/ACT MCG/ACT Proventil Proventil No 2{puffs QID Proventil HFA 108 (90 HFA 108 (90 _as_nee HFA 108 Base) Base) ded} (90 Base) MCG/ACT MCG/ACT MCG/ACT Atorvastati Atorvastati No 1{table QD Atorvastat n Calcium n Calcium t} in Calcium 20 MG 20 MG 20 MG busPIRone busPIRone No 1{table BID busPIRone HCl 10 MG HCl 10 MG t} HCl 10 MG Atorvastati Atorvastati No Atorvastat n Calcium n Calcium in Calcium 20 MG 20 MG 20 MG busPIRone busPIRone No busPIRone HCl 10 MG HCl 10 MG HCl 10 MG Fish Oil Fish Oil No Fish Oil Red Yeast Red Yeast No Red Yeast Rice Rice Rice SUMAtriptan SUMAtriptan No SUMAtripta Succinate Succinate n 100 MG 100 MG Succinate 100 MG Vitamin D3 Vitamin D3 No Vitamin D3 Imitrex 100 Imitrex 100 No QD Imitrex MG MG 100 MG Meloxicam Meloxicam No 1{table QD Meloxicam 7.5 MG 7.5 MG t} 7.5 MG Levothyroxi Levothyroxi No QD Levothyrox ne Sodium ne Sodium ine Sodium 112 MCG 112 MCG 112 MCG Nortriptyli Nortriptyli No Nortriptyl ne HCl 50 ne HCl 50 ine HCl 50 MG MG MG Albuterol Albuterol No Albuterol Sulfate HFA Sulfate HFA Sulfate 108 (90 108 (90 HFA 108 Base) Base) (90 Base) MCG/ACT MCG/ACT MCG/ACT SUMAtriptan SUMAtriptan No SUMAtripta Succinate Succinate n 100 MG 100 MG Succinate 100 MG Meloxicam Meloxicam No 1{table QD Meloxicam 7.5 MG 7.5 MG t} 7.5 MG Vitamin D3 Vitamin D3 No Vitamin D3 busPIRone busPIRone No busPIRone HCl 10 MG HCl 10 MG HCl 10 MG Proventil Proventil No 2{puffs QID Proventil HFA 108 (90 HFA 108 (90 _as_nee HFA 108 Base) Base) ded} (90 Base) MCG/ACT MCG/ACT MCG/ACT Imitrex 100 Imitrex 100 No QD Imitrex MG MG 100 MG Fish Oil Fish Oil No Fish Oil Levothyroxi Levothyroxi No Levothyrox ne Sodium ne Sodium ine Sodium 112 MCG 112 MCG 112 MCG Albuterol Albuterol No Albuterol Sulfate HFA Sulfate HFA Sulfate 108 (90 108 (90 HFA 108 Base) Base) (90 Base) MCG/ACT MCG/ACT MCG/ACT Atorvastati Atorvastati No Atorvastat n Calcium n Calcium in Calcium 20 MG 20 MG 20 MG Nortriptyli Nortriptyli No Nortriptyl ne HCl 50 ne HCl 50 ine HCl 50 MG MG MG Red Yeast Red Yeast No Red Yeast Rice Rice Rice Vitamin D3 Vitamin D3 No Vitamin D3 Imitrex 100 Imitrex 100 No QD Imitrex MG MG 100 MG Nortriptyli Nortriptyli No Nortriptyl ne HCl 50 ne HCl 50 ine HCl 50 MG MG MG Albuterol Albuterol No Albuterol Sulfate HFA Sulfate HFA Sulfate 108 (90 108 (90 HFA 108 Base) Base) (90 Base) MCG/ACT MCG/ACT MCG/ACT Proventil Proventil No 2{puffs QID Proventil HFA 108 (90 HFA 108 (90 _as_nee HFA 108 Base) Base) ded} (90 Base) MCG/ACT MCG/ACT MCG/ACT Fish Oil Fish Oil No Fish Oil Red Yeast Red Yeast No Red Yeast Rice Rice Rice Meloxicam Meloxicam No 1{table QD Meloxicam 7.5 MG 7.5 MG t} 7.5 MG Levothyroxi Levothyroxi No Levothyrox ne Sodium ne Sodium ine Sodium 112 MCG 112 MCG 112 MCG busPIRone busPIRone No busPIRone HCl 10 MG HCl 10 MG HCl 10 MG SUMAtriptan SUMAtriptan No SUMAtripta Succinate Succinate n 100 MG 100 MG Succinate 100 MG Atorvastati Atorvastati No Atorvastat n Calcium n Calcium in Calcium 20 MG 20 MG 20 MG Albuterol Albuterol No Albuterol Sulfate HFA Sulfate HFA Sulfate 108 (90 108 (90 HFA 108 Base) Base) (90 Base) MCG/ACT MCG/ACT MCG/ACT Red Yeast Red Yeast No Red Yeast Rice Rice Rice Vitamin D3 Vitamin D3 No Vitamin D3 Levothyroxi Levothyroxi No Levothyrox ne Sodium ne Sodium ine Sodium 112 MCG 112 MCG 112 MCG Atorvastati Atorvastati No Atorvastat n Calcium n Calcium in Calcium 20 MG 20 MG 20 MG SUMAtriptan SUMAtriptan No SUMAtripta Succinate Succinate n 100 MG 100 MG Succinate 100 MG Nortriptyli Nortriptyli No Nortriptyl ne HCl 50 ne HCl 50 ine HCl 50 MG MG MG busPIRone busPIRone No busPIRone HCl 10 MG HCl 10 MG HCl 10 MG Fish Oil Fish Oil No Fish Oil Proventil Proventil No 2{puffs QID Proventil HFA 108 (90 HFA 108 (90 _as_nee HFA 108 Base) Base) ded} (90 Base) MCG/ACT MCG/ACT MCG/ACT Meloxicam Meloxicam No 1{table QD Meloxicam 7.5 MG 7.5 MG t} 7.5 MG Imitrex 100 Imitrex 100 No QD Imitrex MG MG 100 MG SUMAtriptan SUMAtriptan No SUMAtripta Succinate Succinate n 100 MG 100 MG Succinate 100 MG Levothyroxi Levothyroxi No QD Levothyrox ne Sodium ne Sodium ine Sodium 112 MCG 112 MCG 112 MCG Red Yeast Red Yeast No Red Yeast Rice Rice Rice Fish Oil Fish Oil No Fish Oil Vitamin D3 Vitamin D3 No Vitamin D3 Proventil Proventil No 2{puffs QID Proventil HFA 108 (90 HFA 108 (90 _as_nee HFA 108 Base) Base) ded} (90 Base) MCG/ACT MCG/ACT MCG/ACT Nortriptyli Nortriptyli No 1{capsu QD Nortriptyl ne HCl 50 ne HCl 50 le} ine HCl 50 MG MG MG busPIRone busPIRone No busPIRone HCl 10 MG HCl 10 MG HCl 10 MG Atorvastati Atorvastati No 1{table QD Atorvastat n Calcium n Calcium t} in Calcium 20 MG 20 MG 20 MG Albuterol Albuterol No Albuterol Sulfate HFA Sulfate HFA Sulfate 108 (90 108 (90 HFA 108 Base) Base) (90 Base) MCG/ACT MCG/ACT MCG/ACT Imitrex 100 Imitrex 100 No QD Imitrex MG MG 100 MG Atorvastati Atorvastati No Atorvastat n Calcium n Calcium in Calcium 20 MG 20 MG 20 MG Nortriptyli Nortriptyli No Nortriptyl ne HCl 50 ne HCl 50 ine HCl 50 MG MG MG busPIRone busPIRone No 1{table BID busPIRone HCl 10 MG HCl 10 MG t} HCl 10 MG Proventil Proventil No 2{puffs QID Proventil HFA 108 (90 HFA 108 (90 _as_nee HFA 108 Base) Base) ded} (90 Base) MCG/ACT MCG/ACT MCG/ACT Atorvastati Atorvastati No 1{table QD Atorvastat n Calcium n Calcium t} in Calcium 20 MG 20 MG 20 MG busPIRone busPIRone No 1{table BID busPIRone HCl 10 MG HCl 10 MG t} HCl 10 MG Atorvastati Atorvastati No Atorvastat n Calcium n Calcium in Calcium 20 MG 20 MG 20 MG busPIRone busPIRone No busPIRone HCl 10 MG HCl 10 MG HCl 10 MG Fish Oil Fish Oil No Fish Oil Red Yeast Red Yeast No Red Yeast Rice Rice Rice SUMAtriptan SUMAtriptan No SUMAtripta Succinate Succinate n 100 MG 100 MG Succinate 100 MG Vitamin D3 Vitamin D3 No Vitamin D3 Imitrex 100 Imitrex 100 No QD Imitrex MG MG 100 MG Meloxicam Meloxicam No 1{table QD Meloxicam 7.5 MG 7.5 MG t} 7.5 MG Levothyroxi Levothyroxi No QD Levothyrox ne Sodium ne Sodium ine Sodium 112 MCG 112 MCG 112 MCG Nortriptyli Nortriptyli No Nortriptyl ne HCl 50 ne HCl 50 ine HCl 50 MG MG MG Albuterol Albuterol No Albuterol Sulfate HFA Sulfate HFA Sulfate 108 (90 108 (90 HFA 108 Base) Base) (90 Base) MCG/ACT MCG/ACT MCG/ACT Proventil Proventil No 2{puffs QID Proventil HFA 108 (90 HFA 108 (90 _as_nee HFA 108 Base) Base) ded} (90 Base) MCG/ACT MCG/ACT MCG/ACT Atorvastati Atorvastati No 1{table QD Atorvastat n Calcium n Calcium t} in Calcium 20 MG 20 MG 20 MG busPIRone busPIRone No 1{table BID busPIRone HCl 10 MG HCl 10 MG t} HCl 10 MG Immunizations Ordered Filled Immunization Date Status Comments Sourc e Immunization Name Name Flucelvax - single Flucelvax - single 2021-11-08 [facility] dose syringe 17:03:00 [facility] Flucelvax - single Flucelvax - single 2021-11-08 Completed [facility] - dose syringe dose syringe 17:03:00 [facility] Flucelvax - single Flucelvax - single 2021-11-08 [facility]pleted [facility] - dose syringe dose syringe 17:03:00 [facility] Flucelvax - single Flucelvax - single 2021-11-08 [facility]pleted [facility] - dose syringe dose syringe 17:03:00 [facility] Flucelvax - single Flucelvax - single 2021-11-08 [facility]pleted [facility] - dose syringe dose syringe 17:03:00 [facility] Flucelvax - single Flucelvax - single 2021-11-08 [facility]pleted [facility] - dose syringe dose syringe 17:03:00 [facility] Flucelvax - single Flucelvax - single 2021-11-08 [facility]pleted [facility] - dose syringe dose syringe 17:03:00 [facility] Flucelvax - single Flucelvax - single 2021-11-08 [facility]pleted [facility] - dose syringe dose syringe 17:03:00 [facility] Flucelvax - single Flucelvax - single 2021-11-08 [facility]pleted [facility] - dose syringe dose syringe 17:03:00 [facility] SARS-COV-2 COVID-19 2020-05-19 Completed [facility] MODERNA VACCINE 00:00:00 [facility] SARS-COV-2 COVID-19 2020-05-19 Completed [facility] of MODERNA VACCINE 00:00:00 [facility] SARS-COV-2 COVID-19 2020-05-19 Completed [facility] of MODERNA VACCINE 00:00:00 [facility] SARS-COV-2 COVID-19 2020-05-19 Completed [facility] of MODERNA VACCINE 00:00:00 [facility] SARS-COV-2 COVID-19 2020-05-19 Completed [facility] of MODERNA VACCINE 00:00:00 [facility] SARS-COV-2 COVID-19 2020-04-21 Completed [facility] of MODERNA VACCINE 00:00:00 [facility] SARS-COV-2 COVID-19 2020-04-21 Completed [facility] of MODERNA VACCINE 00:00:00 [facility] SARS-COV-2 COVID-19 2020-04-21 Completed [facility] of MODERNA VACCINE 00:00:00 [facility] SARS-COV-2 COVID-19 2020-04-21 Completed [facility] of MODERNA VACCINE 00:00:00 [facility] SARS-COV-2 COVID-19 2020-04-21 Completed [facility] of MODERNA VACCINE 00:00:00 [facility] Afluria Afluria 2018-12-18 [facility]pleted [facility] - 10:02:00 [facility] Afluria Afluria 2018-12-18 Completed [facility] - 10:02:00 [facility] Afluria Afluria 2018-12-18 Completed [facility] - 10:02:00 [facility] Afluria Afluria 2018-12-18 Completed [facility] - 10:02:00 [facility] Afluria Afluria 2018-12-18 Completed [facility] - 10:02:00 [facility] Afluria Afluria 2018-12-18 Completed [facility] - 10:02:00 [facility] Afluria Afluria 2018-12-18 Completed [facility] - 10:02:00 [facility] Afluria Afluria 2018-12-18 Completed [facility] - 10:02:00 [facility] Afluria Afluria 2018-12-18 Completed [facility] - 10:02:00 [facility] Afluria Afluria 2018-12-18 Completed [facility] - 10:02:00 [facility] Afluria Afluria 2018-12-18 Completed [facility] - 10:02:00 [facility] Afluria Afluria 2018-12-18 Completed [facility] - 10:02:00 [facility] Afluria Afluria 2018-12-18 Completed [facility] - 10:02:00 [facility] Vital Signs Vital Name Observation Time Observation Value Comments Source height 2022-01-13 13:00:00 67 [in_i] [facility] weight 2022-01-13 13:00:00 160 [lb_av] [facility] bmi 2022-01-13 13:00:00 25.06 kg/m2 [facility] height 2021-11-29 15:00:00 67 [in_i] [facility] weight 2021-11-29 15:00:00 155.6 [lb_av] [facility] temperature 2021-11-29 15:00:00 98.4 [degF] [facility] bmi 2021-11-29 15:00:00 24.37 kg/m2 [facility] blood pressure 2021-11-29 15:00:00 126 mm[Hg] [facility] - systolic [facility] blood pressure 2021-11-29 15:00:00 82 mm[Hg] [facility] - diastolic [facility] height 2021-11-08 16:40:00 66.5 [in_i] [facility] weight 2021-11-08 16:40:00 155 [lb_av] [facility] temperature 2021-11-08 16:40:00 97.1 [degF] [facility] bmi 2021-11-08 16:40:00 24.64 kg/m2 [facility] oximetry 2021-11-08 16:40:00 99 % [facility] 2021-11-08 16:40:00 16 /min [facility] blood pressure 2021-11-08 16:40:00 121 mm[Hg] [facility] - systolic [facility] blood pressure 2021-11-08 16:40:00 80 mm[Hg] [facility] - diastolic [facility] height 2021-09-07 16:20:00 66.5 [in_i] [facility] weight 2021-09-07 16:20:00 150 [lb_av] [facility] temperature 2021-09-07 16:20:00 97.6 [degF] [facility] bmi 2021-09-07 16:20:00 23.85 kg/m2 [facility] oximetry 2021-09-07 16:20:00 98 % [facility] respiratory rate 2021-09-07 16:20:00 16 /min [facility] blood pressure 2021-09-07 16:20:00 139 mm[Hg] [facility] systolic [facility] blood pressure 2021-09-07 16:20:00 78 mm[Hg] [facility] diastolic [facility] Systolic blood 2021-08-25 12:32:00 97 mm[Hg] [facility] of pressure [facility] Diastolic blood 2021-08-25 12:32:00 58 mm[Hg] [facility]ive [facility] of pressure [facility] Heart rate 2021-08-25 12:32:00 77 /min [facility] Body temperature 2021-08-25 12:32:00 36.06 Kate [facility] Respiratory rate 2021-08-25 12:32:00 16 /min [facility] Oxygen saturation in 2021-08-25 12:32:00 98 /min [facility] Arterial blood by [facility] Pulse oximetry Branch Body weight 2021-08-25 09:23:00 67.495 kg [facility] BMI 2021-08-25 09:23:00 23.31 kg/m2 [facility] Body height 2021-08-22 09:39:00 170.2 cm [facility] height 2021-07-20 16:10:00 67 [in_i] [facility] weight 2021-07-20 16:10:00 144.3 [lb_av] [facility] temperature 2021-07-20 16:10:00 97.5 [degF] [facility] bmi 2021-07-20 16:10:00 22.6 kg/m2 [facility] oximetry 2021-07-20 16:10:00 99 % [facility] respiratory rate 2021-07-20 16:10:00 18 /min Comm [facility] blood pressure 2021-07-20 16:10:00 130 mm[Hg] Common [facility] - systolic [facility] blood pressure 2021-07-20 16:10:00 72 mm[Hg] [facility] - diastolic [facility] height 2021-06-08 16:10:00 67 [in_i] [facility] weight 2021-06-08 16:10:00 139.7 [lb_av] [facility] temperature 2021-06-08 16:10:00 97.7 [degF] [facility] bmi 2021-06-08 16:10:00 21.88 kg/m2 [facility] oximetry 2021-06-08 16:10:00 100 % [facility] respiratory rate 2021-06-08 16:10:00 18 /min [facility] blood pressure 2021-06-08 16:10:00 124 mm[Hg] [facility] - systolic [facility] blood pressure 2021-06-08 16:10:00 73 mm[Hg] Common [facility] diastolic [facility] Systolic blood 2021-06-02 15:42:00 101 mm[Hg] [facility] of pressure [facility] Diastolic blood 2021-06-02 15:42:00 66 mm[Hg] [facility]ive [facility] of [facility] Heart rate 2021-06-02 15:42:00 110 /min [facility] Body temperature 2021-06-02 15:42:00 36.11 [facility] Respiratory rate 2021-06-02 15:42:00 17 /min [facility] Body height 2021-06-02 15:42:00 170.2 cm [facility] Body weight 2021-06-02 15:42:00 62.415 kg [facility] BMI 2021-06-02 15:42:00 21.55 kg/m2 [facility] Oxygen saturation in 2021-06-02 15:42:00 99 /min [facility] Arterial blood by [facility] Pulse oximetry Branch Procedures Procedure Date / Time Performing Clinician Source Performed BASIC METABOLIC PANEL 2021-08-25 10:30:00 Shikha Garcia [facility] (NA, K, CL, CO2, GLUCOSE, Medica l Branch BUN, CREATININE, CA) CBC WITH DIFF 2021-08-25 10:30:00 Shikha Garcia [facility] BASIC METABOLIC PANEL 2021-08-24 09:55:00 Shikha Garcia [facility] (NA, K, CL, CO2, GLUCOSE, Medica l Branch BUN, CREATININE, CA) CBC WITH DIFF 2021-08-24 09:55:00 Shikha Garcia [facility] XR SMALL BOWEL SERIES 2021-08-24 00:00:53 Elizabeth Webb [facility] PHOSPHORUS 2021-08-23 10:18:00 [facility] MAGNESIUM 2021-08-23 10:18:00 [facility] [facility] THYROID STIMULATING 2021-08-23 10:18:00 Elizabeth Webb [facility] HORMONE [facility] BASIC METABOLIC PANEL 2021-08-23 10:18:00 Maribel Polanco [facility] (NA, K, CL, CO2, GLUCOSE, Medica l Branch BUN, CREATININE, CA) CBC WITH DIFF 2021-08-23 10:18:00 Maribel Polanco [facility] XR CHEST 1 VW 2021-08-22 09:20:11 Stacia Mcclendon [facility] CT ABDOMEN PELVIS W 2021-08-22 07:05:49 [place] [facility] CONTRAST [facility] LIPASE 2021-08-22 06:46:00 [place] [facility] COMP. METABOLIC PANEL 2021-08-22 06:46:00 [place] [facility] ([id number]) Medical [place] CBC WITH DIFF 2021-08-22 06:46:00 [place] [facility] PROTHROMBIN TIME / INR 2021-08-22 06:46:00 [place] [facility] ACTIVATED PARTIAL 2021-08-22 06:46:00 [place] [facility] THRMPLAS NATALY [facility] URINALYSIS 2021-08-22 06:46:00 [place] [facility] COVID-19 (ID NOW RAPID 2021-08-22 06:46:00 [place] [facility] TESTING) Medical Branch LAB ONLY COVID 2021-08-22 06:46:00 [place] [facility] INTERPRETATION [facility] LACTIC ACID WHOLE BLOOD 2021-08-22 06:44:00 [place] [facility] CONSENT/REFUSAL FOR 2021-08-22 06:25:29 Doctor Unassladonna, [facility] DIAGNOSIS AND TREATMENT [place] [facility] REFERRAL- 2021-04-28 05:01:00 Doctor Unaarmando, [facility] REQUEST/RESPONSE [place] [facility] Encounters Start End Encounter Admission Attending Care Care Encounter Source Date/Time Date/Time Type Type Clinicians Facility Department ID 2021-11-30 Outpatient Benz, STLMLC STLC [id number] Common 09:26:02 [facility] 2021-11-29 Outpatient Benz, STLMLC STLC [id number] Common 15:23:04 [facility] 2021-11-28 Outpatient Benz, STLMLC STLMLC [id number] Common 16:32:02 [facility] 2021-11-10 Outpatient Benz, STLMLC STLC [id number] Common 08:14:02 [facility] 2021-11-09 Outpatient Benz, STLMLC STLC [id number] Common 12:08:01 Thanh [facility] 2021-06-08 Outpatient Benz, STLMLC STLMLC [id number] Common 16:01:03 Thanh [facility] 2022-03-02 2022-03-02 (WEB) STLMLC STLMLC [id number] Co mmon 00:00:00 00:00:00 [facility] 2022-01-13 2022-01-13 OFFICE STLMLC STLMLC [id number] Co mmon 00:00:00 00:00:00 VISIT EST Spir it PT LEVEL 3 [facility] 2022-01-12 2022-01-12 (TEL) STLMLC STLMLC [id number] Co mmon 00:00:00 00:00:00 [facility] 2021-11-30 2021-11-30 (TEL) STLMLC STLMLC [id number] Co mmon 00:00:00 00:00:00 [facility] 2021-11-29 2021-11-29 CONSULT - STLMLC STLMLC [id number] Common 00:00:00 00:00:00 OFFICE, L3 Spi rit [facility] 2021-11-08 2021-11-08 OFFICE STLMLC STLMLC [id number] Co mmon 00:00:00 00:00:00 VISIT [facility] ESTAB PT - CHI LEVEL 4 [facility] 2021-09-07 2021-09-07 OFFICE STLMLC STLMLC [id number] Co mmon 00:00:00 00:00:00 VISIT Spirit ESTAB PT - CHI LEVEL 4 [facility] 2021-08-26 2021-08-26 Transition CHIKIS Anton 1.2.840.114 [id number] Univers 00:00:00 00:00:00 of Care Celsa THOMPSON 350.1.13.10 i ty of [place] 4.2.7.2.686 Marilu hylton [phone] [facility] 403 Branch 2021-08-22 2021-08-25 Inpatient X HAKAN [facility] [id number] Univers 01:26:00 11:48:00 STACIA roman [facility] 2021-08-22 2021-08-25 Hospital [place] [facility] 1.2.840.1 [id number] Univers 01:26:00 11:48:00 Encounter Hakan Stacia KAN 350.1.13.10 [facility] [place] [phone] [facility] 081 Branch 2021-07-20 2021-07-20 OFFICE STLMLC STLMLC [id number] Co mmon 00:00:00 00:00:00 VISIT EST Spir it PT LEVEL 3 - CHI [facility] 2021-07-15 2021-07-15 (TEL) STLMLC STLMLC [id number] Co mmon 00:00:00 00:00:00 Spirit - [facility]I [facility] 2021-06-08 2021-06-08 OFFICE STLMLC STLMLC [id number] Co mmon 00:00:00 00:00:00 VISIT Spirit ESTAB PT - CHI LEVEL 4 [facility] 2021-06-02 2021-06-02 Outpatient R JON [facility] [id number] Univers 10:30:00 11:00:08 ELIZABETH roman [facility] 2021-06-02 2021-06-02 Office Jon [facility] [id number] Univers 10:30:00 11:00:08 Visit Elizabeth KAN 350.1.13.10 i ty of [place] 4.2.7.2.686 [facility] [id number] Hi dical NAL 188 Branch BUILDING 2021-06-02 2021-06-02 Orders Doctor JUVENAL 1.2.840.114 [id number] Univers 00:00:00 00:00:00 Only Unassigned, GOLDEN 350.1.13.10 ity of [place] [facility] 4.2.7.2.686 Shawn as [phone] [facility] 009 Branch 2021-05-25 2021-05-25 Transition CHIKIS Anton 1.2.840.114 [id number] Univers 00:00:00 00:00:00 of Care Celsa THOMPSON 350.1.13.10 [place] [id number] [facility] 403 Branch 2021-05-12 2021-05-24 In[facility] U [facility] SHAYLA [id number] Univers 06:02:00 11:30:00 STACIA itbettie [facility] 2021-05-12 2021-05-24 [facility] Ana Olson [facility] 1.2.840.11 [id number] Univers 06:02:00 11:30:00 Encounter AhkanStacia 350.1.13.10 ity [facility] 4.2.7.2.686 [facility] [id number] [facility] 081 Branch 2021-05-10 2021-05-10 Transition CHIKIS Anton 1.2.840.114 [id number] Univers 00:00:00 00:00:00 of Care Celsa THOMPSON 350.1.13.10 [place] [id number] [facility] [address] [place] 2021-05-04 2021-05-09 Inpatient X CARIE [facility] SHAYLA [id number] Univers 20:04:00 17:12:00 [facility] 2021-05-04 2021-05-09 [facility] Perry Hoskins [facility] 1.2.840.1 14 [id number] Univers 20:04:00 17:12:00 Encounter Ana Olson LORETA 350.1.13.10 ity [facility] 4.2.7.2.686 [facility] [id number] [facility] 081 Branch 2021-05-05 2021-05-05 [facility] [id number] Univers 12:30:00 15:27:00 Elizabeth KAN 350.1.13.10 i ty [place] [id number] [facility] 020 Branch 2021-04-28 2021-04-28 Orders Doctor SANFORD 1.2.840.114 [id number] Univers 00:00:00 00:00:00 Only Unassigned, GOLDEN 350.1.13.10 ity of [place] [facility] 4.2.7.2.686 Shawn as [phone] [facility] [address] [place] 2021-02-10 2021-02-10 Telephone Alaina Yepez 1.2.840.114 [id number] Univers 00:00:00 00:00:00 GOLDEN 350.1.13.10 it y of HOSPITAL 4.2.7.2.686 Shawn as [id number] [facility] [address] [place] 2021-02-09 2021-02-09 Outpatient R FEED [facility] [id number] Univers 10:00:00 10:22:19 SPARKLE [facility] 2021-02-09 2021-02-09 Laboratory Only, Ang Db Test [facility] 1.2.8 40.114 [id number] Univers 10:00:00 10:22:19 Only Fede [facility] 350.1.13.10 ity of [place] 4.2.7.2.686 Shawn as LONNIE?BLEA [phone] Hi man FIGUEROA [address] [place] MEDICAL OFFICE BUILDING 2020-09-13 2020-09-13 Outpatient R VALERIY [facility] [id number] Univers 15:00:00 15:00:00 JOSEPHINE [facility] 2020-05-19 2020-05-19 Outpatient R JORGE LUIS [facility] [id number] Univers 11:00:00 11:00:00 ARA [facility] 2020-05-11 2020-05-11 Patient Valeriy [facility] 1.2.840.114 [id number] Univers 00:00:00 00:00:00 Secure Msg Josephine Loreta 350.1.13.10 it[place] [phone] Hi man [facility] [address] Branch Building 2020-05-10 2020-05-10 Sort Line Worker Elba, Adc Lab Main [facility] 1.2.8 40.114 [id number] Univers 15:54:03 16:09:03 Visit Justinedisrick Josephine Kan 350.1.13.10 [place] [phone] Me dical nal [address] [employer] [employer] 2020-05-10 2020-05-10 Office [facility] 1.2.840.114 [id number] Univers 14:30:44 15:23:33 Visit Josephine Kan 350.1.13.10 i [place] [phone] Me dical nal [address] [employer] [employer] 2020-05-10 2020-05-10 Outpatient R VALERIY [facility] [id number] Univers 14:30:00 14:30:[facility] 2020-04-21 2020-04-21 Outpatient [facility] [id number] Univers 11:20:00 11:20:00 [facility] 2020-01-29 2020-01-29 Orders Doctor JUVENAL 1.2.840.114 [id number] Univers 00:00:00 00:00:00 Only Unassigned, GOLDEN 350.1.13.10 ity of [place] [facility] 4.2.7.2.686 Shawn as [id number] [address] 2019-01-02 2019-01-02 Outpatient R YELENA [facility] [id number] Univers 13:00:00 13:00:00 REBECCA [facility] 2009-07-09 2009-07-09 Emergency X IWONA, [facility] ERT [id number] Univers 13:24:00 20:09:00 RADSUNITAAM 7 [facility] Results Test Description Test Time Test Comments Results Result Comments Source BASIC METABOLIC PANEL (NA, K, CL, CO2, GLUCOSE, BUN, 2021-08 12:06:55 CREATININE, CA) Test Item Value Reference Range Interpretation Comme nts NA (test code = 3402351299) 137 mmol/L 135-145 K (test code = 9569179401) 4.1 mmol/L 3.5-5 CL (test code = 6257570640) 105 mmol/L 98-108 CO2 TOTAL (test code = 7358380050) 22 mmol/L 23-31 L AGAP (test code = 2650375858) 2-16 BUN (test code = 4296537242) 6 mg/dL 7-23 L GLUCOSE (test code = 7702689267) 93 mg/dL 70-110 CREATININE (test code = 0.67 mg/dL 0.5-1.04 1079230246) CALCIUM (test code = 2347169601) 8.3 mg/dL 8.6-10.6 L eGFR (test code = 7507730887) mL/min/1.73m2 AKSHAT (test code = AKSHAT) Association of Glomerular Filtration Rate (GFR) and Staging of Kidney Disease* + +-------- + ------+| GFR (mL/min/1.73 m2) ?| With Kidney Damage ?| ?Without Kidney Damage+ +-- + +| ?>90 ?| ?Stage one ?| ? Normal ?+ +------- + -------+| ?60-89 ?| ?Stage two ?| ? Decreased GFR ? + +-------- + ------+| ?30-59 ?| ?Stage three ?| ? Stage three ? + +-------- + ------+| ?15-29 ?| ?Stage four ? | ? Stage four ?+ +------- + -------+| ?<15 (or dialysis) ? ?| ?Stage five ? | ? Stage five ?+ +------- + -------+ *Each stage assumes the associated GFR [...] or abnormalities in imaging tests). Lab Interpretation (test code = Abnormal 52065-6) [facility] WITH [id number] 11:40:28 Test Item Value Reference Range Interpretation Comments [...] as normal/abnormal . HGB (test code = 12.5 g/dL 11.6-15 718-7) HCT (test code = 37.7 % 35.7-45.2 4544-3) MCV (test code = 84.7 fL 80.6-95.5 787-2) MCH (test code = 28.1 pg 25.9-32.8 785-6) MCHC (test code = 33.2 g/dL 31.6-35.1 786-4) RDW-SD (test code = 41.8 fL 39-49.9 69628-9) RDW-CV (test code = 13.6 % 12-15.5 788-0) PLT (test code = See_Comment [Automated 777-3) message] The sy stem which generated this result transmitted reference range : 166 - 358 10*3/ ?L. The reference r jj was not used to interpret this result as normal/abnormal . MPV (test code = 9.1 fL 9.5-12.9 L 48042-3) NRBC/100 WBC (test See_Comment [Automat ed code = 8447892096) message] The system which generated this result transmitted reference range : 0.0 - 10.0 /100 WBCs. The refer ence range was not u sed to interpret th is result as normal/abnormal . NRBC x10^3 (test code See_Comment [Auto mated = 0447758836) message] The s ystem which generated this result transmitted reference range : 10*3/?L. The reference range was not used to interpret this result as normal/abnormal . GRAN MAT (NEUT) % 48.8 % (test code = 770-8) IMM GRAN % (test code 0.70 % = 3997494691) LYMPH % (test code = 38.3 % 736-9) MONO % (test code = 7.9 % 5905-5) EOS % (test code = 3.8 % 713-8) BASO % (test code = 0.5 % 706-2) GRAN MAT x10^3(ANC) 2.83 10*3/uL 1.88-7.09 (test code = 5978582679) IMM GRAN x10^3 (test 0.04 10*3/uL 0-0.06 code = 7118875124) LYMPH x10^3 (test code 2.22 10*3/uL 1.32-3.29 = 731-0) MONO x10^3 (test code 0.46 10*3/uL 0.33-0.92 = 742-7) EOS x10^3 (test code = 0.22 10*3/uL 0.03-0.39 711-2) BASO x10^3 (test code 0.03 10*3/uL 0.01-0.07 = 704-7) Lab Interpretation Abnormal (test code = 31409-7) [facility] WITH [id number] 11:54:35 Test Item Value Reference Range Interpretation Comments WBC (test code = See_Comment [Automated 6490-2) message] The sy stem which generated this result transmitted reference range : 4.30 - 11.10 10*3/?L. The reference range was not used to interpret this result as normal/abnormal . RBC (test code = See_Comment [Automated 689-8) message] The sy stem which generated this result transmitted reference range : 3.93 - 5.25 10*6/?L. The reference range was not used to interpret this result as normal/abnormal . HGB (test code = 11.5 g/dL 11.6-15 L 718-7) HCT (test code = 34.9 % 35.7-45.2 L 4544-3) MCV (test code = 85.5 fL 80.6-95.5 787-2) MCH (test code = 28.2 pg 25.9-32.8 785-6) MCHC (test code = 33.0 g/dL 31.6-35.1 786-4) RDW-SD (test code = 43.6 fL 39-49.9 91082-3) RDW-CV (test code = 14.0 % 12-15.5 788-0) PLT (test code = See_Comment [Automated 667-3) message] The sy stem which generated this result transmitted reference range : 166 - 358 10*3/ ?L. The reference r jj was not used to interpret this result as normal/abnormal . MPV (test code = 9.2 fL 9.5-12.9 L 21266-0) NRBC/100 WBC (test See_Comment [Automat ed code = 7426600823) message] The system which generated this result transmitted reference range : 0.0 - 10.0 /100 WBCs. The refer ence range was not u sed to interpret th is result as normal/abnormal . NRBC x10^3 (test code See_Comment [Auto mated = 7160324232) message] The s ystem which generated this result transmitted reference range : 10*3/?L. The reference range was not used to interpret this result as normal/abnormal . GRAN MAT (NEUT) % 46.2 % (test code = 770-8) IMM GRAN % (test code 0.60 % = 1163560548) LYMPH % (test code = 37.6 % 736-9) MONO % (test code = 10.8 % 5905-5) EOS % (test code = 4.0 % 713-8) BASO % (test code = 0.8 % 706-2) GRAN MAT x10^3(ANC) 2.45 10*3/uL 1.88-7.09 (test code = 9476827643) IMM GRAN x10^3 (test 0.03 10*3/uL 0-0.06 code = 6750818833) LYMPH x10^3 (test code 1.99 10*3/uL 1.32-3.29 = 731-0) MONO x10^3 (test code 0.57 10*3/uL 0.33-0.92 = 742-7) EOS x10^3 (test code = 0.21 10*3/uL 0.03-0.39 711-2) BASO x10^3 (test code 0.04 10*3/uL 0.01-0.07 = 704-7) Lab Interpretation Abnormal (test code = 41832-5) [facility] METABOLIC PANEL (NA, K, CL, CO2, GLUCOSE, BUN, CREATININE, CA)2021-08-24 11:27:27 Test Item Value Reference Range Interpretation Comments NA (test code = 138 mmol/L 135-145 7057056486) K (test code = 3.9 mmol/L 3.5-5 7970239548) CL (test code = 109 mmol/L 98-108 H 8849536577) CO2 TOTAL (test code = 23 mmol/L 23-31 4592982332) AGAP (test code = 2-16 8810507173) BUN (test code = 9 mg/dL 7-23 6989395679) GLUCOSE (test code = 104 mg/dL 70-110 9115769448) CREATININE (test code = 0.63 mg/dL 0.5-1.04 5371042272) CALCIUM (test code = 7.3 mg/dL 8.6-10.6 L 3245711304) eGFR (test code = mL/min/1.73m2 0967029984) AKSHAT (test code = AKSHAT) Association of [...] tests). Lab Interpretation Abnormal (test code = 44135-7) [facility]"
[2022-03-06] MEDS ORDERED: KETOROLAC 30 MG/ML INJ ONE (12:18)
[2022-03-06] MEDS ORDERED: predniSONE 20 MG TAB ONE (12:18)
[2022-03-06] MEDS ORDERED: FAMOTIDINE 20 MG TAB ONE (12:19)
--- NOTE | 2022-03-06 12:47 | RAD REPORT ---
EXAM DESCRIPTION: RAD - Shoulder Left 2 View - 03/06/2022 12:08 pm CLINICAL HISTORY: PAIN COMPARISON: No comparisons FINDINGS: No bone or joint abnormality is detected.
--- NOTE | 2022-03-06 12:47 | RAD REPORT ---
EXAM DESCRIPTION: RAD - Chest Pa And Lat (2 Views) - 03/06/2022 12:08 pm CLINICAL HISTORY: shoulder pain Chest pain. COMPARISON: Chest Single View dated 05/12/2021; Chest Single View dated 02/10/2021; Chest Single View dated 02/05/2021; CHEST SINGLE VIEW dated 03/20/2012 FINDINGS: The lungs are clear. The heart is normal in size. No displaced fractures. IMPRESSION: No acute or concerning finding suspected.
--- NOTE | 2022-03-06 13:07 | ER ---
Nurse's Notes [facility] Name: Mary Malagon Age: 46 yrs Sex: Female : 1975 Arrival Date: 03/06/2022 Time: 11:22 Bed 23 Private MD: Taran Benz Diagnosis: Strain of muscle(s) and tendon(s) of the rotator cuff of left shoulder Presentation: 03/06 11:48 Chief complaint: Patient states: Woke up this morning feeling like equilibrium was off. ss Pt states last time this happened, she had an ear infection. Also c/o L shoulder discomfort that began . Coronavirus screen: Client denies travel out of the [place] in the last 14 days. Ebola Screen: Patient denies exposure to infectious person. Patient denies travel to an Ebola-affected area in the 21 days before illness onset. Initial Sepsis Screen: Does the patient meet any 2 criteria? No. Patient's initial sepsis screen is negative. Does the patient have a suspected source of infection? No. Patient's initial sepsis screen is negative. Risk Assessment: Do you want to hurt yourself or someone else? Patient reports no desire to harm self or others. Onset of symptoms was March 02, 2022. 11:48 Method Of Arrival: Ambulatory ss 11:48 Acuity: FRAN 3 ss OCULARIST: 11:50 LMP N/A - Hysterectomy ss Historical: - Allergies: 11:50 No Known Allergies; ss - Home Meds: 11:52 levothyroxine 125 mcg cap [Active]; nortriptyline 50 mg Oral cap [Active]; buspirone 10 ss mg Oral tab 2 times per day [Active]; 11:52 atorvastatin 20 mg oral tab 1 tab once daily [Active]; Albuterol Inhl [Active]; ss - PMHx: 11:50 Hypothyroidism; Migraine; ss - PSHx: 11:50 bowel resection; Total abdominal hysterectomy; ss - Immunization history:: Client reports receiving the 2nd dose of the Covid vaccine. - Social history:: Smoking status: Patient denies any tobacco usage or history of. Screenin:22 [facility] ED Fall Risk Assessment (Adult) History of falling in the last 3 months, ld1 including since admission No falls in past 3 months (0 pts). Abuse screen: Denies threats or abuse. Denies injuries from another. Nutritional screening: No deficits noted. Tuberculosis screening: No symptoms or risk factors identified. Assessment: 12:22 General: Appears in no apparent distress. comfortable, Behavior is calm, cooperative, ld1 appropriate for age. Pain: Complains of pain in left arm and anterior aspect of left shoulder Pain does not radiate. Pain currently is 8 out of 10 on a pain scale. Quality of pain is described as throbbing, Pain began suddenly. Neuro: Level of Consciousness is awake, alert, obeys commands, Oriented to person, place, time, situation. Cardiovascular: Capillary refill < 3 seconds Patient's skin is warm and dry. Respiratory: Airway is patent Respiratory effort is even, unlabored. GI: Abdomen is flat, non-distended. : No signs and/or symptoms were reported regarding the genitourinary system. EENT: No signs and/or symptoms were reported regarding the EENT system. Derm: No signs and/or symptoms reported regarding the dermatologic system. Musculoskeletal: No signs and/or symptoms reported regarding the musculoskeletal system. 14:20 Reassessment: Patient appears in no apparent distress at this time. Patient and/or ld1 family updated on plan of care and expected duration. Pain level reassessed. Patient is alert, oriented x 3, equal unlabored respirations, skin warm/dry/pink. Vital Signs: 11:48 BP 140 / 96; Pulse 93; Resp 16; Temp 97.3(TE); Pulse Ox 100% on R/A; Weight 72.57 kg; ss Height 5 ft. 7 in. (170.18 cm); 11:51 Pain 8/10; ss 12:22 BP 139 / 76; Pulse 88; Resp 18; Pulse Ox 100% on R/A; Pain 8/10; ld1 13:45 BP 128 / 77; Pulse 84; Resp 18; Pulse Ox 100% on R/A; ld1 14:21 BP 133 / 84; Pulse 91; Resp 18; Pulse Ox 100% on R/A; Pain 6/10; ld1 11:48 Body Mass Index 25.06 (72.57 kg, 170.18 cm) ED Course: 11:22 Patient arrived in ED. mr 11:22 Taran Benz, is Private Physician. mr 11:27 Dixie Hart FNP-C is PHCP. snw 11:27 William Lamas DO is Attending Physician. snw 11:50 Triage completed. ss 11:51 Arm band placed on right wrist. ss 12:03 Camille Avalos, GAVINO is Primary Nurse. ld1 12:10 Chest Pa And Lat (2 Views) XRAY In Process Unspecified. EDMS 12:10 Shoulder Left (2 View) XRAY In Process Unspecified. EDMS 12:22 Patient has correct armband on for positive identification. Placed in gown. Bed in low ld1 position. Call light in reach. Side rails up X2. Pulse ox on. NIBP on. Door closed. Noise minimized. Warm blanket given. 12:22 No provider procedures requiring assistance completed. ld1 13:06 Taran Benz DO is Referral Physician. snw 14:21 Patient did not have IV access during this emergency room visit. ld1 14:26 Primary Nurse role handed off by Camille Avalos RN iw Administered Medications: 12:22 Drug: Ketorolac 30 mg Route: IM; Site: right gluteus; ld1 12:22 Drug: predniSONE 40 mg Route: PO; ld1 12:22 Drug: Pepcid (famotidine) 20 mg Route: PO; ld1 13:09 Drug: Valium (diazepam) 5 mg Route: PO; ld1 Medication: 12:22 VIS not applicable for this client. ld1 Outcome: 13:06 Discharge ordered by . snw 14:21 Discharged to home ambulatory. ld1 14:21 Condition: stable 14:21 Discharge instructions given to patient, Instructed on discharge instructions, follow up and referral plans. medication usage, Demonstrated understanding of instructions, follow-up care, medications, Prescriptions given X 3. 14:21 Patient left the ED. ld1 14:27 Patient left the ED. em1 Signatures: Dispatcher [employer] EDMS Dixie Hart FNP-C STREET SUPERINTENDENT-Csnw Debbie Bagley Maria Ines Hughes, Joshua Levine RN em1 Nora Grijalva RN RN ss Camille Avalso RN RN ld1
--- NOTE | 2022-03-06 13:07 | EDPHYS ---
Physician Documentation [facility] Name: Mary Malagon Age: 46 yrs Sex: Female : 1975 Arrival Date: 03/06/2022 Time: 11:22 Bed 23 Private MD: Demar [facility] ED Physician William Lamas HPI: 03/06 13:03 This 46 yrs old Female presents to ER via Ambulatory with complaints of Shoulder Pain, snw Unbalanced. 13:03 The patient or guardian complains of contusion, decreased range of motion, pain, that snw is acute. left shoulder and left trapezius. Context: The problem was sustained at home, resulted from from a chronic condition, degenerative joint disease, The patient experiences decreased range of motion, when attempts to raise arm. Onset: The symptoms/episode began/occurred acutely. Associated signs and symptoms: The patient has no apparent associated signs or symptoms. Severity of symptoms: At their worst the symptoms were moderate. The patient has experienced a previous episode, had two months of PT. It is unknown whether or not the patient has recently seen a physician. 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 - Social history:: Smoking status: Patient denies any tobacco usage or history of. ROS: 13:05 Constitutional: Negative for fever, chills, and weight loss, Eyes: Negative for injury, snw pain, redness, and discharge, ENT: Negative for injury, pain, and discharge, Neck: Negative for injury, pain, and swelling, Cardiovascular: Negative for chest pain, palpitations, and edema, Respiratory: Negative for shortness of breath, cough, wheezing, and pleuritic chest pain, Abdomen/GI: Negative for abdominal pain, nausea, vomiting, diarrhea, and constipation, Back: Negative for injury and pain. 13:05 MS/extremity: Positive for decreased range of motion, pain, tenderness, of the left shoulder and anterior aspect of left shoulder. Exam: 11:56 Constitutional: This is a well developed, well nourished patient who is awake, alert, snw and in no acute distress. Head/Face: Normocephalic, atraumatic. Eyes: Pupils equal round and reactive to light, extra-ocular motions intact. Lids and lashes normal. Conjunctiva and sclera are non-icteric and not injected. Cornea within normal limits. Periorbital areas with no swelling, redness, or edema. ENT: Nares patent. No nasal discharge, no septal abnormalities noted. Tympanic membranes are normal and external auditory canals are clear. Oropharynx with no redness, swelling, or masses, exudates, or evidence of obstruction, uvula midline. Mucous membranes moist. Neck: Trachea midline, no thyromegaly or masses palpated, and no cervical lymphadenopathy. Supple, full range of motion without nuchal rigidity, or vertebral point tenderness. No Meningismus. Chest/axilla: Normal chest wall appearance and motion. Nontender with no deformity. No lesions are appreciated. Cardiovascular: Regular rate and rhythm with a normal S1 and S2. No gallops, murmurs, or rubs. Normal PMI, no JVD. No pulse deficits. Respiratory: Lungs have equal breath sounds bilaterally, clear to auscultation and percussion. No rales, rhonchi or wheezes noted. No increased work of breathing, no retractions or nasal flaring. Abdomen/GI: Soft, non-tender, with normal bowel sounds. No distension or tympany. No guarding or rebound. No evidence of tenderness throughout. Back: No spinal tenderness. No costovertebral tenderness. Full range of motion. Skin: Warm, dry with normal turgor. Normal color with no rashes, no lesions, and no evidence of cellulitis. Neuro: Awake and alert, GCS 15, oriented to person, place, time, and situation. Cranial nerves II-XII grossly intact. Motor strength 5/5 in all extremities. Sensory grossly intact. Cerebellar exam normal. Normal gait. Psych: Awake, alert, with orientation to person, place and time. Behavior, mood, and affect are within normal limits. 11:56 Musculoskeletal/extremity: Extremities: grossly normal except: noted in the anterior aspect of left shoulder: ROM: limited active range of motion due to pain, in the left arm, Circulation is intact in all extremities. the anterior aspect of left shoulder Severe pain noted. Vital Signs: 11:48 BP 140 / 96; Pulse 93; Resp 16; Temp 97.3(TE); Pulse Ox 100% on R/A; Weight 72.57 kg; ss Height 5 ft. 7 in. (170.18 cm); 11:51 Pain 8/10; ss 12:22 BP 139 / 76; Pulse 88; Resp 18; Pulse Ox 100% on R/A; Pain 8/10; ld1 13:45 BP 128 / 77; Pulse 84; Resp 18; Pulse Ox 100% on R/A; ld1 14:21 BP 133 / 84; Pulse 91; Resp 18; Pulse Ox 100% on R/A; Pain 6/10; ld1 11:48 Body Mass Index 25.06 (72.57 kg, 170.18 cm) ss MDM: 11:28 Patient medically screened. snw 13:08 Differential diagnosis: DJD, tendonitis. Data reviewed: vital signs, nurses notes, snw radiologic studies, plain films. Counseling: I had a detailed discussion with the patient and/or guardian regarding: the historical points, exam findings, and any diagnostic results supporting the discharge/admit diagnosis, the presence of at least one elevated blood pressure reading (>120/80) during this emergency department visit, radiology results, the need for outpatient follow up, for definitive care, to return to the emergency department if symptoms worsen or persist or if there are any questions or concerns that arise at home. Special discussion: I have referred the patient to see his PCP for further evaluation of high blood pressure. Based on the history and exam findings, there is no indication for further emergent testing or inpatient evaluation. I discussed with the patient/guardian the need to see the orthopedic surgeon for further evaluation of the symptoms. I discussed with the patient/guardian the need to see the primary care provider for further evaluation of the symptoms. 03/06 11:55 Order name: Chest Pa And Lat (2 Views) XRAY; Complete Time: 12:47 snw 03/06 11:55 Order name: Shoulder Left (2 View) XRAY; Complete Time: 12:51 snw 03/06 14:26 Order name: Shukri; Complete Time: 14:26 em1 Administered Medications: 12:22 Drug: Ketorolac 30 mg Route: IM; Site: right gluteus; ld1 12:22 Drug: predniSONE 40 mg Route: PO; ld1 12:22 Drug: Pepcid (famotidine) 20 mg Route: PO; ld1 13:09 Drug: Valium (diazepam) 5 mg Route: PO; ld1 Disposition: 19:19 Co-signature as Attending Physician, William Lamas DO I was immediately available on-site ms3 in the Emergency Department for consultation in the care of the patient. Disposition Summary: 03/06/22 13:06 Discharge Ordered Location: Home snw Condition: Stable snw Diagnosis - Strain of muscle(s) and tendon(s) of the rotator cuff of left shoulder snw Followup: snw - With: Taran Benz DO - When: 5 - 6 days - Reason: Recheck today's complaints, Continuance of care, Re-evaluation by your physician Followup: snw - With: Emergency Department - When: As needed - Reason: Worsening of condition Discharge Instructions: - Discharge Summary Sheet snw - Rotator Cuff Tendinitis snw - Shoulder Pain snw Forms: - Medication Reconciliation Form snw - Thank You Letter snw - Antibiotic Education snw - Prescription Opioid Use snw - Work release form snw Prescriptions: - Tramadol 50 mg Oral Tablet - take 1 tablet by ORAL route every 8 hours as needed; 12 tablet; Refills: 0, snw Product Selection Permitted - Prednisone 20 mg Oral Tablet - take 2 tablets by ORAL route once daily for 5 days; 10 tablet; Refills: 0, snw Product Selection Permitted - orphenadrine citrate 100 mg Oral Tablet Sustained Release - take 1 tablet by ORAL route 2 times per day As needed; 20 tablet; Refills: 0, snw Product Selection Permitted - Pepcid 20 mg Oral Tablet - take 1 tablet by ORAL route once daily; 20 tablet; Refills: 0, Product snw Selection Permitted Signatures: Dispatcher [employer] Dixie Butler FNP-C [employer]PA[employer]ER [employer]-Joshua Alvarez em1 Nora Grijalva RN RN ss Sims, Marcus, DO DO ms3 Dibbern, Camille, RN RN ld1
[2022-03-06] MEDS ORDERED: DIAZEPAM 5 MG TABLET ONE (13:10)
[2022-03-06 15:31] VITALS: TEMP 97.3; O2SAT 100
[2022-03-06 15:44] VITALS: BP 133/84
== END 2022-03-06 14:27 | disposition home or self-care (01) ==
LOC: ER 11:18
DX: S46.012A Strain of muscle(s) and tendon(s) of the rotator cuff of left shoulder, initial encounter (principal)
CPT/HCPCS: 71046; 73030; J7512; 96372; 99284